=== PATIENT | female | born 1995 | race Caucasian/White ===

== ENCOUNTER 2017-12-13 13:31 | Emergency (ER) | payer MEDICAID, SELFPAY ==
[2017-12-13 13:46] VITALS: BP 107/60; PULSE 97; RESP 18; TEMP 36.8; O2SAT 99; BMI 32.4
--- NOTE | 2017-12-13 14:04 | HMH.EDUTC ---
[facility] [place] Clinical Impression: Viral upper respiratory illness Disposition: Home, Self-Care Condition on Discharge: Good Instructions: Common Cold, DI for Viral Upper Respiratory Infection -- Adult Additional Instructions: Considering family tested positive for influenza today you may have been tested early, You have been prescribed Tamiflu At this time I want you to take one tablet daily unless you began to run a fever then take prescribed influenza dose of one tablet twice daily Follow up with your family doctor REturn if needed Prescriptions: Brompheniramine/Pseudoephed/Dm [Bromfed DM Cough Syrup 5mL] 10 ml PO Q4H PRN #200 syrup PRN Reason: Cough Oseltamivir Phosphate [Tamiflu 75mg Capsule] 75 mg PO BID #10 cap Time of Disposition: 14:48 Medical Decision Making - Medical Records Medical records reviewed: Yes: I reviewed the patient's medical records. Vital Signs: 12/13/17 13:46 Temperature 98.2 F Temperature Source Temporal Artery Scan Pulse Rate [Right] 97 H Respiratory Rate 18 Blood Pressure [Right Arm] 107/60 Blood Pressure Mean [Right Arm] 75 Blood Pressure Source [Right Arm] Automatic Cuff Blood Pressure Position [Right Arm] Sitting 02 Sat by Pulse Oximetry 99 Oxygen Delivery Method Room Air - Kamari Inquiry Pt receiving controlled substance: No Kamari was queried for this patient: No [facility] [place] - General Stated complaint: cough congestion vinson ears fever Mode of Arrival: Ambulatory Source of Information: Patient Limitations: No Limitations Description of Symptoms (Recalled from Triage Doc. by RN): COUGH CONGESTION FEVER HEENT Symptoms (Recalled from RN notes): Yes Resp Symptoms (Recalled from RN notes): No Skin Symptoms (Recalled from RN notes): No MS Symptoms (Recalled from RN notes): No Functional Status (Recalled from RN notes): N - History of Present Illness Provider Complaint: Patient state that she has not been feeling well for several days States that she feels like she may have the flu State that she has been having sinus congestion, cough and bodyaches along with fever State that symptoms have continued to get worse since yesterday so she came in today to get seen - Related Data Home Medications Medication Instructions Recorded Confirmed Nadolol [Corgard 20mg tablet] 20 mg PO DAILY 12/13/17 12/13/17 Previous Rx's Medication Instructions Recorded Brompheniramine/Pseudoephed/Dm 10 ml PO Q4H PRN #200 syrup 12/13/17 [Bromfed DM Cough Syrup 5mL] Oseltamivir Phosphate [Tamiflu 75 mg PO BID #10 cap 12/13/17 75mg Capsule] Allergies Allergy/AdvReac Type Severity Reaction Status Date / Time azithromycin [From Zithromax] Allergy Intermediate I-RASH Verified 12/13/17 13:51 cefixime [From Suprax] Allergy Unknown ITCHING,HIV Verified 12/13/17 13:51 ES latex Allergy Unknown VOMITING,SW Verified 12/13/17 13:51 ELLING tramadol Allergy Unknown I-RASH,HEAD Verified 12/13/17 13:51 ACHE - Worker's Comp Is this a Worker's Comp case?: No [facility] History I have reviewed the patient's past medical history: Yes - *Social History Smoking Status: Current every day smoker Tobacco Type: cigarettes Alcohol Intake: never - Psychiatric History Expresses thoughts of harming self/others: None Suicide Plan Description: No Plan ROS Obtained: Yes All systems reviewed & no additional complaints - Constitutional Constitutional: Reports body ache, Reports chills, Reports fever(s) - ENT Ears, Nose, Mouth, and Throat: Reports sinus pain, Reports sinus pressure - Respiratory Respiratory: Yes cough Physical Exam - General General appearance: alert, in no apparent distress - Expanded ENT Exam Nose exam: Present: sinus tenderness, other (Reports tenderness under eyes) Comment: Throat red, irritated, drainage noted - Respiratory Respiratory exam: Present: normal lung sounds bilaterally. Absent: respiratory distress - Cardiovascular Cardiovas
[2017-12-13 19:43] LABS: UTC Strep Screen (Rapid) Negative (Negative)
[2017-12-13 19:43] LABS: UTC Influenza A Antigen Negative (Negative); UTC Influenza B Antigen Negative (Negative)
== END 2017-12-13 15:01 | disposition home or self-care (01) ==
PROVIDERS: Emergency Provider Nurse Practitioner
DX: J06.9 Acute upper respiratory infection, unspecified (principal); F17.210 Nicotine dependence, cigarettes, uncomplicated; Z79.899 Other long term (current) drug therapy
CPT/HCPCS: 87804; 87880; 99201

== ENCOUNTER 2018-02-18 10:35 | Emergency (ER) | payer MEDICAID, SELFPAY ==
[2018-02-18 10:57] VITALS: BP 102/66; PULSE 72; RESP 18; TEMP 36.6; O2SAT 98; BMI 31.4
--- NOTE | 2018-02-18 11:19 | HMH.EDUTC ---
[facility] [place]: Nausea Disposition: Home, Self-Care Condition on Discharge: Good Instructions: DI for Nausea -- Adult, DI for Vomiting -- Adult, Diarrhea, Loperamide Additional Instructions: Make sure that for the next 24 hours you drink plenty of gatoraid, no fried or spicy foods. Then slowly began to ear dry toast and rice then slowly progress to solid foods Follow up with family doctor in 24-48 hours if no improvement or worsening of symptoms Return if needed Straight to ER if any life threatening sympotms Prescriptions: Ondansetron [Zofran 4mg ODT] 4 mg PO Q8H #10 tab.rapdis Referrals: Leon Brown MD [Primary Care Provider] - As needed Time of Disposition: 11:23 Medical Decision Making - Medical Records Medical records reviewed: Yes: I reviewed the patient's medical records. - Kamari Inquiry Pt receiving controlled substance: No Kamari was queried for this patient: No Vital Signs: 02/18/18 10:57 Temperature 97.9 F Temperature Source Oral Pulse Rate [Right Radial] 72 Respiratory Rate 18 Blood Pressure [Right Arm] 102/66 Blood Pressure Mean [Right Arm] 78 02 Sat by Pulse Oximetry 98 Oxygen Delivery Method Room Air [facility] [place] - General Stated complaint: Vomiting;Diarrhea Time Seen by Provider: 02/18/18 11:05 Mode of Arrival: Family Vehicle Source of Information: Patient Limitations: No Limitations Description of Symptoms (Recalled from Triage Doc. by RN): PT C/O NAUSEA, VOMITING, AND DIARRHEA FOR 3-4 DAYS. HEENT Symptoms (Recalled from RN notes): No Resp Symptoms (Recalled from RN notes): No Skin Symptoms (Recalled from RN notes): No MS Symptoms (Recalled from RN notes): No Functional Status (Recalled from RN notes): NA - History of Present Illness Provider Complaint: Patient state that she has been having nausea vomiting and diarrhea on and off for the last 3-4 days State thats that she has taken Phenergan but it makes her sleep and unable to take care of her children State that diarrhea and vomiting is better today but she is still having nausea State that she was wanting to see if there was something else she could get besides the phenergan - Related Data Previous Rx's Medication Instructions Recorded Ondansetron [Zofran 4mg ODT] 4 mg PO Q8H #10 tab.rapdis 02/18/18 Allergies Allergy/AdvReac Type Severity Reaction Status Date / Time azithromycin [From Zithromax] Allergy Intermediate I-RASH Verified 02/18/18 11:01 cefixime [From Suprax] Allergy Unknown ITCHING,HIV Verified 02/18/18 11:01 ES latex Allergy Unknown VOMITING,SW Verified 02/18/18 11:01 ELLING tramadol Allergy Unknown I-RASH,HEAD Verified 02/18/18 11:01 ACHE - Worker's Comp Is this a Worker's Comp case?: No [facility] History I have reviewed the patient's past medical history: Yes Medical History: Denies:: Cancer, Diabetes Mellitus Type 1, Diabetes Mellitus Type 2, MRSA Laterality Cases: Bilateral: Tonsillectomy Amputation: No - Social History Smoking Status: Current every day smoker Tobacco Type: cigarettes Alcohol Intake: never - Psychiatric History Expresses thoughts of harming self/others: None Suicide Plan Description: No Plan ROS Obtained: Yes All systems reviewed & no additional complaints - Gastrointestinal Gastrointestingal: Reports: diarrhea, nausea, vomiting. Denies: abdominal pain Physical Exam - General General appearance: alert, in no apparent distress - ENT ENT exam: Present: normal exam, normal oropharynx, mucous membranes moist, TM's normal bilaterally, normal external ear exam - Respiratory Respiratory exam: Present: normal lung sounds bilaterally. Absent: respiratory distress - Cardiovascular Cardiovascular exam: Present: regular rate, normal rhythm. Absent: JVD - Abdominal Exam Abdominal exam: Present: soft, normal bowel sounds. Absent: distention, tenderness, guarding, hyperactive bowel sounds - Neurological Exam Neurolo
--- NOTE | 2018-02-18 11:23 | ED_ITS ---
[facility] [place]ression: Nausea Disposition: Home, Self-Care Condition on Discharge: Good Instructions: DI for Nausea -- Adult, DI for Vomiting -- Adult, Diarrhea, Loperamide Additional Instructions: Make sure that for the next 24 hours you drink plenty of gatoraid, no fried or spicy foods. Then slowly began to ear dry toast and rice then slowly progress to solid foods Follow up with family doctor in 24-48 hours if no improvement or worsening of symptoms Return if needed Straight to ER if any life threatening sympotms Prescriptions: Ondansetron [Zofran 4mg ODT] 4 mg PO Q8H #10 tab.rapdis Referrals: Leon Brown MD [Primary Care Provider] - As needed Time of Disposition: 11:23 Medical Decision Making - Medical Records Medical records reviewed: Yes: I reviewed the patient's medical records. - Kamari Inquiry Pt receiving controlled substance: No Kamari was queried for this patient: No Vital Signs: 02/18/18 10:57 Temperature 97.9 F Temperature Source Oral Pulse Rate [Right Radial] 72 Respiratory Rate 18 Blood Pressure [Right Arm] 102/66 Blood Pressure Mean [Right Arm] 78 02 Sat by Pulse Oximetry 98 Oxygen Delivery Method Room Air [facility] [place] - General Stated complaint: Vomiting;Diarrhea Time Seen by Provider: 02/18/18 11:05 Mode of Arrival: Family Vehicle Source of Information: Patient Limitations: No Limitations Description of Symptoms (Recalled from Triage Doc. by RN): PT C/O NAUSEA, VOMITING, AND DIARRHEA FOR 3-4 DAYS. HEENT Symptoms (Recalled from RN notes): No Resp Symptoms (Recalled from RN notes): No Skin Symptoms (Recalled from RN notes): No MS Symptoms (Recalled from RN notes): No Functional Status (Recalled from RN notes): NA - History of Present Illness Provider Complaint: Patient state that she has been having nausea vomiting and diarrhea on and off for the last 3-4 days State thats that she has taken Phenergan but it makes her sleep and unable to take care of her children State that diarrhea and vomiting is better today but she is still having nausea State that she was wanting to see if there was something else she could get besides the phenergan - Related Data Previous Rx's Medication Instructions Recorded Ondansetron [Zofran 4mg ODT] 4 mg PO Q8H #10 tab.rapdis 02/18/18 Allergies Allergy/AdvReac Type Severity Reaction Status Date / Time azithromycin [From Zithromax] Allergy Intermediate I-RASH Verified 02/18/18 11: 01 cefixime [From Suprax] Allergy Unknown ITCHING,HIV Verified 02/18/18 11:01 ES latex Allergy Unknown VOMITING,SW Verified 02/18/18 11:01 ELLING tramadol Allergy Unknown I-RASH,HEAD Verified 02/18/18 11:01 ACHE - Worker's Comp Is this a Worker's Comp case?: No [facility] History I have reviewed the patient's past medical history: Yes Medical History: Denies:: Cancer, Diabetes Mellitus Type 1, Diabetes Mellitus Type 2, MRSA Laterality Cases: Bilateral: Tonsillectomy Amputation: No - Social History Smoking Status: Current every day smoker Tobacco Type: cigarettes Alcohol Intake: never - Psychiatric History Expresses thoughts of harming self/others: None Suicide Plan Description: No Plan ROS Obtained: Yes All systems reviewed & no additional complaints - Gastrointestinal Gastrointestingal: Reports: diarrhea, nausea,
[2018-02-18 11:29] VITALS: BP 105/72; PULSE 78; RESP 18; TEMP 36.7; O2SAT 100
== END 2018-02-18 11:29 | disposition home or self-care (01) ==
PROVIDERS: Emergency Provider Nurse Practitioner; Family Provider Internal Medicine Adolescent Medicine; PCP Family Medicine
DX: R11.0 Nausea (principal); R19.7 Diarrhea, unspecified; F17.210 Nicotine dependence, cigarettes, uncomplicated; Z88.1 Allergy status to other antibiotic agents
CPT/HCPCS: 99201

== ENCOUNTER → 2018-05-22 14:25 | Outpatient (CLI) | payer MEDICAID, SELFPAY ==
[2018-05-22 14:47] LABS: Basophils # 0.1 K/mm3 (0-0.2); Basophils % 0.6 % (0.1-2.0); Eosinophils # 0.2 K/mm3 (0.0-0.4); Eosinophils % 1.9 % (0.1-12.0); Hematocrit 43.3 % (37.0-47.0); Hemoglobin 13.5 g/dL (12.2-16.2); Lymphocytes # 1.9 K/mm3 (0.7-4.5); Lymphocytes % 21.1 K/mm3 (10-50); Mean Corpuscular HGB Conc 31.3 g/dL (31.8-35.4); Mean Corpuscular Hemoglobin 28.7 pg (27.0-31.2); Mean Corpuscular Volume 91.8 fl (81-99); Mean Platelet Volume 9.9 fl (7.4-10.4); Monocytes # 0.5 K/mm3 (0.1-1.0); Monocytes % 5.3 % (1.7-9.3); Neutrophils # 6.5 K/mm3 (1.8-7.8); Neutrophils % 71.1 % (37.0-80.0); Platelet Count 180 K/mm3 (142-424); Red Blood Count 4.72 M/mm3 (4.20-5.40); Red Cell Distribution Width 13.1 % (11.5-17.5); White Blood Count 9.2 K/mm3 (4.8-10.8)
[2018-05-22 15:21] LABS: HCG Qualitative, Serum Negative (Negative)
[2018-05-22 15:40] LABS: Free T4 (Free Thyroxine) 1.19 ng/dl (0.76-1.46); Thyroid Stimulating Hormone 0.55 uIU/ml (0.358-3.740)
== END ==
PROVIDERS: Visit Provider Nurse Practitioner Family
DX: N93.9 Abnormal uterine and vaginal bleeding, unspecified (principal)
CPT/HCPCS: 36415; 84439; 84443; 84703; 85025

== ENCOUNTER → 2018-06-12 13:05 | Outpatient (CLI) | payer MEDICAID, SELFPAY ==
--- NOTE | 2018-06-12 13:08 | US_ITS ---
US transvaginal HISTORY: Left lower quadrant pelvic pain ITS.REASON: DUB ORDERING PHYSICIAN: Millicent Mayer PATIENT AGE: 23 years Comparison: And sagittal ultrasound the pelvis 12/29/2014 FINDINGS: The uterus is mildly enlarged measuring 8.5 x 3.9 x 4.5 cm. The endometrial echo appears normal and there is a tiny amount of fluid within the endometrial cavity. The left ovary appears normal size and has a couple tiny follicular cysts.. The right ovary is normal size and shows a couple of follicular cysts as well. There is moderate cul-de-sac fluid more than physiologic and possibly the been a recently ruptured ovarian cyst. IMPRESSION: Mild uterine enlargement with increased amount of cul-de-sac fluid as noted
== END ==
PROVIDERS: Family Provider Internal Medicine Adolescent Medicine; PCP Family Medicine; Visit Provider Nurse Practitioner Family
DX: N93.9 Abnormal uterine and vaginal bleeding, unspecified (principal)
CPT/HCPCS: 76830

== ENCOUNTER → 2018-08-03 12:21 | Outpatient (CLI) | payer MEDICAID, SELFPAY ==
[2018-08-06 05:25] LABS: HIV Screen 4th Generation wRfx Non Reactive (Non Reactive)
[2018-08-08 07:46] LABS: HSV, IgM I/II Combination <0.91 Ratio (0.00-0.90)
== END ==
PROVIDERS: PCP Family Medicine; Visit Provider Nurse Practitioner Family
DX: Z20.2 Contact with and (suspected) exposure to infections with a predominantly sexual mode of transmission (principal)
CPT/HCPCS: 36415; 86703; 86790; G0432

== ENCOUNTER → 2018-08-08 13:38 | Outpatient (CLI) | payer MEDICAID, SELFPAY ==
[2018-08-08 14:15] LABS: Hematocrit 41.3 % (37.0-47.0); Hemoglobin 13.4 g/dL (12.2-16.2)
[2018-08-08 15:22] LABS: Anion Gap 11.4 mEq/L (5-15); Blood Urea Nitrogen 11 mg/dL (7-18); Calcium 9.6 mg/dL (8.5-10.1); Carbon Dioxide 27 mmol/L (21.0-32.0); Chloride 107 mmol/L (98-107); Creatinine,Serum 0.83 mg/dL (0.55-1.02); Estimated Glomerular Filt Rate 84 ml/min (>60); GFR (African American) 102 ML/MIN (>60); Glucose 80 mg/dL (74-106); Potassium 4.4 mmoL/L (3.5-5.1); Sodium 141 mmol/L (136-145)
[2018-08-08 15:53] LABS: HCG Qualitative, Serum Negative (Negative)
== END ==
PROVIDERS: PCP Family Medicine; Visit Provider Obstetrics & Gynecology
DX: Z01.818 Encounter for other preprocedural examination (principal); N93.8 Other specified abnormal uterine and vaginal bleeding
CPT/HCPCS: 36415; 80048; 84703; 85014; 85018

== ENCOUNTER → 2019-07-30 13:15 | Outpatient (CLI) | payer MEDICAID, SELFPAY ==
--- NOTE | 2019-07-30 13:18 | US_ITS ---
PROCEDURE: US TRANSVAGINAL CLINICAL INDICATION: us t/v- pelvic pain Pelvic pain COMPARISON: TRANVAG US transvaginal from 06/12/2018 FINDINGS: The uterus has an unremarkable appearance 8 x 4 x 4.7 cm with a combined endometrial thickness of 7 mm. No uterine mass evident. Left ovary is 3 x 1.5 cm with blood flow noted and no mass. Right ovary is 3.5 x 1.9 cm with small follicles and blood flow noted. There is a 1 cm cyst within the right ovary with ring of fire appearance consistent with corpus luteum cyst. No cul-de-sac fluid evident. IMPRESSION: 1 cm right corpus luteum ovarian cyst otherwise negative Dictated by: Norman De La Rosa MD 07/30/2019 18:59 Electronically signed by Norman De La Rosa MD in [place] 07/30/2019 18:59
== END ==
PROVIDERS: PCP Family Medicine; Visit Provider Obstetrics & Gynecology
DX: R10.2 Pelvic and perineal pain (principal)
CPT/HCPCS: 76830

== ENCOUNTER 2020-06-01 14:05 | Emergency (ER) | payer OTHER, SELFPAY ==
--- NOTE | 2020-06-01 14:06 | PC.NURSE ---
c-collar placed on pt
--- NOTE | 2020-06-01 14:09 | CT_ITS ---
PROCEDURE: CT HEAD/BRAIN WO CON CLINICAL INDICATION: fall, pain Head injury with headache/pain, contusion, abrasion or hematoma COMPARISON: No exams were available for comparison TECHNIQUE: Axial images obtained. All CT scans at the facility use one or more dose reduction, viz: automated exposure control, ma/kV adjustment per patient size (including targeted exams where dose is matched to indication, i.e. head), or iterative reconstruction technique. FINDINGS: No midline shift, mass effect, intracranial hemorrhage, hydrocephalus, or extra-axial fluid collection is evident. There is asymmetry in the temporal horns of the lateral ventricles with the right side more prominent than the left. This is of questionable clinical significance. No obvious hemorrhage or mass evident on the left. Nonemergent MRI may provide further evaluation if clinically desired. The calvarium has an unremarkable appearance. There is an air-fluid level in the left maxillary sinus no sinus air-fluid level. IMPRESSION: 1. No definite acute intracranial findings. 2. Asymmetry in the temporal horns of the lateral ventricles which may be better evaluated with nonemergent MRI 3. Air-fluid level left maxillary sinus which could be inflammatory or posttraumatic Dictated by: Norman De La Rosa MD 06/01/2020 15:44 Electronically signed by Norman De La Rosa MD in [facility] 06/01/2020 15:44
--- NOTE | 2020-06-01 14:09 | CT_ITS ---
PROCEDURE: CT CERVICAL SPINE WO CON CLINICAL INDICATION: fall, pain Neck injury with pain, contusion/abrasion or hematoma, cervical sprain/strain the COMPARISON: No exams were available for comparison TECHNIQUE: Axial images obtained with sagittal and coronal reformats. All CT scans at the facility use one or more dose reduction, viz: automated exposure control, ma/kV adjustment per patient size (including targeted exams where dose is matched to indication, i.e. head), or iterative reconstruction technique. Axial spiral CT scanning performed of the cervical spine beginning at the base of the skull and continuing to the upper T-spine. 3-D multiplanar reconstruction with 3-D manipulation of volumetric data set in image rendering was completed by the radiologist and/or technologist with the supervision of the radiologist on independent workstation. FINDINGS: There is straightening/reversal of the normal lordosis which may be due to patient positioning or muscle spasm. The. No fracture or dislocation. No lytic or blastic change. Lung apices are clear. The thyroid gland is slightly enlarged IMPRESSION: No acute fracture. Loss of lordosis Dictated by: Norman De La Rosa MD 06/01/2020 15:47 Electronically signed by Norman De La Rosa MD in [place] 06/01/2020 15:47
--- NOTE | 2020-06-01 14:13 | HMH.EDGENADL ---
ED Disposition Clinical Impression: Concussion Qualifiers: Encounter type: initial encounter Loss of consciousness presence/duration: without LOC Qualified Code(s): S06.0X0A - Concussion without loss of consciousness, initial encounter Cervical strain, acute Qualifiers: Encounter type: initial encounter Qualified Code(s): S16.1XXA - Strain of muscle, fascia and tendon at neck level, initial encounter Disposition: Home, Self-Care Condition on Discharge: Good Instructions: DI for Concussion, Concussion, DI for Neck Pain Additional Instructions: Low up with your PCP in the next 2 to 3 days. Ibuprofen for pain. Cyclobenzaprine as needed. Follow concussion precautions. You have any new, changing, worsening, or concerning symptoms, come back to the emergency department. Prescriptions: Cyclobenzaprine HCl [Cyclobenzaprine 5mg Tab] 5 mg PO Q8H 3 Days #9 tab Transmission Status: Received by [facility] Referrals: Leon Brown MD [Primary Care Provider] - Time of Disposition: 16:55 - Critical Care Critical Care Time: No Attestation: On 06/01/20, the high probability of a clinically significant, sudden or life threatening deterioration of the following system(s) required my full and direct attention, intervention and personal management. The time I documented below is in addition to time spent performing reported procedures but includes the following listed in this critical care notation. Medical Decision Making - Medical Records MR Comment: 25-year-old female with no past medical history presents emergency department with headache and neck pain after a fall. She arrives to the ED hemodynamically stable, with reassuring vital signs, and looks well on exam. She likely has a concussion and cervical strain, however, given her increasing headache and neck pain will get a CT head and C-spine to rule out intracranial injury or fracture and reassess. He has no focal neurological deficits in bilateral upper extremities with full strength and range of motion. On reassessment, she remains well. CT of the head and C-spine personally reviewed and read by radiology and do not show any signs of acute injury. I did speak with her about the lateral ventricles on her CT head and the possibility of a future nonemergent MRI to further evaluate, however this is nothing to do with her trauma today and she is completely neurologically intact. Likely concussion symptoms with cervical strain. I advised that she follow-up with her PCP in the next 2 to 3 days and take ibuprofen and muscle relaxer if needed. She was given concussion precautions. She was given strict return precautions and discharge instructions and verbalized an understanding and agreement to the plan. Safe to discharge. - Kamari Inquiry Pt receiving controlled substance: No Vital Signs: 06/01/20 14:19 06/01/20 14:36 06/01/20 15:44 Temperature 98.4 F Temperature Source Oral Pulse Rate Pulse Rate [Right Radial] 74 86 70 Respiratory Rate 18 Blood Pressure Blood Pressure [Right Arm] 135/87 110/62 96/63 L Blood Pressure Mean [Right Arm] 103 78 74 Blood Pressure Source [Right Arm] Automatic Cuff Automatic Cuff Automatic Cuff Blood Pressure Position Blood Pressure Position [Right Arm] Sitting Sitting Sitting 02 Sat by Pulse Oximetry 99 99 98 Oxygen Delivery Method Room Air Room Air Room Air 06/01/20 16:06 06/01/20 17:23 Temperature 98 F Temperature Source Oral Pulse Rate 78 Pulse Rate [Right Radial] 79 Respiratory Rate 16 Blood Pressure 112/65 Blood Pressure [Right Arm] 98/68 L Blood Pressure Mean [Right Arm] 78 Blood Pressure Source [Right Arm] Automatic Cuff Blood Pressure Position Sitting Blood Pressure Position [Right Arm] Sitting 02 Sat by Pulse Oximetry 68 L Oxygen Delivery Method Room Air Room Air - Lab Data Lab Results 06/01/20 14:12: Urine HCG, Qual Negative Orders (Tests/Meds): ED MEDICATIONS Discontinued Me
[2020-06-01 14:19] VITALS: BP 135/87; PULSE 74; RESP 18; TEMP 36.9; O2SAT 99; BMI 27.0
[2020-06-01 14:25] LABS: Urine Pregnancy, HCG Qual. Negative (Negative)
--- NOTE | 2020-06-01 14:25 | PC.NURSE ---
rad notified of CT orders, spoke with erinn
[2020-06-01 14:36] VITALS: BP 110/62; PULSE 86; O2SAT 99
--- NOTE | 2020-06-01 14:51 | PC.NURSE ---
pt with rad
--- NOTE | 2020-06-01 15:06 | PC.NURSE ---
pt return from ct
[2020-06-01 15:44] VITALS: BP 96/63; PULSE 70; O2SAT 98
[2020-06-01 16:06] VITALS: BP 98/68; PULSE 79; O2SAT 68
[2020-06-01 17:23] VITALS: BP 112/65; PULSE 78; RESP 16; TEMP 36.6; O2SAT 98
== END 2020-06-01 17:26 | disposition home or self-care (01) ==
PROVIDERS: Emergency Provider Emergency Medicine; PCP Family Medicine
DX: S06.0X0A Concussion without loss of consciousness, initial encounter (principal); S16.1XXA Strain of muscle, fascia and tendon at neck level, initial encounter; W01.0XXA Fall on same level from slipping, tripping and stumbling without subsequent striking against object, initial encounter; Y92.89 Other specified places as the place of occurrence of the external cause; Z91.040 Latex allergy status; F41.9 Anxiety disorder, unspecified; F17.210 Nicotine dependence, cigarettes, uncomplicated
CPT/HCPCS: 70450; 72125; 81025; 99283

== ENCOUNTER 2020-06-16 16:09 | Emergency (ER) | payer OTHER, SELFPAY ==
[2020-06-16 16:21] VITALS: BP 127/68; PULSE 75; RESP 20; TEMP 36.9; O2SAT 100; BMI 27.0
--- NOTE | 2020-06-16 16:28 | HMH.EDUTC ---
[facility] [place] Disposition Clinical Impression: Irregular heart beat Disposition: Still a Patient Condition on Discharge: Good Referrals: Leon Brown MD [Primary Care Provider] - Time of Disposition: 16:41 Medical Decision Making - Kamari Inquiry Pt receiving controlled substance: No Vital Signs: 06/16/20 16:21 Temperature 98.5 F Temperature Source Temporal Artery Scan Pulse Rate [Right Brachial] 75 Respiratory Rate 20 Blood Pressure [Right Arm] 127/68 Blood Pressure Mean [Right Arm] 87 Blood Pressure Source [Right Arm] Automatic Cuff Blood Pressure Position [Right Arm] Sitting 02 Sat by Pulse Oximetry 100 Oxygen Delivery Method Room Air Orders (Tests/Meds): ORDERS Category Date Time Status 12-lead EKG Request [ECG Request by /Kathy] Stat Y 06/16/20 16:28 Ordered Medical Decision Narrative: pt was sent to ed for eval due to abnormal ekg and c/o of heart burn, not feeling right and pain in back [facility] [place] HPI - General Chief complaint: Urgent Treatment Center Stated complaint: Low grade fevee with ear pain Time Seen by Provider: 06/16/20 16:29 Mode of Arrival: Ambulatory Source of Information: Patient Limitations: No Limitations HEENT Symptoms (Recalled from RN notes): Yes Resp Symptoms (Recalled from RN notes): Yes Skin Symptoms (Recalled from RN notes): No MS Symptoms (Recalled from RN notes): No Functional Status (Recalled from RN notes): none - History of Present Illness Provider Complaint: 25 yr old female presents for rocco ear pain, heartburn and pain in upper back and not feeling well. - Related Data Home Medications Medication Instructions Recorded Confirmed Cyclobenzaprine HCl 5 mg PO Q8H 06/16/20 06/16/20 [Cyclobenzaprine 5mg Tab] Allergies Allergy/AdvReac Type Severity Reaction Status Date / Time azithromycin [From Zithromax] Allergy Intermediate I-RASH Verified 06/16/20 16:13 cefixime [From Suprax] Allergy Unknown ITCHING,HIV Verified 06/16/20 16:13 ES latex Allergy Unknown VOMITING,SW Verified 06/16/20 16:13 ELLING tramadol Allergy Unknown I-RASH,HEAD Verified 06/16/20 16:13 ACHE - Worker's Comp Is this a Worker's Comp case?: No [facility] History - Hepatitis A Screen Drug use history?: No High risk sexual behaviors?: No History of sexually transmitted infection?: No Currently employed?: No Childcare worker?: No Do you have indoor plumbing?: Yes Do you have electricity?: Yes Attestation statement:: This patient has been screened for Hepatitis A risk factors. I have reviewed the patient's past medical history: Yes Medical History: Reports:: Anxiety Denies:: Cancer, Depression, Diabetes Mellitus Type 1, Diabetes Mellitus Type 2, Hypertension, Internal Pacemaker, MRSA, Seizures Other Medical History: Denies: Blood Transfusion Reaction Laterality Cases: Bilateral: Tonsillectomy Other Surgeries: Yes: . No: Pacemaker Amputation: No Fractures: No Comment: 3 cyst from ovaries removed, wisdom teeth - Social History Smoking Status: Current every day smoker Tobacco Type: cigarettes # Packs/Day (cigarettes): 1 Alcohol Intake: never Alcohol Intake Frequency:: holidays/special occasions only Substance Use Type: denies use Occupational Status: employed Housing: house Household Members: family - Psychiatric History Pschychiatric History:: Reports:: Anxiety Denies:: Depression Family Hx:: Cancer, Diabetes, Heart Attack, Hyperlipidemia, Hypertension, Stroke, Thyroid Disorder, Asthma, Anemia ROS Obtained: Yes Systems reviewed as appropriate & no additional complaints - Constitutional Constitutional: Reports system reviewed and no additional complaints, except as docu, Denies fever(s) - Eyes Eyes: Reports system reviewed and no additional complaints, except as docu, Denies dry eyes - ENT Ears, Nose, Mouth, and Throat: Reports system reviewed and no additional complaints, except as docu, Reports otalgia, Denies nose pain - Cardiovascular
--- NOTE | 2020-06-16 16:36 | ECG_ITS ---
APPROVED REPORT Exam: Resting ECG HR:84 bpm ECG Measurements Heart Rate 84 AXES WV 110 P 40 QRSd 70 QRS 33 QT 346 T 28 QTc 408 <Conclusion> Sinus rhythm with sinus arrhythmia with short W[place] Otherwise normal ECG Electronically signed by : Leon Smallwood, 06/21/2020 21:22:48
[2020-06-16 16:48] VITALS: BP 128/80; PULSE 95; RESP 14; TEMP 37.2; O2SAT 99; BMI 26.6
--- NOTE | 2020-06-16 16:52 | HMH.EDGENADL ---
ED Disposition Clinical Impression: Dyspepsia, Ear pain, left Disposition: Home, Self-Care Condition on Discharge: Good Instructions: DI for Heartburn, DI for Ear Pain-Adult Referrals: Leon Brown MD [Primary Care Provider] - 3 days - Critical Care Critical Care Time: No Attestation: On 06/16/20, the high probability of a clinically significant, sudden or life threatening deterioration of the following system(s) required my full and direct attention, intervention and personal management. The time I documented below is in addition to time spent performing reported procedures but includes the following listed in this critical care notation. Medical Decision Making - Medical Records Medical records reviewed: Yes: I reviewed the patient's medical records. - Kamari Inquiry Pt receiving controlled substance: No Vital Signs: 06/16/20 16:21 06/16/20 16:48 Temperature 98.5 F 99 F Temperature Source Temporal Artery Scan Oral Pulse Rate [Right Brachial] 75 95 H Respiratory Rate 20 14 Blood Pressure [Right Arm] 127/68 128/80 Blood Pressure Mean [Right Arm] 87 96 Blood Pressure Source [Right Arm] Automatic Cuff Blood Pressure Position [Right Arm] Sitting 02 Sat by Pulse Oximetry 100 99 Oxygen Delivery Method Room Air - Lab Data Lab Results 06/16/20 17:13: Urine HCG, Qual Negative Orders (Tests/Meds): ORDERS Category Date Time Status Chest XR 2 view (NOT portable) [XR chest 2V] Stat Exams 06/16/20 16:45 Ordered Urinalysis and Microscopic Stat Lab 06/16/20 17:13 Received 12-lead EKG Request [ECG Request by /Kathy] Stat Y 06/16/20 16:28 Ordered - ECG Data Tracing #1 EKG at 1636 shows a sinus rhythm with a rate of 84. There is some sinus arrhythmia. Slightly short KS, no delta waves. Otherwise normal QRS and QTc. No STEMI, no signs of acute ischemia. EKG interpreted by me. Medical Decision Narrative: Patient with no chest pain or shortness of breath. Chest x-ray recommended, but patient refused. EKG only shows some sinus arrhythmia and slightly short KS, no delta waves that would indicate WPW. Patient is a smoker and eats a lot of spicy foods with heartburn that improves with Tums and milk. I recommended ranitidine daily with Maalox occasionally if needed. Advise follow-up with primary care provider in 2 to 3 days for reevaluation. History and exam inconsistent with ACS. She is PERC negative. Concerning her initial presenting complaint of ear pain, she does appear to have some serous effusion bilaterally. I recommended decongestants. No otitis media or externa. General Adult HPI - General Chief complaint: Ear Stated complaint: Low grade fevee with ear pain Time Seen by Provider: 06/16/20 16:29 Mode of Arrival: Ambulatory Limitations: No Limitations Description of Symptoms (Recalled from ER Triage Doc. by RN): Pt states for the last week she has been having bilateral ear pain, low grade fever, and neck pain. Pt sent from [facility] because she has been having heart burn for the past week and has a hx of a mitral valve prolapse. - History of Present Illness HPI narrative: This is a 25-year-old female who initially presented to the urgent treatment center today for left ear pain. She was told she has some fluid on the ear, but then later complained of some heartburn over the last 1 to 2 weeks, so was sent over here for further evaluation after her EKG showed sinus arrhythmia. Patient does not have any heartburn currently. She is a smoker and eats a lot of spicy foods. She has tried Tums and milk which do help temporarily. Currently no heartburn or abdominal pain. She denies any chest pain, shortness of breath. She does have a history of mitral valve prolapse and was previously prescribed beta-blockers, but did not like the way they made her feel, so stopped them. She has not had any complications or problems since. - Related Data Home Medications Medication Instructions
[2020-06-16 17:27] LABS: Microscopic, Urine URINE MICROSCOPIC (MICROSCOPIC)
[2020-06-16 17:37] LABS: Appearance,Urine CLEAR (Clear); Bilirubin,Urine Negative (Negative); Blood, Urine Negative (Negative); Color,Urine YELLOW (Yellow); Glucose,Urine (UA) Negative (Negative); Ketones,Urine Negative (Negative); Leukocyte Esterase,Urine Negative (Negative); Nitrate,Urine Negative (Negative); Protein,Urine Negative (Negative); Specific Gravity, Urine 1.015 (1.005-1.030); Urobilinogen,Urine 0.2 EU/dl (0.2)
[2020-06-16 17:44] LABS: Urine Pregnancy, HCG Qual. Negative (Negative)
[2020-06-16 18:00] LABS: Bacteria,Urine Trace /lpf; Squamous Epithelial Cell,Urine Occasional #/hpf (0-5); WBC,Urine Occasional #/hpf (0-3)
[2020-06-16 18:05] VITALS: BP 124/85; PULSE 80; RESP 18; TEMP 36.7; O2SAT 98
== END 2020-06-16 18:06 | disposition home or self-care (01) ==
LOC: UTC 16:41 → ER 16:42
PROVIDERS: Emergency Medicine; Emergency Provider Nurse Practitioner Family; PCP Family Medicine
DX: R10.13 Epigastric pain (principal); F17.210 Nicotine dependence, cigarettes, uncomplicated; F41.9 Anxiety disorder, unspecified; M54.2 Cervicalgia; Z88.1 Allergy status to other antibiotic agents; Z91.040 Latex allergy status; I34.1 Nonrheumatic mitral (valve) prolapse
CPT/HCPCS: 81001; 81025; 93005; 99282

== ENCOUNTER → 2020-06-24 16:05 | Outpatient (CLI) | payer OTHER, SELFPAY ==
--- NOTE | 2020-06-24 | XR_ITS ---
PROCEDURE: XR CHEST PORTABLE CLINICAL HISTORY: COVID TESTING Cough COMPARISON: CR CXR1 CHEST-PORTABLE from 04/29/2015 CR CXR CHEST(2 VIEWS-NOT PORTABLE) from 10/03/2016 FINDINGS: The cardiomediastinal silhouette and pulmonary vascularity are within normal limits. Lung apices are clipped on the image. The remaining lungs are clear. No acute bony abnormalities. IMPRESSION: No acute finding of the visualized lung back.. Lung apices are not included on the exam Dictated b Norman De La Rosa MD 06/24/2020 18:31 Norman De La Rosa MD in [place] 06/24/2020 18:31
== END ==
PROVIDERS: PCP Family Medicine; Visit Provider Nurse Practitioner
DX: Z03.818 Encounter for observation for suspected exposure to other biological agents ruled out (principal)
CPT/HCPCS: 71045; U0003

== ENCOUNTER → 2020-08-25 10:54 | Outpatient (CLI) | payer OTHER, SELFPAY ==
[2020-08-25 11:32] LABS: Basophils % 0.9 % (0.1-2.0); Eosinophils # 0.1 K/mm3 (0.0-0.4); Eosinophils % 3.3 % (0.1-12.0); Hematocrit 41.3 % (37.0-47.0); Hemoglobin 13.3 g/dL (12.2-16.2); Lymphocytes # 1.6 K/mm3 (0.7-4.5); Lymphocytes % 38.9 % (10-50); Mean Corpuscular HGB Conc 32.2 g/dL (31.8-35.4); Mean Corpuscular Hemoglobin 30.2 pg (27.0-31.2); Mean Corpuscular Volume 93.7 fl (81-99); Mean Platelet Volume 8.9 fl (7.4-10.4); Monocytes # 0.3 K/mm3 (0.1-1.0); Monocytes % 6.4 % (1.7-9.3); Neutrophils % 50.6 % (37.0-80.0); Platelet Count 152 K/mm3 (142-424); Red Blood Count 4.41 M/mm3 (4.20-5.40); Red Cell Distribution Width 12.7 % (11.5-17.5)
[2020-08-25 11:54] LABS: Anion Gap 8.2 mEq/L (5-15); Blood Urea Nitrogen 12 mg/dl (7-17); Calcium 9.7 mg/dl (8.4-10.2); Carbon Dioxide 25 mmol/L (22.0-30.0); Chloride 110 mmol/L (98-107); Estimated Glomerular Filt Rate 87 ml/min (>60); GFR (African American) 105 ML/MIN (>60); Glucose 76 mg/dl (74-100); Potassium 4.2 mmoL/L (3.5-5.1); Sodium 139 mmol/L (136-145)
[2020-08-25 12:03] LABS: HCG Qualitative, Serum Negative (Negative)
[2020-08-25 13:28] LABS: Coronavirus 19 IgG Antibody Negative (Negative); Coronavirus 19 IgM Antibody Negative (Negative)
== END ==
PROVIDERS: Visit Provider Nurse Practitioner Obstetrics & Gynecology
DX: Z01.89 Encounter for other specified special examinations (principal); R10.2 Pelvic and perineal pain; N94.10 Unspecified dyspareunia; N80.9 Endometriosis, unspecified
CPT/HCPCS: 36415; 80048; 84703; 85025; 86328

== ENCOUNTER 2020-08-26 07:27 | Day surgery (SDC) | payer OTHER, SELFPAY ==
[2020-08-24 14:52] VITALS: BMI 27.0
[2020-08-26] VITALS (15 sets, daily range): BP systolic 96–113; BP diastolic 50–70; PULSE 67–118; RESP 12–22; TEMP 36.3–43; O2SAT 90–100
--- NOTE | 2020-08-26 08:17 | P.PN_ITS ---
[facility] Anesthesia Checklist - Patient Identification Patient Identification: Arm Band - Structural Data Admitted From: Home Planned Operative Procedure/s: diagnostic laparoscopy, lysis of adhesions, resection of endometriosis Consent for Planned Operative Procedure(s) Verified: Yes Verified Documents: Surgical Consent, History and Physical - NPO Status Verified Time NPO: 00:00 - Additional verifications Anesthesia Reactions: No Hx Blood Transfusions: Yes Blood Transfusion Reaction: No - Airway Assessment C-Spine Mobility Assessed: Yes (mp2) TMJ Mobility Assessed: Yes Dentition: Good Dentition - Neurological Assessment Level of Consciousness: Awake, Alert - Anesthesia Plan Anesthesia Risk discussed: Yes Anesthesia Plan: Verified ASA Class: II Anesthesia Type: General [facility] History I have reviewed the patient's past medical history: Yes Medical History: Reports:: Anxiety, Valvular Heart Disease ( Mitral Valve Prolapse ) Denies:: Cancer, Depression, Diabetes Mellitus Type 1, Diabetes Mellitus Type 2, Hypertension, Internal Pacemaker, MRSA, Seizures *Have you ever received a pneumonia vaccine?: No *Have you received a flu vaccine this season?: No Other Medical History: Denies: Blood Transfusion Reaction Anesthesia experience/problems:: nac Laterality Cases: Bilateral: Tonsillectomy Other Surgeries: Yes: Cholecystectomy, , Diagnostic Lap, Other. No: Pacemaker Amputation: No Fractures: No - *Social History Last grade of school completed: High school graduate Smoking Status: Current every day smoker Tobacco Type: cigarettes # Packs/Day (cigarettes): 1 Alcohol Intake: never Alcohol Intake Frequency:: holidays/special occasions only Substance Use Type: denies use *Occupational Status:: employed Housing: house Household Members: spouse *Travel in the last 8 weeks: None - Psychiatric History Pschychiatric History:: Reports:: Anxiety Denies:: Depression Family Hx:: Cancer, Diabetes, Heart Attack, Hyperlipidemia, Hypertension, Stroke, Thyroid Disorder, Asthma, Anemia
--- NOTE | 2020-08-26 09:50 | HMH.OPNOTE ---
Date of procedure: 08/26/20 Pre-op Diagnosis:: Pelvic pain, dyspareunia history of endometriosis, history of adhesions Post-op Diagnosis:: Pelvic pain, pelvic peritoneal adhesions Procedure performed:: Diagnostic laparoscopy with extensive lysis of adhesions Surgeon:: Mike Yang MD ETL CONSULTANT:: Damon Shabazz Anesthesia: GETA Estimated blood loss (mL): 75 Clinical Note:: She is a 25-year-old lady who has had previous sections. She has had multiple surgeries for endometriosis and lysis of adhesions. She complains of dyspareunia as well as pain. After having discussed the risks and benefits we elected to perform a laparoscopy with possible resection of endometriosis as well as lysis of adhesions. Operative findings:: She had a normal-appearing uterus with extensive adhesions along the peritoneal scar and anterior abdominal wall. There was an adhesion from the right side of the omentum to the deep pelvis as well. Ovaries and tubes appeared normal. Operative note:: She was taken the operating room where general anesthesia was found be adequate. She was prepped and draped in the normal sterile fashion in the semilithotomy position. Weighted speculum placed in vagina and the anterior lip of the cervix was grasped with a tenaculum. Mcnair dilators used to dilate the cervix to approximately 4 mm. We then inserted a Juli uterine manipulator into the uterine cavity. I changed gloves and injected 10 cc of 0.25% ropivacaine around the umbilicus. I made a small incision within the umbilicus and inserted a Veress needle into the abdominal cavity. The abdominal cavity was then insufflated with carbon oxide gas to pressure of 20 mmHg. I then inserted under direct vision after injecting through and through a 5 mm trocar in the suprapubic area. I identified the inferior epigastric arteries on the left side, went lateral to these and injected through and through. I then placed another 5 mm trocar under direct vision. Findings were as previously stated. I then took down the adhesions along her bladder and anterior abdominal wall as well as the adhesions that were overlying her uterus. The upper abdomen was examined and appeared to be normal. After extensively removing these adhesions. I then rinsed the area well. After assuring hemostasis I then elected to spray the area with Nick. I then inserted an 8 mm trocar in the suprapubic port to allow me to place the Interceed and Gelfoam as well as Surgicel. I then placed 2 large pieces of Interceed over top of the anterior uterus between the uterus and the anterior wall so as to prevent further adhesions. It appeared that I may have perforated the uterus with the dilator and I placed a small piece of Gelfoam into this defect. After assuring hemostasis I then placed a large piece of Surgicel over this as well. I let the gas out of the abdomen once again hemostasis was assured. The pelvis had been previously rinsed well with saline. The abdominal cavity was then reinsufflated and hemostasis was assured. The secondary trochars were removed under direct vision. The gas was let out the abdomen. The primary trocar and camera were removed together. The 8 mm trocar site was then closed deeply with 2-0 Vicryl suture followed by subcuticular 4-0 Monocryl. The 5 mm trocar sites were closed with subcuticular 4-0 Monocryl. Sterile dressings were applied. She tolerated fusion well and was taken to the recovery room in excellent condition. All sponge, instrument and needle counts were correct. Estimated blood loss was less than 75 cc. Condition: stable Disposition: PACU Specimens:: None Complications:: Perforation of the uterus
--- NOTE | 2020-08-26 09:55 | P.PN_ITS ---
[facility] Anesthesia Record Part I Intake, IV Amount: 1,500 Estimated blood loss (mL): 75 Urine output (mL): 150 Blood Pressure: 111/65 SaO2: 93 Pulse Rate: 118 Respiratory Rate: 14 Temperature: 97.6 F Patient is:: Awake, Stable Stable to PACU at:: 09:55
--- NOTE | 2020-08-27 06:44 | HMH.ANESII ---
[facility] Anesthesia Record Part II Discharge Time: 10:50 Destination: Surgical Day Care (OP Surgery) PACU nurse assessment reviewed?: Yes Patient Condition:: Good Anesthesia Complications:: None Swallowing reflex intact?: Yes Cyanosis?: No Blood Pressure: 104/65 Pulse Rate: 86 Temperature: 98.2 F Mental Status: Alert & Oriented Pain level:: 7 Nausea and/or vomitting:: None Intake, IV Amount: 0 (NM)
[2020-08-27 06:47] VITALS: BP 104/65; PULSE 86; TEMP 36.8
== END 2020-08-26 11:25 | disposition home or self-care (01) ==
LOC: OR 07:29
PROVIDERS: PCP Family Medicine; Visit Provider Nurse Practitioner Obstetrics & Gynecology
PROC: (CPT 49329; principal; 2020-08-26 08:45)
DX: K66.0 Peritoneal adhesions (postprocedural) (postinfection) (principal); R10.2 Pelvic and perineal pain; Z87.42 Personal history of other diseases of the female genital tract; F41.9 Anxiety disorder, unspecified; I34.1 Nonrheumatic mitral (valve) prolapse; Z90.89 Acquired absence of other organs; Z72.0 Tobacco use; Z82.3 Family history of stroke; Z83.3 Family history of diabetes mellitus; Z80.9 Family history of malignant neoplasm, unspecified; Z82.5 Family history of asthma and other chronic lower respiratory diseases; Z82.49 Family history of ischemic heart disease and other diseases of the circulatory system
CPT/HCPCS: 49329; 96374; J2405

== ENCOUNTER 2020-10-01 08:59 | Emergency (ER) | payer OTHER, SELFPAY ==
[2020-10-01 09:00] VITALS: BP 125/77; PULSE 105; RESP 16; TEMP 36.8; O2SAT 99; BMI 27.0
--- NOTE | 2020-10-01 09:18 | HMH.EDUTC ---
[facility] Clinical Impression: Viral syndrome Disposition: Home, Self-Care Condition on Discharge: Good Instructions: DI for Viral Syndrome, Preventing the Spread of Coronavirus Discharge Instructions Additional Instructions: Drink plenty of fluids. Take tylenol for pain or fever. Take the medications as directed. Follow up with your regular doctor. GO TO THE ER FOR ANY WORSENING SYMPTOMS Referrals: Leon Brown MD [Primary Care Provider] - Forms: Work/School Release Time of Disposition: 09:52 Medical Decision Making - Medical Records Medical records reviewed: No: I reviewed the patient's medical records. - Kamari Inquiry Pt receiving controlled substance: No Vital Signs: 10/01/20 09:00 10/01/20 10:08 Temperature 98.3 F 98.6 F Temperature Source Oral Oral Pulse Rate 70 Pulse Rate [Right] 105 H Respiratory Rate 16 16 Blood Pressure 126/70 Blood Pressure [Right Arm] 125/77 Blood Pressure Mean [Right Arm] 93 Blood Pressure Source Automatic Cuff Blood Pressure Source [Right Arm] Automatic Cuff Blood Pressure Position Sitting Blood Pressure Position [Right Arm] Sitting 02 Sat by Pulse Oximetry 99 Oxygen Delivery Method Room Air Room Air Orders (Tests/Meds): ORDERS Category Date Time Status Covid-19 Nasal PCR Sendout Andrea Stat Lab 10/01/20 09:45 [place] [facility] [place] - General Stated complaint: Cough, sore throat Time Seen by Provider: 10/01/20 09:35 - History of Present Illness Provider Complaint: She c/o a dry cough and a scratchy sore throat for the past 3 days. - Related Data Allergies Allergy/AdvReac Type Severity Reaction Status Date / Time azithromycin [From Zithromax] Allergy Intermediate I-RASH Verified 10/01/20 09:23 cefixime [From Suprax] Allergy Unknown ITCHING,HIV Verified 10/01/20 09:23 ES latex Allergy Unknown VOMITING,SW Verified 10/01/20 09:23 ELLING tramadol Allergy Unknown I-RASH,HEAD Verified 10/01/20 09:23 AC[facility] History - Hepatitis A Screen Attestation statement:: This patient has been screened for Hepatitis A risk factors. I have reviewed the patient's past medical history: Yes Medical History: Reports:: Anxiety, Valvular Heart Disease ( Mitral Valve Prolapse ) Denies:: Cancer, Depression, Diabetes Mellitus Type 1, Diabetes Mellitus Type 2, Hypertension, Internal Pacemaker, MRSA, Seizures Other Medical History: Denies: Blood Transfusion Reaction Laterality Cases: Bilateral: Tonsillectomy Other Surgeries: Yes: Cholecystectomy, , Diagnostic Lap, Other. No: Pacemaker Amputation: No Fractures: No Comment: 3 cyst from ovaries removed, wisdom teeth - Social History Smoking Status: Current every day smoker Tobacco Type: cigarettes # Packs/Day (cigarettes): 1 Alcohol Intake: never Alcohol Intake Frequency:: holidays/special occasions only Substance Use Type: denies use Occupational Status: employed Housing: house Household Members: family - Psychiatric History Pschychiatric History:: Reports:: Anxiety Denies:: Depression Family Hx:: Cancer, Diabetes, Heart Attack, Hyperlipidemia, Hypertension, Stroke, Thyroid Disorder, Asthma, Anemia ROS Obtained: Yes All systems reviewed & no additional complaints - Constitutional Constitutional: Reports system reviewed and no additional complaints, except as docu, Denies chills, Denies fever(s), Reports poor appetite, Reports malaise - ENT Ears, Nose, Mouth, and Throat: Reports as per HPI - Cardiovascular Cardiovascular: Denies chest pain - Respiratory Respiratory: No chest congestion, Yes cough, No dyspnea, No stridor, No wheezing Physical Exam - General General appearance: alert, in no apparent distress - Head Head exam: atraumatic, normocephalic, normal inspection - Eye Eye exam: Present: normal appearance, PERRL, EOMI - ENT ENT exam: Present: normal exam, normal oropharynx, mucous membranes moist, TM's normal bilaterally, normal ex
[2020-10-01 10:08] VITALS: BP 126/70; PULSE 70; RESP 16; TEMP 37; O2SAT 98
[2020-10-02 15:43] LABS: Covid-19 Nasal PCR Sendout Lex Not Detected
== END 2020-10-01 10:09 | disposition home or self-care (01) ==
PROVIDERS: Emergency Provider Nurse Practitioner Family; PCP Family Medicine
DX: Z20.828 Contact with and (suspected) exposure to other viral communicable diseases (principal); B34.9 Viral infection, unspecified; F41.9 Anxiety disorder, unspecified; I34.1 Nonrheumatic mitral (valve) prolapse; F17.210 Nicotine dependence, cigarettes, uncomplicated; Z90.49 Acquired absence of other specified parts of digestive tract
CPT/HCPCS: 99201; U0004

== ENCOUNTER → 2020-12-03 14:54 | Outpatient (CLI) | payer OTHER, SELFPAY ==
[2020-12-05 11:34] LABS: Covid-19 Nasal PCR Sendout P&C Negative
== END ==
PROVIDERS: PCP Family Medicine; Visit Provider Nurse Practitioner Family
DX: Z11.52 Encounter for screening for COVID-19 (principal)
CPT/HCPCS: U0004

== ENCOUNTER → 2021-01-11 15:19 | Outpatient (CLI) | payer OTHER, SELFPAY ==
--- NOTE | 2021-01-11 15:21 | MR_ITS ---
PROCEDURE: MR HEAD/BRAIN WO CON CLINICAL INDICATION: ABNORMAL CT OF BRAIN Pt fell and hit head [id number] ago. Abnormal ct scan 06/01/20. Headache. COMPARISON: CT CT HEAD/BRAIN WO CON from 06/01/2020 TECHNIQUE: Routine multiplanar multi echo sequences are performed without gadolinium enhancement. FINDINGS: No midline shift or mass effect is evident. There are a few punctate foci of increased diffusion signal in the right gutierres radiata, left gutierres radiata, and the left parietal cortex at the vertex of the brain. These are nonspecific. At least 1 of these areas in the left gutierres radiata demonstrates some increased and ADC signal suggesting T2 shine through. There is asymmetric area of increased T2 signal within the deep white matter of the left parietal occipital junction posterior to the atrium of the left lateral ventricle within the left occipital lobe. This area measures 2.7 x 1.1 cm and does not demonstrate restricted diffusion. There are other smaller T2 white matter hyperintensities. The corpus callosum has unremarkable appearance. Some of the T2 white matter hyperintensities radiate tangential to the plane of the lateral ventricles best detected on the sagittal images and may represent Winslow's fingers which is described with multiple sclerosis. There is no evidence of hydrocephalus. Asymmetry in the lateral ventricles once again noted not significantly changed and may represent a variation of normal. No evidence of intracranial hemorrhage on the flash hemo images. IMPRESSION: 1. Abnormal MRI of the brain with multiple T2 white matter hyperintensities the most prominent in the left parietal occipital junction. There is also suggestion of Winslow's fingers in the centrum semiovale. Multiple sclerosis is considered. Neurology consult may be in order. 2. Other white matter disease including Lyme disease is not excluded. Ischemic gliotic changes from small vessel disease felt to be less likely in this age group. Migraine headache also consideration but dominant lesion in the left occipital and parietal area not typical for or migraine vasculopathy. Dictated by: Norman De La Rosa MD 01/12/2021 12:14 Norman De La Rosa MD in [place] 01/12/2021 12:14
== END ==
PROVIDERS: PCP Family Medicine; Visit Provider Nurse Practitioner
DX: R90.89 Other abnormal findings on diagnostic imaging of central nervous system (principal)
CPT/HCPCS: 70551

== ENCOUNTER → 2021-01-21 14:29 | Outpatient (CLI) | payer OTHER, SELFPAY ==
[2021-01-27 00:08] LABS: IgG P18 Ab. Absent (.); IgG P23 Ab. Absent (.); IgG P28 Ab. Absent (.); IgG P30 Ab. Absent (.); IgG P39 Ab. Absent (.); IgG P41 Ab. Absent (.); IgG P45 Ab. Absent (.); IgG P58 Ab. Absent (.); IgG P66 Ab. Absent (.); IgG P93 Ab. Absent (.); IgM P23 Ab. Absent (.); IgM P39 Ab. Absent (.); IgM P41 Ab. Absent (.)
[2021-01-27 13:27] LABS: Lyme IgG WB Interp. Negative (.); Lyme IgM WB Interp. Negative (.)
== END ==
PROVIDERS: Visit Provider Nurse Practitioner Family
DX: Z11.9 Encounter for screening for infectious and parasitic diseases, unspecified (principal)
CPT/HCPCS: 36415; 86617

== ENCOUNTER → 2021-01-30 12:02 | Outpatient (CLI) | payer OTHER, SELFPAY ==
[2021-01-30 12:55] LABS: Basophils % 0.4 % (0.1-2.0); Eosinophils # 0.1 K/mm3 (0.0-0.4); Eosinophils % 1.7 % (0.1-12.0); Hematocrit 36.5 % (37.0-47.0); Hemoglobin 11.4 g/dL (12.2-16.2); Lymphocytes # 1.9 K/mm3 (0.7-4.5); Lymphocytes % 26.9 % (10-50); Mean Corpuscular HGB Conc 31.3 g/dL (31.8-35.4); Mean Corpuscular Hemoglobin 28.8 pg (27.0-31.2); Mean Corpuscular Volume 92.1 fl (81-99); Monocytes # 0.3 K/mm3 (0.1-1.0); Monocytes % 3.8 % (1.7-9.3); Neutrophils # 4.8 K/mm3 (1.8-7.8); Neutrophils % 67.1 % (37.0-80.0); Platelet Count 195 K/mm3 (142-424); Red Blood Count 3.96 M/mm3 (4.20-5.40); Red Cell Distribution Width 13.2 % (11.5-17.5); White Blood Count 7.2 K/mm3 (4.8-10.8)
[2021-01-30 13:58] LABS: HCG Qualitative, Serum Negative (Negative)
[2021-01-30 14:03] LABS: Chloride 107 mmol/L (98-107)
[2021-01-30 14:04] LABS: Potassium 4.2 mmoL/L (3.5-5.1); Sodium 142 mmol/L (136-145)
[2021-01-30 14:07] LABS: Anion Gap 10.2 mEq/L (5-15); Blood Urea Nitrogen 13 mg/dl (7-17); Calcium 9.8 mg/dl (8.4-10.2); Carbon Dioxide 29 mmol/L (22.0-30.0); Estimated Glomerular Filt Rate 101 ml/min (>60); GFR (African American) 122 ML/MIN (>60); Glucose 69 mg/dl (74-100)
[2021-01-30 14:59] LABS: Coronavirus 19 IgG Antibody Negative (Negative); Coronavirus 19 IgM Antibody Negative (Negative)
== END ==
PROVIDERS: Visit Provider Nurse Practitioner Obstetrics & Gynecology
DX: Z01.818 Encounter for other preprocedural examination (principal); Z20.822 Contact with and (suspected) exposure to COVID-19; N92.0 Excessive and frequent menstruation with regular cycle; N84.0 Polyp of corpus uteri
CPT/HCPCS: 36415; 80048; 84703; 85025; 86328

== ENCOUNTER 2021-02-01 10:52 | Day surgery (SDC) | payer OTHER, SELFPAY ==
[2021-01-28 10:45] VITALS: BMI 25.1
[2021-02-01] VITALS (10 sets, daily range): BP systolic 82–140; BP diastolic 43–75; PULSE 69–86; RESP 12–18; TEMP 36.4–36.9; O2SAT 96–100
--- NOTE | 2021-02-01 14:05 | P.PN_ITS ---
[facility] Anesthesia Checklist - Patient Identification Patient Identification: Arm Band - Structural Data Admitted From: Home Planned Operative Procedure/s: D/C, hysteroscopy Consent for Planned Operative Procedure(s) Verified: Yes - Additional verifications Anesthesia Reactions: No Hx Blood Transfusions: Yes Blood Transfusion Reaction: No - Airway Assessment C-Spine Mobility Assessed: Yes TMJ Mobility Assessed: Yes Dentition: Good Dentition - Neurological Assessment Level of Consciousness: Awake, Alert, Appropriate Hx Seizures: No Numbness or tingling in extremities: No - Anesthesia Plan Anesthesia Risk discussed: Yes Anesthesia Plan: Verified ASA Class: I Anesthesia Type: General [facility] History I have reviewed the patient's past medical history: Yes Medical History: Reports:: Anxiety, Valvular Heart Disease Denies:: Cancer, Depression, Diabetes Mellitus Type 1, Diabetes Mellitus Type 2, Hypertension, Internal Pacemaker, MRSA, Seizures *Have you ever received a pneumonia vaccine?: No *Have you received a flu vaccine this season?: Yes Other Medical History: Denies: Blood Transfusion Reaction Anesthesia experience/problems:: None Laterality Cases: Bilateral: Tonsillectomy Other Surgeries: Yes: Cholecystectomy, , Diagnostic Lap, Other. No: Pacemaker Amputation: No Fractures: No - *Social History Last grade of school completed: High school graduate Smoking Status: Current every day smoker Tobacco Type: e-cigarettes # Packs/Day (cigarettes): 1 Alcohol Intake: never Alcohol Intake Frequency:: holidays/special occasions only Substance Use Type: denies use *Occupational Status:: employed Housing: house Household Members: spouse, family *Travel in the last 8 weeks: Outside the [facility] - Psychiatric History Pschychiatric History:: Reports:: Anxiety Denies:: Depression Family Hx:: Cancer, Diabetes, Heart Attack, Hyperlipidemia, Hypertension, Stroke, Thyroid Disorder, Asthma, Anemia
--- NOTE | 2021-02-01 14:59 | P.PN_ITS ---
[facility] Anesthesia Record Part I Intake, IV Amount: 800 Estimated blood loss (mL): 25 Urine output (mL): 0 Blood Pressure: 83/43 SaO2: 96 Pulse Rate: 77 Respiratory Rate: 13 Temperature: 97.6 F Patient is:: Awake Stable to PACU at:: 14:56
--- NOTE | 2021-02-01 15:44 | HMH.ANESII ---
[facility] Anesthesia Record Part II Discharge Time: 15:26 Destination: Surgical Day Care (OP Surgery) PACU nurse assessment reviewed?: Yes Patient Condition:: Good Anesthesia Complications:: None Swallowing reflex intact?: Yes Cyanosis?: No Blood Pressure: 100/72 Pulse Rate: 79 Temperature: 98.4 F Mental Status: Alert & Oriented Pain level:: 0 Nausea and/or vomitting:: None Intake, IV Amount: 800
--- NOTE | 2021-02-01 16:14 | P.OP_ITS ---
Date of procedure: 02/01/21 Pre-op Diagnosis:: Menorrhagia possible polyp Post-op Diagnosis:: Menorrhagia Procedure performed:: Hysteroscopy, dilation and curettage Surgeon:: Mike Yang MD ORTHODONTIC LAB TECHNICIAN:: Other Anesthesia: LMA Estimated blood loss (mL): 25 Clinical Note:: She is a 25-year-old lady who was seen in the ER with heavy periods. She was then seen in my office and she thought she had polyp. We did an SIS and it looked like there was indeed a polyp. As result of that she was offered hysteroscopy, D&C with possible polypectomy. Operative findings:: She had a thin endometrium. It appeared that the polyp was indeed just either shedding endometrium or a blood clot. Operative note:: She was taken to the operating room where LMA anesthesia was found to be adequate. She was prepped and draped in the normal sterile fashion in the lithotomy position. A weighted speculum is placed in the vagina and the anterior lip of the cervix was grasped with a tenaculum. I used Mcnair dilators to dilate the cervix to approximately 7 mm. I then inserted a MyoSure scope into the endometrial cavit y. The findings were as previously dictated. I then performed a gentle curettage with a medium curette. We then injected approximately 20 cc of 0.25% ropivacaine at the 5:00 and 7:00 positions of the cervix. She tolerated procedure well and was taken the recovery room in excellent condition. All sponge, instrument and needle counts were correct. The estimated blood loss was less than 25 cc. Condition: stable Disposition: PACU Specimens:: Endometrial curettings. Complications:: None
== END 2021-02-01 16:06 | disposition home or self-care (01) ==
LOC: OR 10:54
PROVIDERS: PCP Family Medicine; Visit Provider Nurse Practitioner Obstetrics & Gynecology
PROC: 0UB98ZZ Excision of Uterus, Via Natural or Artificial Opening Endoscopic (ICD-10-PCS; CPT 58558; principal; 2021-02-01 11:30)
DX: N93.9 Abnormal uterine and vaginal bleeding, unspecified (principal); N92.0 Excessive and frequent menstruation with regular cycle; I51.9 Heart disease, unspecified; F41.9 Anxiety disorder, unspecified; Z72.0 Tobacco use; Z80.9 Family history of malignant neoplasm, unspecified; Z83.3 Family history of diabetes mellitus; Z82.49 Family history of ischemic heart disease and other diseases of the circulatory system; Z82.3 Family history of stroke; Z83.49 Family history of other endocrine, nutritional and metabolic diseases; Z82.5 Family history of asthma and other chronic lower respiratory diseases; Z88.1 Allergy status to other antibiotic agents
CPT/HCPCS: 58563; 96374; J2405

== ENCOUNTER → 2021-02-08 15:43 | Outpatient (CLI) | payer OTHER, SELFPAY ==
--- NOTE | 2021-02-08 15:51 | MR_ITS ---
PROCEDURE: MR CERVICAL SPINE WO/W CON CLINICAL INDICATION: numbness, weakness Bilateral hand numbness and tingling. Questioning MS. COMPARISON: MR MR HEAD/BRAIN WO CON from 01/11/2021 TECHNIQUE: Standard multiplanar multiecho sequences are performed without and with contrast. 3-D MIP and myelographic images are also rendered and reviewed FINDINGS: There is normal alignment. Craniocervical junction has an unremarkable appearance. There is straightening the cervical lordosis which is nonspecific. No disc herniation canal stenosis or significant degenerative change apparent. There is a small subtle focal area of increased T2 signal involving the left aspect of the cervical cord measuring approximately 4 x 3 mm. This does appear to demonstrate some minimal contrast enhancement and is suspicious for an MS plaque. Also suspect a smaller lesion at the C2 level on the right at approximately 4 x 2 mm. No obvious enhancement at this region. No other significant anomalies are evident. IMPRESSION: There are 2 lesions suspected in the cervical cord 1 at the C2 level on the right at 4 x 2 mm and 1 at the C3 level on the left at 4 x 3 mm. These are suspicious for multiple sclerosis plaques. Please correlate with clinical findings. Dictated by: Norman De La Rosa MD 02/10/2021 07:47 Norman De La Rosa MD in [facility] 02/10/2021 07:47
== END ==
PROVIDERS: PCP Family Medicine; Visit Provider Specialist
DX: R90.89 Other abnormal findings on diagnostic imaging of central nervous system (principal); R20.0 Anesthesia of skin; R20.2 Paresthesia of skin
CPT/HCPCS: 72156; 76376; A9576

== ENCOUNTER 2021-02-10 10:06 | Day surgery (SDC) | payer OTHER, SELFPAY ==
[2021-02-10 10:22] VITALS: BP 106/49; PULSE 104; RESP 20; O2SAT 98; BMI 24.8
[2021-02-10 10:30] VITALS: RESP 20
[2021-02-10 11:21] LABS: Alanine Aminotransferase 14 U/L (12-78); Albumin Level 4.6 g/dl (3.5-5.0); Albumin/Globulin Ratio 1.8 (1.1-1.8); Alkaline Phosphatase 50 U/L (38-126); Anion Gap 15.2 mEq/L (5-15); Aspartate Amino Transferase 25 U/L (14-36); Bilirubin,Total 0.4 mg/dl (0.2-1.3); Blood Urea Nitrogen 12 mg/dl (7-17); Calcium 9.9 mg/dl (8.4-10.2); Carbon Dioxide 21 mmol/L (22.0-30.0); Chloride 107 mmol/L (98-107); Creatinine Clearance Estimated 100 mL/min (50-200); Estimated Glomerular Filt Rate 101 ml/min (>60); GFR (African American) 122 ML/MIN (>60); Globulin 2.6 g/dL (1.3-3.2); Glucose 74 mg/dl (74-100); Potassium 4.2 mmoL/L (3.5-5.1); Sodium 139 mmol/L (136-145); Total Protein,Serum 7.2 g/dl (6.3-8.2)
--- NOTE | 2021-02-10 11:26 | PC.NURSE ---
1120-pt assisted to bathroom, gait steady. BP 102/66, HR 78, RR 20.
--- NOTE | 2021-02-10 11:51 | PC.NURSE ---
PT RESTING COMFORTABLY. WATER AND WARM BLANKETS GIVEN. SISTER REMAINS AT SIDE, NO C/O VOICED. RR 20, EVEN AND UNLABORED.
[2021-02-10 12:27] LABS: Vitamin B12 258 pg/mL (239-931)
[2021-02-10 12:29] LABS: Folate 6.83 ng/mL
[2021-02-10 13:00] VITALS: BP 104/65; PULSE 79; RESP 18; O2SAT 98
--- NOTE | 2021-02-10 13:50 | PC.NURSE ---
1340-Failed IV attempt x1 by this technical proposal writer. 1345-#22 IV initiated to right AC by Ann-MarieRN x1 attempt. 1348-IVF initiated per md order. pt sitting in chair. no complaints at this time. pt lunch tray set up, no other needs or concerns at this time.
--- NOTE | 2021-02-10 13:52 | HMH.PMPROC ---
- Procedure Date: 02/10/21 Time: 13:52 Anesthesiologist:: Abiodun Schofield MD Complications:: None Pre-procedure Diagnosis:: Abnormal MRI of the brain with some unsteadiness and neurological symptoms in the upper and lower extremities Post-procedure Diagnosis:: Same Indications for Procedure:: This patient is a pleasant 25-year-old white female who is referred by Dr. Suggs for a lumbar puncture to obtain opening and closing pressures and CSF to be sent for indicated studies with an abnormal MRI of the brain with some unsteadiness of her gait and neurological symptoms of the upper and lower extremities. Procedure Details:: Lumbar puncture under fluoroscopy Informed consent was obtained and the risk and benefits of the procedure were explained to the patient. Patient was taken the procedure room. The patient was placed in a left lateral decubitus position. C-arm fluoroscopy was used to view the lumbar spine. The skin and subcutaneous tissues were anesthetized using lidocaine. A 20-gauge spinal needle was inserted and advanced into the L4-5 interspace until clear CSF was obtained. After this opening pressures were taken and found to be 13 cm of water. We then filled 4 tubes with each 1 being approximately 2 to 3 mL of clear CSF. We were able to withdraw approximately 12 to 15 mL of clear CSF placed into the 4 tubes. Closing pressures were found to be 5 cm of water. The needle was withdrawn. A Band-Aid was placed. Patient tolerated procedure well with no complications. Plan and Disposition:: CSF will be sent for indicated studies ordered by Dr. Bañuelos. We will follow-up with this patient as needed. She was given conservative therapy for prevention of a post dural puncture headache. We will also give her 1 L of IV fluids while she is here as she did have a low blood pressure.
--- NOTE | 2021-02-10 14:01 | PC.NURSE ---
pt resting in chair, eating lunch. IV infusing without difficulty. family at bedside, pt without needs or concerns at this time
--- NOTE | 2021-02-10 14:09 | PC.NURSE ---
pt sitting in chair, family at bedside. BP 84/50, pt denies s/s hypotension. no needs or concerns at this time.
[2021-02-10 14:15] LABS: Glucose,CSF 45 mg/dl (40-70)
--- NOTE | 2021-02-10 14:25 | PC.NURSE ---
pt resting in chair. family at bedside. BP 97/54, HR 79. IVF infusing without difficulty. no needs or concerns verbalized at this time.
[2021-02-10 14:43] VITALS: BP 91/57; PULSE 77; RESP 20; O2SAT 98
--- NOTE | 2021-02-10 14:45 | PC.NURSE ---
850ml of IVF intake
[2021-02-10 15:04] LABS: Appearance,CSF Clear (Clear)
[2021-02-10 15:08] LABS: Red Blood Cell,CSF 0 cells/uL (0); Volume,CSF 14.5 mL; White Blood Cell,CSF 4 cells/uL (0-5)
[2021-02-10 15:09] LABS: Appearance,CSF Clear (Clear); Red Blood Cell,CSF 1 cells/uL (0); Volume,CSF 14.5 mL; White Blood Cell,CSF 3 cells/uL (0-5)
[2021-02-10 15:16] VITALS: BP 80/54; PULSE 82; RESP 18; O2SAT 98
[2021-02-10 17:41] LABS: Mononuclear WBCs,CSF 100 %; Polynuclear WBCs,CSF 0 %
[2021-02-10 17:48] LABS: Mononuclear WBCs,CSF 100 %; Polynuclear WBCs,CSF 0 %
[2021-02-12 15:44] LABS: Cryptococcus Antigen, CSF Negative (Negative)
[2021-02-12 16:50] LABS: Albumin 4.7 g/dL (3.9-5.0); Albumin, CSF 22 mg/dL (11-48); IgG, Syn Rate, CSF 5.6 mg/day (-9.9 TO +3.3); IgG/Albumin Ratio, CSF 0.14 (0.00-0.25); Immunoglobulin G, Qn, Serum 656 mg/dL (586-1602)
[2021-02-12 18:04] LABS: CAP Mandated Reflex to Culture Not Indicated (.); CSF/Serum Alb. Index 5 (0-8)
[2021-02-13 04:32] LABS: VDRL, Cerebrospinal Fluid Non Reactive (Non Rea:<1:1)
[2021-02-13 12:10] LABS: Antinuclear Antibodies (ANA) NEGATIVE
[2021-02-17 18:03] LABS: CSF Lyme (B. burgdorferi) PCR Negative (Negative)
== END 2021-02-10 14:44 | disposition home or self-care (01) ==
LOC: SC.PAINP 10:09
PROVIDERS: Specialist; PCP Family Medicine; Visit Provider Anesthesiology
DX: R90.89 Other abnormal findings on diagnostic imaging of central nervous system (principal); R20.0 Anesthesia of skin; R20.2 Paresthesia of skin; G43.909 Migraine, unspecified, not intractable, without status migrainosus; F41.9 Anxiety disorder, unspecified; D64.9 Anemia, unspecified; Z88.1 Allergy status to other antibiotic agents; Z88.6 Allergy status to analgesic agent; Z91.040 Latex allergy status
CPT/HCPCS: 36415; 62329; 80053; 82040; 82042; 82607; 82746; 82784; 82945; 83916; 84155; 86038; 86225; 86235; 86592; 86618; 87070; 87102; 87116; 87186; 87205; 87206; 87476; 87899; 89051; 96365

== ENCOUNTER → 2021-02-15 12:50 | Outpatient (POV) | payer OTHER, SELFPAY ==
[2021-02-15 13:09] VITALS: BP 117/67; PULSE 101; RESP 20; TEMP 36.6; O2SAT 98; BMI 24.8
--- NOTE | 2021-02-15 13:14 | HMH.PAINSOAP ---
[facility] Pain Management SOAP Note Subjective:: Patient is a pleasant 25-year-old white female who presents today for follow-up. Patient had a lumbar puncture done back on the . Since then she states she is had a spinal headache. She has pain only when she is standing and sitting up. When she is laying down she has no pain. Patient and I discussed options including IV fluids along with blood patch. Patient would like to proceed with a blood patch. We will contact anesthesia. ROS General: no recent weight change, no fever, no sleep disturbances Respiratory: no cough, no shortness of air, no recurring pulmonary infections Cardiovascular/Peripheral Vascular: No chest pain, No palpitations, no edema, no shortness of breath. Gastrointestinal: no new onset incontinence, normal bowel movements reported Genitourinary: no new onset incontinence Musculoskeletal: Headache Psychiatric: normal mood/ affect, [denies depression], [denies anxiety] Neurological: [denies new onset weakness in extremities], [denies new onset balance issues] Objective:: Physical Exam General: Alert and oriented x3, no acute distress, pleasant and cooperative, [on room air] Lungs: Resps E/U, Symmetrical chest expansion, Eyes: PERRL Musculoskeletal: Flexion and extension of cervical spine somewhat guarded secondary to pain, deep tendon reflexes normal, strength in upper and lower extremities [5/5], slightly antalgic gait noted Neurological: speech clear, main galley scullion equal, no gross sensory deficits Assessment:: Post dural puncture headache Plan:: We will have anesthesia come and evaluate her for potential blood patch. We will move forward with any recommendations. Dr. Schofield has reviewed this note and agrees with this plan of care. This note was dictated using voice recognition software and may contain errors or omissions [facility] History I have reviewed the patient's past medical history: Yes Medical History: Reports:: Anxiety, Migraine, Valvular Heart Disease Denies:: Cancer, Depression, Diabetes Mellitus Type 1, Diabetes Mellitus Type 2, Hypertension, Internal Pacemaker, MRSA, Seizures *Have you ever received a pneumonia vaccine?: No *Have you received a flu vaccine this season?: No Other Medical History: Reports: Anemia. Denies: Blood Transfusion Reaction Laterality Cases: Bilateral: Tonsillectomy Other Surgeries: Yes: Cholecystectomy, , Dilation and Curettage, Diagnostic Lap, Other (D&C). No: Pacemaker Amputation: No Fractures: No - *Social History Smoking Status: Current every day smoker Tobacco Type: e-cigarettes # Packs/Day (cigarettes): 1 Alcohol Intake: never Alcohol Intake Frequency:: holidays/special occasions only Substance Use Type: denies use *Occupational Status:: other Housing: house Household Members: other *Travel in the last 8 weeks: None - Psychiatric History Pschychiatric History:: Reports:: Anxiety Denies:: Depression Family Hx:: Cancer, Diabetes, Heart Attack, Hyperlipidemia, Hypertension, Stroke, Thyroid Disorder, Asthma, Anemia
== END ==
PROVIDERS: PCP Family Medicine; Visit Provider Clinical Nurse Specialist Family Health
DX: G97.1 Other reaction to spinal and lumbar puncture (principal); G44.89 Other headache syndrome
CPT/HCPCS: 99212; G0463

== ENCOUNTER 2021-03-10 11:11 | Emergency (ER) | payer OTHER, SELFPAY ==
[2021-03-10 11:12] VITALS: BP 114/71; PULSE 98; RESP 16; TEMP 36.6; O2SAT 96; BMI 24.8
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
--- NOTE | 2021-03-10 12:55 | PC.NURSE ---
MD at bedside updating pt on plan of care and results.
[2021-03-10 13:02] VITALS: BP 132/74; PULSE 88; RESP 16; TEMP 36.6; O2SAT 98
== END 2021-03-10 13:03 | disposition home or self-care (01) ==
PROVIDERS: Emergency Provider Emergency Medicine; PCP Family Medicine
DX: M54.2 Cervicalgia (principal); V43.52XA Car driver injured in collision with other type car in traffic accident, initial encounter; Y92.488 Other paved roadways as the place of occurrence of the external cause
CPT/HCPCS: 99282

== ENCOUNTER → 2021-04-29 13:33 | Outpatient (CLI) | payer OTHER, SELFPAY | PROVIDERS: PCP Nurse Practitioner Family; Visit Provider Nurse Practitioner Family | DX: Z20.822 Contact with and (suspected) exposure to COVID-19 (principal) | CPT/HCPCS: U0003 ==

== ENCOUNTER → 2021-10-27 12:36 | Outpatient (CLI) | payer OTHER, SELFPAY ==
[2021-10-27 16:24] LABS: HCG,Quantitative < 2 mIU/ml (0-5.42)
== END ==
PROVIDERS: Visit Provider Nurse Practitioner Obstetrics & Gynecology
DX: N92.6 Irregular menstruation, unspecified (principal)
CPT/HCPCS: 84702

== ENCOUNTER 2021-12-02 10:00 | Emergency (ER) | payer OTHER, SELFPAY ==
[2021-12-02 11:25] VITALS: BP 106/66; PULSE 77; RESP 18; TEMP 36.9; O2SAT 100; BMI 23.2
[2021-12-02 11:55] LABS: UTC Strep Screen (Rapid) Negative (Negative)
--- NOTE | 2021-12-02 12:05 | HMH.EDUTC ---
[facility] [place] Disposition Clinical Impression: Viral syndrome Disposition: Home, Self-Care Condition on Discharge: Good Instructions: DI for Viral Upper Respiratory Infection -- Adult, DI for COVID-19 (Suspected or Confirmed ) Additional Instructions: *Monitor Temp, Over the counter Motrin or Tylenol as directed/as needed Tylenol every 4 hours and Motrin every 6 hours (as long as your family doctor has told you that you can take it) for fever or pain. and straight to ER if unable to lower temp less than 101.0 after medication given *Warm salt water gargles may help to soothe the throat *Throat Lozenges *Warm fluids like tea with honey may help to soothe the throat *Sleep elevated *Humidifier/Vaporizer Your throat swab was sent for culture. Those results are typically sent to your primary care. Be sure to follow up in 2-3 days with your family doctor/primary care physician if no improvement so they can review those result and treat if necessary. If you don?t have a primary care doctor, I recommend you get one but in the mean time, you will have to return to a walk in clinic Follow up IMMEDIATELY for new or worsening symptoms or no Noticeable improvement over the next 48-72 hours. 911 for difficulty breathing or swallowing You were tested for today for COVID19 your test result should be back in the next 24-48 hours, you may check your results on the [facility] My Health Portal if you have trouble logging on you can call support or you will get a call if your results are Positive You was given a handout with instructions for Self Quarantine and Self isolation for while you wait on test results and what to do if they are positive If you are positive the Health Dept will be contacting you also Make sure to take your Vitamins Vit. C Vit D and Zinc if you can take them Referrals: Leon Brown MD [Primary Care Provider] - As needed Forms: Work/School Release Medical Decision Making - Kamari Inquiry Pt receiving controlled substance: No Kamari was queried for this patient: No Vital Signs: 12/02/21 11:25 Temperature 98.4 F Temperature Source Oral Pulse Rate [Right Brachial] 77 Respiratory Rate 18 Blood Pressure [Right Arm] 106/66 L Blood Pressure Mean [Right Arm] 79 Blood Pressure Source [Right Arm] Automatic Cuff Blood Pressure Position [Right Arm] Sitting 02 Sat by Pulse Oximetry 100 Oxygen Delivery Method Room Air - Lab Data Lab results reviewed: Yes: I reviewed the patient's lab results. Lab Results 12/02/21 11:49: Strep Scn Rapid Clinic Negative Orders (Tests/Meds): ORDERS Category Date Time Status Covid-19 Nasal PCR ([facility]) Routine Lab 12/02/21 11:49 Received Strep Screen Confirmation Stat Micro 12/02/21 11:49 Received [facility] UTC HPI - General Stated complaint: sore throat,cough,runny nose,headache Time Seen by Provider: 12/02/21 12:05 Mode of Arrival: Ambulatory Source of Information: Patient Limitations: No Limitations Description of Symptoms (Recalled from Triage Doc. by RN): PATIENT C/O SORE THROAT, RUNNY NOSE, HEADACHE, AND FEVER. RECENTLY EXPOSED TO COVID HEENT Symptoms (Recalled from RN notes): Yes Resp Symptoms (Recalled from RN notes): No Skin Symptoms (Recalled from RN notes): No MS Symptoms (Recalled from RN notes): No Functional Status (Recalled from RN notes): WNL - History of Present Illness Provider Complaint: Pt states that she has been having runny nose, sore throat and low grade fever State that sister recently tested positive for COVID but she hasnt been around in about a week but wanted to get tested - Related Data Allergies Allergy/AdvReac Type Severity Reaction Status Date / Time azithromycin [From Zithromax] Allergy Intermediate I-RASH Verified 02/15/21 16:45 cefixime [From Suprax] Allergy Unknown ITCHING,HIV Verified 02/15/21 16:45 ES latex Allergy Unknown VOMITING,SW Verified 02/15/21 16:45 ELLING tramadol Allergy Unknown I-RASH,HEAD Verified 02/15/21 16:45
[2021-12-02 12:10] VITALS: BP 106/66; PULSE 77; RESP 18; TEMP 36.9; O2SAT 100
== END 2021-12-02 12:13 | disposition home or self-care (01) ==
PROVIDERS: Emergency Provider Nurse Practitioner; PCP Family Medicine
DX: B34.9 Viral infection, unspecified (principal); Z20.822 Contact with and (suspected) exposure to COVID-19; F41.9 Anxiety disorder, unspecified; F17.210 Nicotine dependence, cigarettes, uncomplicated
CPT/HCPCS: 87880; 99203; C9803; G0463; U0003; U0005

== ENCOUNTER → 2021-12-28 12:16 | Outpatient (CLI) | payer OTHER, SELFPAY ==
[2021-12-29 08:24] LABS: Covid-19 Nasal PCR Sendout Lex POSITIVE
== END ==
PROVIDERS: PCP Family Medicine; Visit Provider Nurse Practitioner
DX: U07.1 COVID-19 (principal)
CPT/HCPCS: C9803; U0004; U0005

== ENCOUNTER → 2022-01-24 10:40 | Outpatient (CLI) | payer OTHER, SELFPAY ==
[2022-01-24 11:20] LABS: Basophils # 0.1 K/mm3 (0-0.2); Basophils % 0.8 % (0.1-2.0); Eosinophils # 0.1 K/mm3 (0.0-0.4); Eosinophils % 1.5 % (0.1-12.0); Hematocrit 36.1 % (37.0-47.0); Hemoglobin 11.2 g/dL (12.2-16.2); Lymphocytes # 1.8 K/mm3 (0.7-4.5); Lymphocytes % 24.7 % (10-50); Mean Corpuscular Hemoglobin 25.9 pg (27.0-31.2); Mean Corpuscular Volume 83.5 fl (81-99); Mean Platelet Volume 10.5 fl (7.4-10.4); Monocytes # 0.4 K/mm3 (0.1-1.0); Monocytes % 5.7 % (1.7-9.3); Neutrophils # 4.8 K/mm3 (1.8-7.8); Neutrophils % 67.3 % (37.0-80.0); Platelet Count 200 K/mm3 (142-424); Red Blood Count 4.32 M/mm3 (4.20-5.40); Red Cell Distribution Width 16.5 % (11.5-17.5); White Blood Count 7.2 K/mm3 (4.8-10.8)
[2022-01-24 12:04] LABS: Alanine Aminotransferase 16 U/L (12-78); Albumin Level 4.2 g/dl (3.5-5.0); Albumin/Globulin Ratio 1.9 (1.1-1.8); Alkaline Phosphatase 41 U/L (38-126); Aspartate Amino Transferase 21 U/L (14-36); Bilirubin,Total 0.2 mg/dl (0.2-1.3); Blood Urea Nitrogen 8 mg/dl (7-17); Calcium 8.9 mg/dl (8.4-10.2); Carbon Dioxide 24 mmol/L (22.0-30.0); Chloride 107 mmol/L (98-107); Estimated Glomerular Filt Rate 100 ml/min (>60); GFR (African American) 121 ML/MIN (>60); Globulin 2.2 g/dL (1.3-3.2); Glucose 89 mg/dl (74-100); Sodium 137 mmol/L (136-145); Total Protein,Serum 6.4 g/dl (6.3-8.2)
[2022-01-24 12:35] LABS: Thyroid Stimulating Hormone 1.06 uIU/mL (0.465-4.68)
[2022-01-24 19:12] LABS: Anion Gap 10.4 mEq/L (5-15); Potassium 4.4 mmoL/L (3.5-5.1)
[2022-02-20 21:28] LABS: Antinuclear Antibodies (ANA) Negative
== END ==
PROVIDERS: PCP Nurse Practitioner Family; Visit Provider Nurse Practitioner Family
DX: R00.0 Tachycardia, unspecified (principal); L30.9 Dermatitis, unspecified
CPT/HCPCS: 36415; 80053; 84443; 85025; 86038; 93225; 93226

== ENCOUNTER 2022-02-10 08:59 | Emergency (ER) | payer OTHER, SELFPAY ==
[2022-02-10 09:05] VITALS: BP 117/66; PULSE 96; RESP 18; TEMP 36.8; O2SAT 100; BMI 26.3
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
[2022-02-10 09:42] VITALS: BP 117/66; PULSE 96; RESP 18; TEMP 36.8; O2SAT 100
== END 2022-02-10 09:46 | disposition home or self-care (01) ==
PROVIDERS: Emergency Provider Nurse Practitioner; PCP Nurse Practitioner Family
DX: T22.019A Burn of unspecified degree of unspecified forearm, initial encounter (principal); D64.9 Anemia, unspecified; G43.909 Migraine, unspecified, not intractable, without status migrainosus; F41.9 Anxiety disorder, unspecified; F17.210 Nicotine dependence, cigarettes, uncomplicated; Z88.1 Allergy status to other antibiotic agents; Z88.8 Allergy status to other drugs, medicaments and biological substances; Z88.6 Allergy status to analgesic agent; Z91.040 Latex allergy status; Z82.49 Family history of ischemic heart disease and other diseases of the circulatory system; Z83.3 Family history of diabetes mellitus; Z80.9 Family history of malignant neoplasm, unspecified; Z83.438 Family history of other disorder of lipoprotein metabolism and other lipidemia; Z82.5 Family history of asthma and other chronic lower respiratory diseases; Z83.2 Family history of diseases of the blood and blood-forming organs and certain disorders involving the immune mechanism
CPT/HCPCS: 99213; G0463

== ENCOUNTER → 2022-02-28 15:30 | Outpatient (CLI) | payer OTHER, SELFPAY ==
[2022-02-28 16:27] LABS: HCG,Quantitative 1309 mIU/ml (0-5.42)
== END ==
PROVIDERS: Visit Provider Nurse Practitioner Obstetrics & Gynecology
DX: N92.6 Irregular menstruation, unspecified (principal)
CPT/HCPCS: 36415; 84702

== ENCOUNTER 2022-03-04 09:03 | Emergency (ER) | payer OTHER, SELFPAY ==
[2022-03-04 09:04] VITALS: BP 128/88; PULSE 94; RESP 16; TEMP 36.8; O2SAT 98; BMI 25.9
[2022-03-04 09:17] LABS: Microscopic, Urine URINE MICROSCOPIC (MICROSCOPIC)
[2022-03-04 09:21] LABS: Appearance,Urine CLEAR (Clear); Bilirubin,Urine Negative (Negative); Blood, Urine Negative (Negative); Color,Urine YELLOW (Yellow); Glucose,Urine (UA) Negative (Negative); Ketones,Urine Negative (Negative); Leukocyte Esterase,Urine Negative (Negative); Nitrate,Urine Negative (Negative); Protein,Urine Negative (Negative); Urobilinogen,Urine 0.2 EU/dl (0.2)
[2022-03-04 09:24] LABS: Urine Pregnancy, HCG Qual. Positive (Negative)
[2022-03-04 09:34] LABS: Bacteria,Urine Trace /lpf; WBC,Urine Occasional #/hpf (0-3)
[2022-03-04 09:37] LABS: Chloride 107 mmol/L (98-107); Potassium 3.8 mmoL/L (3.5-5.1); Sodium 139 mmol/L (136-145)
[2022-03-04 09:39] LABS: Alanine Aminotransferase 16 U/L (12-78); Aspartate Amino Transferase 35 U/L (14-36); Blood Urea Nitrogen 8 mg/dl (7-17); Creatinine Clearance Estimated 121 mL/min (50-200); Estimated Glomerular Filt Rate 120 ml/min (>60); GFR (African American) 145 ML/MIN (>60)
[2022-03-04 09:40] LABS: Albumin Level 4.5 g/dl (3.5-5.0); Albumin/Globulin Ratio 1.8 (1.1-1.8); Alkaline Phosphatase 44 U/L (38-126); Anion Gap 11.8 mEq/L (5-15); Basophils # 0.1 K/mm3 (0-0.2); Basophils % 1.2 % (0.1-2.0); Bilirubin,Total 0.5 mg/dl (0.2-1.3); Calcium 8.9 mg/dl (8.4-10.2); Carbon Dioxide 24 mmol/L (22.0-30.0); Eosinophils # 0.1 K/mm3 (0.0-0.4); Eosinophils % 1.2 % (0.1-12.0); Globulin 2.5 g/dL (1.3-3.2); Glucose 94 mg/dl (74-100); Hematocrit 34.4 % (37.0-47.0); Hemoglobin 11.1 g/dL (12.2-16.2); Lipase 134 U/L (23-300); Lymphocytes # 1.4 K/mm3 (0.7-4.5); Lymphocytes % 25.2 % (10-50); Mean Corpuscular HGB Conc 32.2 g/dL (31.8-35.4); Mean Corpuscular Hemoglobin 25.8 pg (27.0-31.2); Mean Corpuscular Volume 80.3 fl (81-99); Mean Platelet Volume 10.2 fl (7.4-10.4); Monocytes # 0.3 K/mm3 (0.1-1.0); Monocytes % 5.9 % (1.7-9.3); Neutrophils # 3.6 K/mm3 (1.8-7.8); Neutrophils % 66.6 % (37.0-80.0); Platelet Count 191 K/mm3 (142-424); Red Blood Count 4.28 M/mm3 (4.20-5.40); Red Cell Distribution Width 15.6 % (11.5-17.5); White Blood Count 5.5 K/mm3 (4.8-10.8)
[2022-03-04 09:57] LABS: HCG,Quantitative 7222 mIU/ml (0-5.42)
--- NOTE | 2022-03-04 10:23 | US_ITS ---
FINAL REPORT CLINICAL HISTORY: cramping with positive HCG FINDINGS: Sonographic images of the pelvis were obtained. There is a well-circumscribed anechoic structure in the inferior myometrial cavity measuring 6 mm. No pole or yolk sac is identified, may represent early gestational sac. The ovaries are unremarkable. IMPRESSION: Well-circumscribed anechoic structure in the myometrial cavity thought likely to represent early gestational sac. Recommend follow-up ultrasound and quantitative beta HCG. Reviewed, Interpreted and Dictated by Bobby Gonzalez MD Transcribed by Kacy Laboy Authenticated by Bobby Gonzalez MD on 03/04/2022 11:58:45 AM [facility]
--- NOTE | 2022-03-04 10:39 | PC.NURSE ---
Pt gone up to rad for US
--- NOTE | 2022-03-04 11:00 | PC.NURSE ---
PT returned from US.
--- NOTE | 2022-03-04 11:11 | HMH.EDABDPAI ---
ED Disposition Clinical Impression: Abdominal pain affecting Disposition: Home, Self-Care Condition on Discharge: Good Instructions: DI for Acute Abdominal Pain Referrals: Millicent Mayer APRN [Primary Care Provider] - - Critical Care Critical Care Time: No Attestation: On 03/04/22, the high probability of a clinically significant, sudden or life threatening deterioration of the following system(s) required my full and direct attention, intervention and personal management. The time I documented below is in addition to time spent performing reported procedures but includes the following listed in this critical care notation. Medical Decision Making - Medical Records Medical records reviewed: Yes: I reviewed the patient's medical records. - Kamari Inquiry Pt receiving controlled substance: No Vital Signs: 03/04/22 09:04 Temperature 98.2 F Temperature Source Oral Pulse Rate [Radial] 94 H Respiratory Rate 16 Blood Pressure [Right Arm] 128/88 Blood Pressure Mean [Right Arm] 101 Blood Pressure Position [Right Arm] Sitting 02 Sat by Pulse Oximetry 98 Oxygen Delivery Method Room Air - Lab Data Lab Results 03/04/22 09:07: Urine Color Yellow, Urine Appearance Clear, Urine pH 7.0, Ur Specific [place] 1.010, Urine Protein Negative, Urine Glucose (UA) Negative, Urine Ketones Negative, Urine Blood Negative, Urine Nitrate Negative, Urine Bilirubin Negative, Urine Urobilinogen 0.2, Ur Leukocyte Esterase Negative, Urine WBC Occasional, Ur Squamous Epith Cells 3-5, Urine Bacteria Trace 03/04/22 09:07: Urine HCG, Qual Positive 03/04/22 09:23: WBC 5.5, RBC 4.28, Hgb 11.1 L, Hct 34.4 L, MCV 80.3 L, MCH 25.8 L, MCHC 32.2, RDW 15.6, Plt Count 191, MPV 10.2, Neut % (Auto) 66.6, Lymph % (Auto) 25.2, [place] % (Auto) 5.9, Eos % (Auto) 1.2, Baso % (Auto) 1.2, Neut # (Auto) 3.6, Lymph # (Auto) 1.4, [place] # (Auto) 0.3, Eos # (Auto) 0.1, Baso # (Auto) 0.1 03/04/22 09:23: Sodium 139, Potassium 3.8, Chloride 107, Carbon Dioxide 24, Anion Gap 11.8, BUN 8, Creatinine 0.60, Estimated Creat Clear 121, Estimated GFR 120, Est GFR ( Amer) 145, Glucose 94, Calcium 8.9, Total Bilirubin 0.5, AST 35, ALT 16, Alkaline Phosphatase 44, Total Protein 7.0, Albumin 4.5, Globulin 2.5, Albumin/Globulin Ratio 1.8 03/04/22 09:23: Lipase 134, HCG, Quant 7222 H Result diagrams: 03/04/22 09:23 03/04/22 09:23 Orders (Tests/Meds): ED MEDICATIONS Generic Name Dose Route Start Last Admin Trade Name Freq PRN Reason Stop Dose Admin Sodium Chloride 10 ml 03/04/22 09:25 Sodium Chloride 0.9% 10ml Flush Syringe IV 04/03/22 09:24 NEEDED PRN Maintain IV Site Discontinued Medications Generic Name Dose Route Start Last Admin Trade Name Freq PRN Reason Stop Dose Admin Sodium Chloride 1,000 mls @ 999 mls/hr 03/04/22 09:15 03/04/22 09:26 Sod Chlor 0.9% 1000ml Bag IV 03/04/22 10:15 999 mls/hr .[id number] Administration ORDERS Category Date Time Status US OB <= 14 weeks fetus Stat Exams 03/04/22 10:23 Taken - US Data US Images: Other (Transvaginal) ED US Reviewed: Yes: I have reviewed the patient's US results, I discussed the US results w/the radiologist Findings Narrative: Empty gestational sac. Appropriate ovaries. Findings consistent with very early - Reevaluation(s) Time: 11:15 Reevaluation #1: On reevaluation, the patient is feeling much better. Her hCG has been increasing appropriately. Ultrasound was inconclusive, however likely represents early . However there is always concern for an ectopic or miscarriage. 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 Given strict return precautions for any change symptoms. Verbalized understanding. Medical Decision Narrative: 26-year-old female presented to the emergency department with some abdominal cramping. I do believe her symptoms are c
[2022-03-04 11:36] VITALS: BP 115/74; PULSE 78; RESP 16; TEMP 36.6; O2SAT 98
== END 2022-03-04 11:37 | disposition home or self-care (01) ==
PROVIDERS: Emergency Provider Emergency Medicine; PCP Nurse Practitioner Family
DX: O26.891 Other specified pregnancy related conditions, first trimester (principal); R10.84 Generalized abdominal pain; F41.9 Anxiety disorder, unspecified; G43.709 Chronic migraine without aura, not intractable, without status migrainosus; F17.290 Nicotine dependence, other tobacco product, uncomplicated
CPT/HCPCS: 76801; 80053; 81001; 81025; 83690; 84702; 85025; 96360; 96365; 99284

== ENCOUNTER → 2022-03-07 09:25 | Outpatient (CLI) | payer OTHER, SELFPAY ==
[2022-03-07 11:42] LABS: HCG,Quantitative 19903 mIU/ml (0-5.42)
== END ==
PROVIDERS: Visit Provider Nurse Practitioner Obstetrics & Gynecology
DX: Z34.90 Encounter for supervision of normal pregnancy, unspecified, unspecified trimester (principal)
CPT/HCPCS: 36415; 84702

== ENCOUNTER → 2022-03-09 12:08 | Outpatient (CLI) | payer OTHER, SELFPAY ==
[2022-03-09 15:26] LABS: HCG,Quantitative 33898 mIU/ml (0-5.42)
== END ==
PROVIDERS: Visit Provider Obstetrics & Gynecology
DX: Z34.90 Encounter for supervision of normal pregnancy, unspecified, unspecified trimester (principal)
CPT/HCPCS: 36415; 84702

== ENCOUNTER → 2022-03-11 13:09 | Outpatient (CLI) | payer OTHER, SELFPAY ==
--- NOTE | 2022-03-11 13:10 | US_ITS ---
FINAL REPORT CLINICAL HISTORY: spotting with early , Dates, viability FINDINGS: Sonographic images of the pelvis were obtained. A single, living intrauterine is noted. A yolk sac is present and measures 0.43 cm. [place] to rump length measures 0.25 cm which corresponds to 5 weeks 6 days gestation. Heartbeat is identified and measures 102 beats per minute. There is a 2 cm probable corpus luteum cyst in the right ovary. The left ovary is within normal limits. IMPRESSION: Single, living, intrauterine gestation with 5 weeks 6 days ultrasound age. Reviewed, Interpreted and Dictated by Dionisio Poon III, MD Transcribed by Guerline Ernst Authenticated by Dionisio Poon III, MD on 03/11/2022 03:15:04 PM [facility]
== END ==
PROVIDERS: PCP Nurse Practitioner Family; Visit Provider Obstetrics & Gynecology
DX: Z34.90 Encounter for supervision of normal pregnancy, unspecified, unspecified trimester (principal)
CPT/HCPCS: 76801

== ENCOUNTER → 2022-03-17 08:54 | Outpatient (CLI) | payer OTHER, SELFPAY ==
[2022-03-17 10:54] LABS: Basophils % 0.3 % (0.1-2.0); Eosinophils # 0.1 K/mm3 (0.0-0.4); Eosinophils % 0.7 % (0.1-12.0); Hematocrit 35.5 % (37.0-47.0); Hemoglobin 10.8 g/dL (12.2-16.2); Lymphocytes # 1.5 K/mm3 (0.7-4.5); Lymphocytes % 20.3 % (10-50); Mean Corpuscular HGB Conc 30.4 g/dL (31.8-35.4); Mean Corpuscular Volume 82.1 fl (81-99); Mean Platelet Volume 10.4 fl (7.4-10.4); Monocytes # 0.4 K/mm3 (0.1-1.0); Monocytes % 5.3 % (1.7-9.3); Neutrophils # 5.5 K/mm3 (1.8-7.8); Neutrophils % 73.3 % (37.0-80.0); Platelet Count 169 K/mm3 (142-424); Red Blood Count 4.33 M/mm3 (4.20-5.40); Red Cell Distribution Width 14.7 % (11.5-17.5); White Blood Count 7.5 K/mm3 (4.8-10.8)
[2022-03-18 07:08] LABS: HIV Screen 4th Generation wRfx Non Reactive (Non Reactive)
[2022-03-18 08:17] LABS: Hepatitis B Surface Antigen Negative (Negative); Hepatitis C Antibody <0.1 s/co ratio (0.0-0.9); Rubella Antibodies, IgG 1.52 index (Immune >0.99)
[2022-03-18 13:43] LABS: Rapid Plasma Reagin Ab Titer Non Reactive (NonRea<1:1)
== END ==
PROVIDERS: Visit Provider Obstetrics & Gynecology
DX: Z34.90 Encounter for supervision of normal pregnancy, unspecified, unspecified trimester (principal)
CPT/HCPCS: 36415; 85025; 86592; 86703; 86762; 86850; 86870; 87340; 87380; G0432

== ENCOUNTER 2022-03-24 20:18 | Emergency (ER) | payer OTHER, SELFPAY ==
[2022-03-24 20:19] VITALS: BP 103/55; PULSE 107; RESP 18; TEMP 37.2; O2SAT 100; BMI 25.9
[2022-03-24 20:48] VITALS: BMI 25.9
[2022-03-24 20:54] LABS: Microscopic, Urine URINE MICROSCOPIC (MICROSCOPIC)
[2022-03-24 20:58] LABS: Appearance,Urine CLEAR (Clear); Bilirubin,Urine Negative (Negative); Blood, Urine 3+ (Negative); Color,Urine RED (Yellow); Glucose,Urine (UA) Negative (Negative); Ketones,Urine Negative (Negative); Leukocyte Esterase,Urine TRACE (Negative); Nitrate,Urine POSITIVE (Negative); Protein,Urine 2+ (Negative); Specific Gravity, Urine 1.015 (1.005-1.030); Urobilinogen,Urine 0.2 EU/dl (0.2)
[2022-03-24 21:18] LABS: Basophils % 0.2 % (0.1-2.0); Eosinophils # 0.1 K/mm3 (0.0-0.4); Eosinophils % 0.8 % (0.1-12.0); Hematocrit 32.5 % (37.0-47.0); Hemoglobin 10.5 g/dL (12.2-16.2); Lymphocytes # 1.7 K/mm3 (0.7-4.5); Lymphocytes % 15.8 % (10-50); Mean Corpuscular HGB Conc 32.4 g/dL (31.8-35.4); Mean Corpuscular Hemoglobin 25.5 pg (27.0-31.2); Mean Corpuscular Volume 78.6 fl (81-99); Mean Platelet Volume 11.2 fl (7.4-10.4); Monocytes # 0.6 K/mm3 (0.1-1.0); Monocytes % 5.5 % (1.7-9.3); Neutrophils # 8.2 K/mm3 (1.8-7.8); Neutrophils % 77.7 % (37.0-80.0); Platelet Count 179 K/mm3 (142-424); Red Blood Count 4.14 M/mm3 (4.20-5.40); Red Cell Distribution Width 15.6 % (11.5-17.5); White Blood Count 10.6 K/mm3 (4.8-10.8)
[2022-03-24 21:25] LABS: Alanine Aminotransferase 17 U/L (12-78); Albumin Level 4.4 g/dl (3.5-5.0); Albumin/Globulin Ratio 1.7 (1.1-1.8); Alkaline Phosphatase 45 U/L (38-126); Anion Gap 13.7 mEq/L (5-15); Aspartate Amino Transferase 28 U/L (14-36); Bilirubin,Total 0.3 mg/dl (0.2-1.3); Blood Urea Nitrogen 7 mg/dl (7-17); Calcium 9.9 mg/dl (8.4-10.2); Carbon Dioxide 23 mmol/L (22.0-30.0); Chloride 104 mmol/L (98-107); Creatinine Clearance Estimated 145 mL/min (50-200); Estimated Glomerular Filt Rate 148 ml/min (>60); GFR (African American) 179 ML/MIN (>60); Globulin 2.6 g/dL (1.3-3.2); Glucose 94 mg/dl (74-100); Potassium 3.7 mmoL/L (3.5-5.1); Sodium 137 mmol/L (136-145)
[2022-03-24 21:30] VITALS: BP 99/53; PULSE 91; O2SAT 99
[2022-03-24 21:43] LABS: Bacteria,Urine 1+ /lpf; RBC,Urine TNTC #/hpf (0-3)
--- NOTE | 2022-03-24 21:46 | US_ITS ---
PROCEDURE INFORMATION: Exam: US , Transvaginal Exam date and time: 03/24/2022 10:28 PM Age: 26 years old Clinical indication: Lmp or gestational age (in weeks): 7 w 6 days; Other: Vag bleeding; ; Prior surgery; Surgery date: 6+ months; Surgery type: C section in prior ; Additional info: Vaginal bleeding early preg TECHNIQUE: Imaging protocol: Real-time transvaginal obstetrical ultrasound of the maternal pelvis with image documentation. Transvaginal imaging was used for better evaluation of the fetus, adnexa, and/or cervix. COMPARISON: US OB <= 14 WEEKS FETUS 03/11/2022 1:27 PM FINDINGS: Gestation: There is a living intrauterine . heart rate: heart tones are 165 bpm. Placenta: Trace subchorionic fluid could correlate small amount of blood. BIOMETRY: Gestational age (AUA): By crown-rump length, estimated gestational age is 7 weeks +5 days. IMPRESSION: 1. There is a living intrauterine . 2. Trace subchorionic fluid could correlate small amount of blood.
[2022-03-24 22:00] VITALS: BP 90/45; PULSE 86; O2SAT 100
--- NOTE | 2022-03-24 22:13 | HMH.EDPREG ---
ED Disposition Clinical Impression: Qualifiers: Weeks of gestation: 8 weeks Qualified Code(s): Z3A.08 - 8 weeks gestation of Disposition: Home, Self-Care Condition on Discharge: Good Instructions: DI for Vaginal Bleeding During Additional Instructions: call ob in am Referrals: Martha Allison [Primary Care Provider] - Stefani Jauregui MD [Staff Physician] - - Critical Care Critical Care Time: No Attestation: On 03/24/22, the high probability of a clinically significant, sudden or life threatening deterioration of the following system(s) required my full and direct attention, intervention and personal management. The time I documented below is in addition to time spent performing reported procedures but includes the following listed in this critical care notation. Medical Decision Making - Medical Records Medical records reviewed: Yes: I reviewed the patient's medical records. - Kamari Inquiry Pt receiving controlled substance: No Vital Signs: 03/24/22 20:19 03/24/22 21:30 03/24/22 22:00 Temperature 98.9 F Temperature Source Oral Pulse Rate 91 H 86 Pulse Rate [Left Radial] 107 H Respiratory Rate 18 Blood Pressure 99/53 L 90/45 L Blood Pressure [Right Arm] 103/55 L Blood Pressure Mean [Right Arm] 71 Blood Pressure Source [Right Arm] Automatic Cuff Blood Pressure Position [Right Arm] Sitting 02 Sat by Pulse Oximetry 100 99 100 Oxygen Delivery Method Room Air Room Air Room Air - Lab Data Lab results reviewed: Yes: I reviewed the patient's lab results. Lab Results 03/24/22 20:43: Urine Color Red, Urine Appearance Clear, Urine pH 7.0, Ur Specific [place] 1.015, Urine Protein 2+, Urine Glucose (UA) Negative, Urine Ketones Negative, Urine Blood 3+, Urine Nitrate Positive, Urine Bilirubin Negative, Urine Urobilinogen 0.2, Ur Leukocyte Esterase Trace, Urine RBC Tntc, Urine WBC 3-5, Ur Squamous Epith Cells 3-5, Urine Bacteria 1+ 03/24/22 20:43: Urine HCG, Qual Positive 03/24/22 21:04: WBC 10.6, RBC 4.14 L, Hgb 10.5 L, Hct 32.5 L, MCV 78.6 L, MCH 25.5 L, MCHC 32.4, RDW 15.6, Plt Count 179, MPV 11.2 H, Neut % (Auto) 77.7, Lymph % (Auto) 15.8, [place] % (Auto) 5.5, Eos % (Auto) 0.8, Baso % (Auto) 0.2, Neut # (Auto) 8.2 H, Lymph # (Auto) 1.7, [place] # (Auto) 0.6, Eos # (Auto) 0.1, Baso # (Auto) 0.0 03/24/22 21:04: Sodium 137, Potassium 3.7, Chloride 104, Carbon Dioxide 23, Anion Gap 13.7, BUN 7, Creatinine 0.50 L, Estimated Creat Clear 145, Estimated GFR 148, Est GFR ( Amer) 179, Glucose 94, Calcium 9.9, Total Bilirubin 0.3, AST 28, ALT 17, Alkaline Phosphatase 45, Total Protein 7.0, Albumin 4.4, Globulin 2.6, Albumin/Globulin Ratio 1.7 Result diagrams: 03/24/22 21:04 03/24/22 21:04 Orders (Tests/Meds): ED MEDICATIONS Generic Name Dose Route Start Last Admin Trade Name Freq PRN Reason Stop Dose Admin Sodium Chloride 1,000 mls @ 999 mls/hr 03/24/22 21:15 03/24/22 21:10 Sod Chlor 0.9% 1000ml Bag IV 03/24/22 22:15 999 mls/hr .[id number] KEIKO Administration ORDERS Category Date Time Status CMP [Comprehensive Metabolic Panel] Stat Lab 03/24/22 21:04 Results HCG,Quantitative Stat Lab 03/24/22 21:04 Results US OB transvaginal Stat Ultrasound 03/24/22 21:46 Taken - US Data US Images: Pelvis ED US Reviewed: Yes: I discussed the US results w/the radiologist Findings Narrative: iup with pos fht Medical Decision Narrative: call ob in am - has stable u/s exam HPI - General Chief complaint: Vaginal Bleeding Stated complaint: APPROX 8 WK pREG, BLEEDING, BACK PAIN Time Seen by Provider: 03/24/22 22:13 Mode of Arrival: Ambulatory Source of Information: Patient, Medical Record Limitations: No Limitations Description of Symptoms (Recalled from ER Triage Doc. by RN): 8 WEEKS WITH A DUE DATE OF 11/04/22- PT STATES SHE STARTED BLEEDING TODAY AND HAS PASSED ONE LARGE CLOT. - LMP 01/28/22 - History of Present Illness HPI N
[2022-03-24 22:16] LABS: Urine Pregnancy, HCG Qual. Positive (Negative)
--- NOTE | 2022-03-24 22:23 | PC.NURSE ---
Pt gone to RAD for U/S
--- NOTE | 2022-03-24 22:58 | PC.NURSE ---
Pt back from RAD
[2022-03-24 23:07] VITALS: BP 105/56; PULSE 86; RESP 18; TEMP 37.2; O2SAT 99
== END 2022-03-24 23:19 | disposition home or self-care (01) ==
PROVIDERS: Emergency Provider Emergency Medicine; PCP Physician Assistant
DX: N93.8 Other specified abnormal uterine and vaginal bleeding (principal); Z3A.08 8 weeks gestation of pregnancy; G43.709 Chronic migraine without aura, not intractable, without status migrainosus; F41.9 Anxiety disorder, unspecified; F17.210 Nicotine dependence, cigarettes, uncomplicated
CPT/HCPCS: 76817; 80053; 81001; 81025; 84702; 85025; 96360; 99284

== ENCOUNTER → 2022-03-25 09:40 | Outpatient (CLI) | payer OTHER, SELFPAY | PROVIDERS: Visit Provider Obstetrics & Gynecology | DX: Z34.90 Encounter for supervision of normal pregnancy, unspecified, unspecified trimester (principal) | CPT/HCPCS: 87086 ==

== ENCOUNTER → 2022-04-29 13:25 | Outpatient (CLI) | payer OTHER, SELFPAY ==
--- NOTE | 2022-04-29 13:26 | US_ITS ---
FINAL REPORT CLINICAL HISTORY: F/u on subchorionic bleed COMPARISON: 03/11/2022 FINDINGS: Sonographic images of the pelvis were obtained. A single, living intrauterine is noted [place] to rump length measures 7.18 cm cm which corresponds to 13 weeks 3 days gestation. Heartbeat is identified and measures 136 beats per minute. The placenta is anterior and covers the internal cervical os. presentation is breech. The right ovary is within normal limits. The left ovary is within normal limits. IMPRESSION: Single, living, intrauterine gestation with 13 weeks 3 days gestational age. Anterior placenta which covers the internal cervical os. Follow-up ultrasound is recommended. Reviewed, Interpreted and Dictated by Dionisio Poon III, MD Transcribed by Farhana Sweeney Authenticated and [facility]
== END ==
PROVIDERS: PCP Nurse Practitioner Family; Visit Provider Obstetrics & Gynecology
DX: O41.8X90 Other specified disorders of amniotic fluid and membranes, unspecified trimester, not applicable or unspecified (principal); O46.8X9 Other antepartum hemorrhage, unspecified trimester
CPT/HCPCS: 76801

== ENCOUNTER 2022-05-21 19:30 | Emergency (ER) | payer OTHER, SELFPAY ==
[2022-05-21 19:32] VITALS: BP 107/76; PULSE 114; RESP 16; TEMP 37.1; O2SAT 97; BMI 28.1
[2022-05-21 19:56] LABS: Microscopic, Urine URINE MICROSCOPIC (MICROSCOPIC)
[2022-05-21 19:57] LABS: Appearance,Urine CLEAR (Clear); Bilirubin,Urine Negative (Negative); Blood, Urine Negative (Negative); Color,Urine YELLOW (Yellow); Glucose,Urine (UA) Negative (Negative); Ketones,Urine Negative (Negative); Leukocyte Esterase,Urine Negative (Negative); Nitrate,Urine Negative (Negative); Protein,Urine Negative (Negative); Specific Gravity, Urine 1.025 (1.005-1.030); Urobilinogen,Urine 0.2 EU/dl (0.2)
[2022-05-21 19:59] LABS: WBC,Urine Occasional #/hpf (0-3)
--- NOTE | 2022-05-21 20:07 | PC.NURSE ---
FHT 139
--- NOTE | 2022-05-21 20:08 | HMH.EDPREG ---
ED Disposition Clinical Impression: Vaginitis affecting in second trimester, antepartum Qualifiers: Weeks of gestation: 16 weeks Qualified Code(s): Z3A.16 - 16 weeks gestation of Disposition: Home, Self-Care Condition on Discharge: Good Instructions: DI for -- Discomforts and Remedies Additional Instructions: use meds and call ob for follow up Prescriptions: Clotrimazole [3-Day Vaginal Cream] 21 gm VG DAILY #1 gm Transmission Status: Pending to [facility] Referrals: Millicent Mayer APRN [Primary Care Provider] - Stefani Jauregui MD [Staff Physician] - - Critical Care Critical Care Time: No Attestation: On 05/21/22, the high probability of a clinically significant, sudden or life threatening deterioration of the following system(s) required my full and direct attention, intervention and personal management. The time I documented below is in addition to time spent performing reported procedures but includes the following listed in this critical care notation. Medical Decision Making - Medical Records Medical records reviewed: Yes: I reviewed the patient's medical records. - Kamari Inquiry Pt receiving controlled substance: No Vital Signs: 05/21/22 19:32 Temperature 98.7 F Temperature Source Oral Pulse Rate [Right] 114 H Respiratory Rate 16 Blood Pressure [Right Arm] 107/76 L Blood Pressure Mean [Right Arm] 86 02 Sat by Pulse Oximetry 97 - Lab Data Lab results reviewed: Yes: I reviewed the patient's lab results. Lab Results 05/21/22 19:40: Urine Color Yellow, Urine Appearance Clear, Urine pH 6.0, Ur Specific [place] 1.025, Urine Protein Negative, Urine Glucose (UA) Negative, Urine Ketones Negative, Urine Blood Negative, Urine Nitrate Negative, Urine Bilirubin Negative, Urine Urobilinogen 0.2, Ur Leukocyte Esterase Negative, Urine WBC Occasional, Ur Squamous Epith Cells 10-20 Medical Decision Narrative: 16 weeks with prob yeast vaginitis and on pelvic rest will defer speculum exam - will treat with clotrimazole vaginally x [address] jauregui for follow up HPI - General Chief complaint: Urogenital-Female Stated complaint: vaginal discomfort, 16 weeks Time Seen by Provider: 05/21/22 20:08 Mode of Arrival: Ambulatory Source of Information: Patient, Medical Record Limitations: No Limitations Description of Symptoms (Recalled from ER Triage Doc. by RN): pt states 16 weeks and for 3-4 days has been having burning, itching, white vaginal discharge with painful urination - History of Present Illness HPI Narrative: over the last few days has itchy white d/c - no bleeding and no def fishy smell and no coitus MD Complaint: vaginal discharge Onset (ago): day(s) Consistency: intermittent Severity: moderate Associated symptoms: vaginal discharge, dysuria, other (itchy) Vaginal bleeding: none : Yes Date of Last Menstrual Period: 16 weeks care: followed by OB - Related Data Home Medications Medication Instructions Recorded Confirmed vits no.126-ferrous fum 1 tab PO DAILY tab 03/15/22 05/10/22 28 mg iron-folic acid 800 mcg tablet Previous Rx's Medication Instructions Recorded ondansetron 4 mg disintegrating 4 mg PO Q4H PRN #30 tab 03/15/22 tablet promethazine 12.5 mg tablet 12.5 mg PO Q6H PRN #60 tab 04/11/22 Clotrimazole [3-Day Vaginal Cream] 21 gm VG DAILY #1 gm 05/21/22 Allergies Allergy/AdvReac Type Severity Reaction Status Date / Time azithromycin [From Zithromax] Allergy Intermediate I-RASH Verified 05/10/22 11:13 cefixime [From Suprax] Allergy Unknown ITCHING,HIV Verified 05/10/22 11:13 ES latex Allergy Unknown VOMITING,SW Verified 05/10/22 11:13 ELLING tramadol Allergy Unknown I-RASH,HEAD Verified 05/10/22 11:13 ACHE [facility] History - Hepatitis A Screen Attestation statement:: This patient has been screened for Hepatitis A
[2022-05-21 20:52] VITALS: BP 117/56; PULSE 102; RESP 18; TEMP 37.1; O2SAT 100
== END 2022-05-21 20:56 | disposition home or self-care (01) ==
PROVIDERS: Emergency Medicine; Emergency Provider Emergency Medicine; PCP Nurse Practitioner Family
DX: O23.592 Infection of other part of genital tract in pregnancy, second trimester (principal); Z3A.16 16 weeks gestation of pregnancy; Z88.6 Allergy status to analgesic agent; Z88.4 Allergy status to anesthetic agent; Z91.040 Latex allergy status; I51.89 Other ill-defined heart diseases; G43.909 Migraine, unspecified, not intractable, without status migrainosus; F41.9 Anxiety disorder, unspecified; D64.9 Anemia, unspecified; Z72.0 Tobacco use
CPT/HCPCS: 81001; 99282

== ENCOUNTER → 2022-05-27 08:42 | Outpatient (CLI) | payer OTHER, SELFPAY ==
--- NOTE | 2022-05-27 08:42 | US_ITS ---
FINAL REPORT CLINICAL HISTORY: position of placenta COMPARISON: 04/29/2022 FINDINGS: Transvaginal sonographic images of the pelvis were obtained. There is a single living intrauterine approximately 17 weeks. Heart rate detected at 143 beats per minute. The placenta is low lying and covers the internal cervical os consistent with placenta previa. IMPRESSION: Placenta previa. Reviewed, Interpreted and Dictated by Dionisio Poon III, MD Transcribed by Kacy Laboy Authenticated and [facility]
== END ==
PROVIDERS: PCP Nurse Practitioner Family; Visit Provider Obstetrics & Gynecology
DX: O44.00 Complete placenta previa NOS or without hemorrhage, unspecified trimester (principal)
CPT/HCPCS: 76817

== ENCOUNTER 2022-07-06 21:16 | Outpatient (CLI) | payer OTHER, SELFPAY ==
[2022-07-06 21:53] VITALS: BP 102/59; PULSE 106; RESP 17; TEMP 36.8; O2SAT 97; BMI 29.2
[2022-07-06 22:08] LABS: Microscopic, Urine URINE MICROSCOPIC (MICROSCOPIC)
[2022-07-06 22:12] LABS: Appearance,Urine CLEAR (Clear); Bilirubin,Urine Negative (Negative); Blood, Urine Negative (Negative); Color,Urine YELLOW (Yellow); Glucose,Urine (UA) Negative (Negative); Ketones,Urine Negative (Negative); Leukocyte Esterase,Urine Negative (Negative); Nitrate,Urine Negative (Negative); PH,Urine 7.5 (5.0-8.5); Protein,Urine Negative (Negative)
[2022-07-06 22:23] LABS: Barbiturates Screen,Urine Negative ng/ml (<200)
[2022-07-06 22:24] LABS: Benzodiazepines Screen,Urine Negative ng/ml (<200)
[2022-07-06 22:25] LABS: Amphetamine/Metha Screen,Urine Negative ng/ml (<1000); Cannabinoid Screen,Urine Negative ng/ml (<50)
[2022-07-06 22:26] LABS: Cocaine Screen,Urine Negative ng/ml (<300)
[2022-07-06 22:27] LABS: Methadone Screen,Urine Negative ng/ml (<300); Opiate Screen,Urine Negative ng/ml (<300)
[2022-07-06 22:28] LABS: Phencyclidine Screen,Urine Negative ng/ml (<25)
[2022-07-06 22:33] LABS: WBC,Urine Occasional #/hpf (0-3)
== END 2022-07-06 22:35 | disposition home or self-care (01) ==
LOC: OBOUT 21:19 → OB 21:20
PROVIDERS: PCP Obstetrics & Gynecology; Visit Provider Obstetrics & Gynecology
DX: O26.892 Other specified pregnancy related conditions, second trimester (principal); Z3A.22 22 weeks gestation of pregnancy; R10.2 Pelvic and perineal pain
CPT/HCPCS: 80305; 81001; G0463

== ENCOUNTER → 2022-07-08 14:25 | Outpatient (CLI) | payer OTHER, SELFPAY | PROVIDERS: PCP Family Medicine; Visit Provider Nurse Practitioner Family | DX: Z20.822 Contact with and (suspected) exposure to COVID-19 (principal); J02.9 Acute pharyngitis, unspecified | CPT/HCPCS: C9803; U0003; U0005 ==

== ENCOUNTER 2022-07-09 17:33 | Emergency (ER) | payer OTHER, SELFPAY ==
[2022-07-09 17:55] VITALS: BP 120/75; PULSE 109; RESP 19; TEMP 36.9; O2SAT 98; BMI 26.5
--- NOTE | 2022-07-09 18:32 | HMH.EDUTC ---
[facility] Disposition Clinical Impression: Acute bronchitis Qualifiers: Bronchitis organism: unspecified organism Qualified Code(s): J20.9 - Acute bronchitis, unspecified Disposition: Home, Self-Care Condition on Discharge: Good Instructions: DI for Acute Bronchitis Additional Instructions: Start antibiotic today. Be sure to complete entire prescription even if feeling better Tylenol as needed for pain or fever Humidifier/vaporizer/hot steamy shower Follow-up with primary care monday. Follow-up immediately in the ER of the [facility] for new or worsening symptoms or no noticeable improvement over the next 48-72 hours. Prescriptions: Amoxicillin [Amoxicillin 500mg Tab] 500 mg PO BID 10 Days #20 tab Transmission Status: Pending to [facility] Referrals: Rudy Sutton MD [Primary Care Provider] - Time of Disposition: 19:03 Medical Decision Making - Kamari Inquiry Pt receiving controlled substance: No Vital Signs: 07/09/22 17:55 07/09/22 18:57 Temperature 98.5 F 98.5 F Temperature Source Oral Pulse Rate 109 H Pulse Rate [Right Brachial] 109 H Respiratory Rate 19 19 Blood Pressure 120/75 Blood Pressure [Right Arm] 120/75 Blood Pressure Mean [Right Arm] 90 Blood Pressure Source [Right Arm] Automatic Cuff Blood Pressure Position [Right Arm] Sitting 02 Sat by Pulse Oximetry 98 Oxygen Delivery Method Room Air - Lab Data Lab Results 07/09/22 18:35: Strep Scn Rapid Clinic Negative Orders (Tests/Meds): ORDERS Category Date Time Status Full Resp Panel w/COVID ([facility]) Routine Lab 07/09/22 18:40 Received Strep Screen Confirmation Stat Micro 07/09/22 18:35 Received [facility] HPI - General Chief complaint: Urgent Treatment Center Stated complaint: sore throat, cough SOA runny nose Time Seen by Provider: 07/09/22 18:32 Mode of Arrival: Ambulatory Source of Information: Patient Limitations: No Limitations Description of Symptoms (Recalled from Triage Doc. by RN): PATIENT C/O SORE THROAT, COUGH, AND SOA SINCE YESTERDAY HEENT Symptoms (Recalled from RN notes): Yes Resp Symptoms (Recalled from RN notes): Yes Skin Symptoms (Recalled from RN notes): No MS Symptoms (Recalled from RN notes): No Functional Status (Recalled from RN notes): WNL - History of Present Illness Provider Complaint: 27 yr old female presents for sore throat, coughing up thick green sputum and soa since yesterday, was tested for covid yesterday ans was neg. pt states her children are also ill - Related Data Home Medications Medication Instructions Recorded Confirmed vits no.126-ferrous fum 1 tab PO DAILY tab 03/15/22 07/07/22 28 mg iron-folic acid 800 mcg tablet Previous Rx's Medication Instructions Recorded ondansetron 4 mg disintegrating 4 mg PO Q4H PRN #30 tab 03/15/22 tablet promethazine 12.5 mg tablet 12.5 mg PO Q6H PRN #60 tab 04/11/22 ferrous sulfate 325 mg (65 mg 325 mg PO DAILY #90 tab 06/03/22 iron) tablet docusate sodium 100 mg capsule 100 mg PO BID #60 cap 07/07/22 Amoxicillin [Amoxicillin 500mg Tab] 500 mg PO BID 10 Days #20 tab 07/09/22 Allergies Allergy/AdvReac Type Severity Reaction Status Date / Time azithromycin [From Zithromax] Allergy Intermediate I-RASH Verified 07/07/22 08:43 cefixime [From Suprax] Allergy Unknown ITCHING,HIV Verified 07/07/22 08:43 ES latex Allergy Unknown VOMITING,SW Verified 07/07/22 08:43 ELLING tramadol Allergy Unknown I-RASH,HEAD Verified 07/07/22 08:43 ACHE - Worker's Comp Is this a Worker's Comp case?: No [facility] History - Hepatitis A Screen Attestation statement:: This patient has been screened for Hepatitis A risk factors. I have reviewed the patient's past medical history: Yes Medical History: Reports:: Anxiety, Migraine, Valvular Heart Disease Denies:: Cancer, Depression, Diabetes Mellitus Type 1, Diabetes Mellitus Type 2, Hypertension, Internal Pacemaker, MRSA, Seizures Other Medical History: Reports: Anemia.
[2022-07-09 18:41] LABS: Adenovirus,PCR Not Detected (NotDetected); Bordetella Pertussis Not Detected (NotDetected); Chlamydophila Pneumoniae, PCR Not Detected (NotDetected); Coronavirus 19, PCR Not Detected (NotDetected); Coronavirus 229E Not Detected (NotDetected); Coronavirus NL63 Not Detected (NotDetected); Coronavirus OC43 Not Detected (NotDetected); Coronovirus HKU1,PCR Not Detected (NotDetected); Human Metapneumovirus Not Detected (NotDetected); Influenza A, PCR Not Detected (NotDetected); Influenza AH1, 2009 Not Detected (NotDetected); Influenza AH1, PCR Not Detected (NotDetected); Influenza AH3,PCR Not Detected (NotDetected); Influenza B, PCR Not Detected (NotDetected); Mycoplasma Pneumoniae, PCR Not Detected (NotDetected); Parainfluenza 1, PCR Not Detected (NotDetected); Parainfluenza 2, PCR Not Detected (NotDetected); Parainfluenza 3, PCR Not Detected (NotDetected); Parainfluenza 4, PCR Not Detected (NotDetected); Respiratory Syncytial Virus Not Detected (NotDetected)
[2022-07-09 18:50] LABS: UTC Strep Screen (Rapid) Negative (Negative)
[2022-07-09 18:57] VITALS: BP 120/75; PULSE 109; RESP 19; TEMP 36.9; O2SAT 98
[2022-07-09 23:29] LABS: Rhinovirus/Enterovirus Detected (NotDetected)
== END 2022-07-09 19:00 | disposition home or self-care (01) ==
PROVIDERS: Emergency Provider Nurse Practitioner Family; PCP Family Medicine
DX: J20.9 Acute bronchitis, unspecified (principal)
CPT/HCPCS: 87581; 87632; 87798; 87880; 99212; C9803; G0463; U0003; U0005

== ENCOUNTER → 2022-08-08 08:04 | Outpatient (CLI) | payer OTHER, SELFPAY ==
[2022-08-08 08:19] LABS: Basophils # 0.1 K/mm3 (0-0.2); Basophils % 0.5 % (0.1-2.0); Eosinophils # 0.1 K/mm3 (0.0-0.4); Eosinophils % 1.3 % (0.1-12.0); Hematocrit 31.8 % (37.0-47.0); Hemoglobin 10.4 g/dL (12.2-16.2); Lymphocytes # 1.6 K/mm3 (0.7-4.5); Lymphocytes % 16.2 % (10-50); Mean Corpuscular HGB Conc 32.8 g/dL (31.8-35.4); Mean Corpuscular Hemoglobin 27.4 pg (27.0-31.2); Mean Corpuscular Volume 83.5 fl (81-99); Mean Platelet Volume 11.1 fl (7.4-10.4); Monocytes # 0.5 K/mm3 (0.1-1.0); Monocytes % 5.3 % (1.7-9.3); Neutrophils # 7.5 K/mm3 (1.8-7.8); Neutrophils % 76.7 % (37.0-80.0); Platelet Count 162 K/mm3 (142-424); Red Blood Count 3.81 M/mm3 (4.20-5.40); Red Cell Distribution Width 19.9 % (11.5-17.5); White Blood Count 9.8 K/mm3 (4.8-10.8)
[2022-08-08 08:35] LABS: Glucose,Fasting 85 mg/dl (74-100)
[2022-08-08 09:55] LABS: Glucose 1 Hour 133 mg/dL (74-100)
== END ==
PROVIDERS: PCP Family Medicine; Visit Provider Obstetrics & Gynecology
DX: Z34.90 Encounter for supervision of normal pregnancy, unspecified, unspecified trimester (principal)
CPT/HCPCS: 36415; 82951; 85025

== ENCOUNTER 2022-09-27 10:16 | Emergency (ER) | payer OTHER, SELFPAY ==
[2022-09-27 11:10] VITALS: BP 131/78; PULSE 93; RESP 18; TEMP 36.8; O2SAT 99; BMI 25.4
--- NOTE | 2022-09-27 11:23 | EXP.UTC ---
Discharge Plan Disposition Patient Disposition: Home, Self-Care Condition: Good Prescriptions Prescriptions: No Action ferrous sulfate [Feosol] 325 mg (65 mg iron) tablet 325 mg PO DAILY Qty: 90 1RF docusate sodium [Colace] 100 mg capsule 100 mg PO BID Qty: 60 2RF Classic 28 mg iron- 800 mcg tablet 1 tab PO DAILY ondansetron 4 mg tablet,disintegrating 4 mg PO Q4H PRN (Reason: nausea and vomiting) Qty: 30 4RF promethazine 12.5 mg tablet 12.5 mg PO Q6H PRN (Reason: nausea and vomiting) Qty: 60 0RF albuterol sulfate [Ventolin HFA] 90 mcg/actuation HFA aerosol inhaler 1 inh inhalation QID PRN (Reason: shortness of breath or wheezing) Qty: 6.7 0RF sertraline [Zoloft] 50 mg tablet 50 mg PO DAILY Qty: 30 5RF Referrals Follow up/Referrals: Rudy Sutton MD [Primary Care Provider] - See instructions Activity Restrictions/Add. Instructions Additional Instructions/Restrictions: *Monitor Temp, Over the counter Motrin or Tylenol as directed/as needed Tylenol every 4 hours and Motrin every 6 hours (as long as your family doctor has told you that you can take it) for fever or pain. and straight to ER if unable to lower temp less than 101.0 after medication given *Warm salt water gargles may help to soothe the throat *Throat Lozenges? *Warm fluids like tea with honey may help to soothe the throat? *Sleep elevated *Humidifier/Vaporizer Your throat swab was sent for culture. Those results are typically sent to your primary care. Be sure to follow up in 2-3 days with your family doctor/primary care physician if no improvement so they can review those result and treat if necessary. If you don?t have a primary care doctor, I recommend you get one but in the mean time, you will have to return to a walk in clinic Follow up IMMEDIATELY for new or worsening symptoms or no Noticeable improvement over the next 48-72 hours. 911 for difficulty breathing or swallowing Clinical Impressions Clinical Impression: Viral upper respiratory tract infection with cough Instructions Patient Instructions: DI for Viral Upper Respiratory Infection -- Adult Discharge ED Provider: Deborah Scanlon [facility] [place] HPI General Stated complaint: sore throat, [place] Time Seen by Provider: 09/27/22 11:24 History of Present Illness Provider Complaint: Patient states that she has been having sore throat and headache for a couple of days States her child had strep throat last week and she has an infant in the NICU and didnt want to go around the baby until she was checked Related Data Home Medications Medication Instructions Recorded Confirmed vits no.126-ferrous fum 1 tab PO DAILY Supplement 03/15/22 07/26/22 28 mg iron-folic acid 800 mcg tablet (Classic ) Previous Rx's Medication Instructions Recorded ondansetron 4 mg disintegrating 4 mg PO Q4H PRN nausea and 03/15/22 tablet vomiting #30 tabs promethazine 12.5 mg tablet 12.5 mg PO Q6H PRN nausea and 04/11/22 vomiting #60 tabs ferrous sulfate 325 mg (65 mg 325 mg PO DAILY #90 tabs 06/03/22 iron) tablet (Feosol) docusate sodium 100 mg capsule 100 mg PO BID #60 caps 07/07/22 (Colace) albuterol sulfate 90 mcg/actuation 1 inh inhalation QID PRN shortness 07/14/22 aerosol inhaler (Ventolin HFA) of breath or wheezing #6.7 grams sertraline 50 mg tablet (Zoloft) 50 mg PO DAILY #30 tabs 07/26/22 Allergies Allergy/AdvReac Type Severity Reaction Status Date / Time azithromycin [From Zithromax] Allergy Intermediate I-RASH Verified 07/26/22 09:35 cefixime [From Suprax] Allergy Unknown ITCHING,HIV Verified 07/26/22 09:35 ES latex Allergy Unknown VOMITING,SW Verified 07/26/22 09:35 ELLING tramadol Allergy Unknown I-RASH,HEAD Verified 07/26/22 09:35 ACHE [facility] Medical History (Updated 09/27/22 @ 11:45 by Deborah Scanlon, BUSINESS CONTINUITY MANAGER) Hypertension Surgical History (Updated 09/27/22 @ 11:31 by Roseanne
[2022-09-27 11:37] LABS: UTC Strep Screen (Rapid) Negative (Negative)
[2022-09-27 11:48] VITALS: BP 131/78; PULSE 93; RESP 18; TEMP 36.8; O2SAT 99
== END 2022-09-27 11:56 | disposition home or self-care (01) ==
PROVIDERS: Emergency Provider Nurse Practitioner; PCP Family Medicine
DX: J02.9 Acute pharyngitis, unspecified (principal); R06.02 Shortness of breath; R11.2 Nausea with vomiting, unspecified; R51.9 Headache, unspecified; I10 Essential (primary) hypertension; F17.290 Nicotine dependence, other tobacco product, uncomplicated; Z79.51 Long term (current) use of inhaled steroids; Z79.899 Other long term (current) drug therapy; Z88.0 Allergy status to penicillin; Z88.1 Allergy status to other antibiotic agents; Z88.3 Allergy status to other anti-infective agents; Z88.6 Allergy status to analgesic agent; Z88.8 Allergy status to other drugs, medicaments and biological substances; Z91.040 Latex allergy status
CPT/HCPCS: 87880; 99213; G0463

== ENCOUNTER 2022-10-10 12:58 | Emergency (ER) | payer OTHER, SELFPAY ==
[2022-10-10 14:46] VITALS: BP 0/0; PULSE 0; RESP 0; TEMP -17.7; TEMP 0
== END 2022-10-10 14:49 | disposition left against medical advice (07) ==
LOC: UTC 12:59
PROVIDERS: Emergency Provider Nurse Practitioner; PCP Family Medicine
DX: Z53.21 Procedure and treatment not carried out due to patient leaving prior to being seen by health care provider (principal)

== ENCOUNTER → 2022-12-06 16:51 | Outpatient (CLI) | payer OTHER, SELFPAY ==
[2022-12-08 10:18] LABS: Rapid Plasma Reagin Ab Titer Non Reactive (NonRea<1:1)
[2022-12-09 03:39] LABS: Neisseria gonorrhoeae, NAA Negative (Negative)
[2022-12-10 22:29] LABS: HIV Screen 4th Generation wRfx NON REACTIVE; Hep A Ab, IgM NEGATIVE; Hepatitis B Core Antibody IgM NEGATIVE; Hepatitis B Surface Antigen NEGATIVE; Hepatitis C Antibody <0.1
== END ==
PROVIDERS: PCP Nurse Practitioner Family; Visit Provider Obstetrics & Gynecology
DX: Z76.89 Persons encountering health services in other specified circumstances (principal); Z20.2 Contact with and (suspected) exposure to infections with a predominantly sexual mode of transmission; Z11.4 Encounter for screening for human immunodeficiency virus [HIV]
CPT/HCPCS: 36415; 80074; 86593; 86695; 86703; 86790; 87491; 87591; G0432

== ENCOUNTER → 2022-12-09 15:59 | Outpatient (CLI) | payer OTHER, SELFPAY ==
[2022-12-09 17:54] LABS: Basophils # 0.1 K/mm3 (0-0.2); Basophils % 1.7 % (0.1-2.0); Eosinophils # 0.1 K/mm3 (0.0-0.4); Eosinophils % 2.3 % (0.1-12.0); Hematocrit 41.5 % (37.0-47.0); Hemoglobin 13.8 g/dL (12.2-16.2); Lymphocytes # 1.9 K/mm3 (0.7-4.5); Lymphocytes % 32.3 % (10-50); Mean Corpuscular HGB Conc 33.2 g/dL (31.8-35.4); Mean Corpuscular Hemoglobin 28.3 pg (27.0-31.2); Mean Corpuscular Volume 85.4 fl (81-99); Mean Platelet Volume 9.3 fl (7.4-10.4); Monocytes # 0.4 K/mm3 (0.1-1.0); Monocytes % 6.5 % (1.7-9.3); Neutrophils # 3.4 K/mm3 (1.8-7.8); Neutrophils % 57.2 % (37.0-80.0); Platelet Count 217 K/mm3 (142-424); Red Blood Count 4.86 M/mm3 (4.20-5.40); Red Cell Distribution Width 13.6 % (11.5-17.5); White Blood Count 5.9 K/mm3 (4.8-10.8)
== END ==
PROVIDERS: PCP Family Medicine; Visit Provider Nurse Practitioner Family
DX: R19.7 Diarrhea, unspecified (principal)
CPT/HCPCS: 36415; 85025

== ENCOUNTER 2023-02-05 18:29 | Emergency (ER) | payer OTHER, SELFPAY ==
--- NOTE | 2023-02-05 18:40 | XR_ITS ---
PROCEDURE INFORMATION: Exam: XR Right Foot Exam date and time: 02/05/2023 6:38 PM Age: 27 years old Clinical indication: Pain; Foot; Right; Additional info: Pain swelling TECHNIQUE: Imaging protocol: Radiologic exam of the right foot. Views: 3 or more views. Total images: 3 COMPARISON: CR XR KNEE RT 3V 12/06/2019 4:40 PM FINDINGS: Bones/joints: No acute fracture or joint dislocation. No concerning bone lesions or calcifications. Joint spaces are well maintained and appropriate for age. Soft tissues: Unremarkable soft tissues. IMPRESSION: Negative right foot.
[2023-02-05 18:50] VITALS: BP 151/87; PULSE 73; RESP 18; TEMP 37.1; O2SAT 97; BMI 28.5
[2023-02-05 18:57] VITALS: BP 151/87; PULSE 73; RESP 18; TEMP 37.1; O2SAT 97
--- NOTE | 2023-02-05 19:17 | EXP.UTC ---
Discharge Plan Disposition Patient Disposition: Home, Self-Care Condition: Good Prescriptions Prescriptions: New prednisone [prednisone] 20 mg tablet 20 mg PO BID Qty: 10 0RF No Action labetalol 100 mg tablet 100 mg PO TID aspirin 81 mg tablet,delayed release (DR/EC) 81 mg PO DAILY hydroxyzine HCl 25 mg tablet 25 mg PO HS Qty: 30 3RF paroxetine HCl [Paxil] 10 mg tablet 10 mg PO DAILY Qty: 30 5RF Referrals Follow up/Referrals: Rudy Sutton MD [Primary Care Provider] - See instructions Activity Restrictions/Add. Instructions Additional Instructions/Restrictions: follow up with pcp steroids as ordered ice as needed tylenol or motrin as needed if symptoms worsen return or be seen in ed Clinical Impressions Clinical Impression: Acute foot pain Instructions Patient Instructions: DI for Foot Pain Discharge ED Provider: Steph ([facility] [place] HPI General Stated complaint: AO 02/04 right foot pain and swollen Mode of Arrival: Ambulatory Source of Information: Patient Limitations: No Limitations Time Seen by Provider: 02/05/23 19:17 Description of Symptoms (Recalled from Triage Doc. by RN): PATIENT C/O PAIN AND SWELLING TO RIGHT FOOT. SHE REPORTS HITTING IT ON THE KITCHEN TABLE LAST NIGHT HEENT Symptoms (Recalled from RN notes): No Resp Symptoms (Recalled from RN notes): No Skin Symptoms (Recalled from RN notes): No MS Symptoms (Recalled from RN notes): Yes Functional Status (Recalled from RN notes): WNL History of Present Illness Provider Complaint: 27 yr old female presents for ankle pain. pt states last pm she hit the back of her foot on the table and now having pain with walking Related Data Home Medications Medication Instructions Recorded Confirmed aspirin 81 mg tablet,delayed 81 mg PO DAILY 12/06/22 12/06/22 release labetalol 100 mg tablet 100 mg PO TID 12/06/22 12/06/22 Previous Rx's Medication Instructions Recorded hydroxyzine HCl 25 mg tablet 25 mg PO HS #30 tabs 12/06/22 paroxetine HCl 10 mg tablet (Paxil) 10 mg PO DAILY #30 tabs 12/06/22 prednisone 20 mg tablet 20 mg PO BID #10 tabs 02/05/23 Allergies Allergy/AdvReac Type Severity Reaction Status Date / Time azithromycin [From Zithromax] Allergy Intermediate I-RASH Verified 12/06/22 15:51 cefixime [From Suprax] Allergy Unknown ITCHING,HIV Verified 12/06/22 15:51 ES latex Allergy Unknown VOMITING,SW Verified 12/06/22 15:51 ELLING tramadol Allergy Unknown I-RASH,HEAD Verified 12/06/22 15:51 ACHE Worker's Comp Is this a Worker's Comp case?: No PFSH PFS Disclaimer: The information contained in this section may have been updated after the patient was seen, as this information can be updated by other users. 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 Surgical History , BATCH WEIGHER) H/O bladder repair surgery History of section History of cholecystectomy History of hysterectomy History of tonsillectomy Family History , BATCH WEIGHER) Diabetes Cancer Hypertension Social History , BATCH WEIGHER) Smoking Status: Current every day smoker tobacco type: cigarettes packs per day: 1 second hand exposure: No alcohol intake: never substance use type: denies use current occupational status: unemployed Travel in the last 8 weeks: None household members: other housing: house current occupation: [employer] current occupational exposures/hazards: No caffeine: Yes ROS Obtained: Yes All systems reviewed & no additional complaints except as documented Constitutional Constitutional: Reports system reviewed and no additional complaints, except as documented and Reports as per HPI Eyes Eye
== END 2023-02-05 19:26 | disposition home or self-care (01) ==
PROVIDERS: Emergency Provider Nurse Practitioner Family; PCP Family Medicine
DX: M79.671 Pain in right foot (principal); W22.8XXA Striking against or struck by other objects, initial encounter
CPT/HCPCS: 73630; 99212; 99214; G0463

== ENCOUNTER 2023-03-26 19:32 | Emergency (ER) | payer OTHER, SELFPAY ==
[2023-03-26 19:34] VITALS: BP 146/89; PULSE 104; RESP 18; TEMP 36.8; O2SAT 100; BMI 25.9
[2023-03-26 19:46] LABS: Basophils % 0.7 % (0.1-2.0); Eosinophils # 0.1 K/mm3 (0.0-0.4); Hematocrit 43.8 % (37.0-47.0); Hemoglobin 14.5 g/dL (12.2-16.2); Lymphocytes # 2.2 K/mm3 (0.7-4.5); Mean Corpuscular HGB Conc 33.1 g/dL (31.8-35.4); Mean Corpuscular Hemoglobin 28.3 pg (27.0-31.2); Mean Corpuscular Volume 85.3 fl (81-99); Mean Platelet Volume 8.6 fl (7.4-10.4); Monocytes # 0.3 K/mm3 (0.1-1.0); Monocytes % 5.4 % (1.7-9.3); Neutrophils # 3.1 K/mm3 (1.8-7.8); Neutrophils % 53.8 % (37.0-80.0); Platelet Count 188 K/mm3 (142-424); Red Blood Count 5.13 M/mm3 (4.20-5.40); White Blood Count 5.8 K/mm3 (4.8-10.8)
[2023-03-26 19:47] LABS: Chloride 100 mmol/L (98-107)
[2023-03-26 19:48] LABS: Potassium 4.2 mmoL/L (3.5-5.1); Sodium 141 mmol/L (136-145)
[2023-03-26 19:50] LABS: Alanine Aminotransferase 27 U/L (12-78); Albumin Level 4.9 g/dl (3.5-5.0); Albumin/Globulin Ratio 1.5 (1.1-1.8); Alkaline Phosphatase 57 U/L (38-126); Anion Gap 19.2 mEq/L (5-15); Aspartate Amino Transferase 37 U/L (14-36); Bilirubin,Total 0.5 mg/dl (0.2-1.3); Blood Urea Nitrogen 10 mg/dl (7-17); Carbon Dioxide 26 mmol/L (22.0-30.0); Creatinine Clearance Estimated 103 mL/min (50-200); Estimated Glomerular Filt Rate 100 ml/min (>60); GFR (African American) 121 ML/MIN (>60); Globulin 3.2 g/dL (1.3-3.2); Total Protein,Serum 8.1 g/dl (6.3-8.2)
[2023-03-26 19:51] LABS: Calcium 9.7 mg/dl (8.4-10.2); Glucose 102 mg/dl (74-100)
[2023-03-26 20:00] VITALS: BP 123/75; PULSE 86; O2SAT 98
--- NOTE | 2023-03-26 20:06 | CT_ITS ---
PROCEDURE INFORMATION: Exam: CT Head Without Contrast Exam date and time: 03/26/2023 8:18 PM Age: 27 years old Clinical indication: Pain; Headache; Additional info: Headache, numbness right face TECHNIQUE: Imaging protocol: Computed tomography of the head without contrast. Radiation optimization: All CT scans at this facility use at least one of these dose optimization techniques: automated exposure control; mA and/or kV adjustment per patient size (includes targeted exams where dose is matched to clinical indication); or iterative reconstruction. REPORTING DATA: Count of CT and Cardiac NM exams in prior 12 months: This patient has received 0 known CTs and 0 known cardiac nuclear medicine studies in the 12 months prior to the current study. COMPARISON: MR HEAD/BRAIN WO CON 01/11/2021 3:28 PM FINDINGS: Brain: No evidence for acute transcortical infarct. No mass effect or midline shift. No extra-axial collection. No acute intracranial hemorrhage. Basal cisterns are patent. Cerebral ventricles: No ventriculomegaly. Paranasal sinuses: Visualized sinuses are unremarkable. No fluid levels. Mastoid air cells: Visualized mastoid air cells are well aerated. Bones/joints: Unremarkable. No acute fracture. Soft tissues: Unremarkable. IMPRESSION: No evidence for acute transcortical infarct, hydrocephalus, acute intracranial hemorrhage, or mass effect.
--- NOTE | 2023-03-26 20:13 | PC.NURSE ---
Pt ambulatory to bathroom. Urine sample provided.
--- NOTE | 2023-03-26 20:15 | PC.NURSE ---
Pt gone to RAD via stretcher
[2023-03-26 20:16] LABS: Microscopic, Urine URINE MICROSCOPIC (MICROSCOPIC)
--- NOTE | 2023-03-26 20:20 | PC.NURSE ---
Pt back from RAD
[2023-03-26 20:21] LABS: Appearance,Urine CLEAR (Clear); Bilirubin,Urine Negative (Negative); Blood, Urine Negative (Negative); Color,Urine YELLOW (Yellow); Glucose,Urine (UA) Negative (Negative); Ketones,Urine Negative (Negative); Leukocyte Esterase,Urine Negative (Negative); Nitrate,Urine Negative (Negative); Protein,Urine Negative (Negative); Urobilinogen,Urine 0.2 EU/dl (0.2)
[2023-03-26 20:31] LABS: Bacteria,Urine 1+ /lpf; RBC,Urine Occasional #/hpf (0-3)
--- NOTE | 2023-03-26 20:58 | HMH.EDGENADL ---
Discharge Plan Disposition Patient Disposition: Home, Self-Care Condition: Fair Prescriptions Prescriptions: No Action labetalol 100 mg tablet 100 mg PO TID aspirin 81 mg tablet,delayed release (DR/EC) 81 mg PO DAILY hydroxyzine HCl 25 mg tablet 25 mg PO HS Qty: 30 3RF paroxetine HCl [Paxil] 10 mg tablet 10 mg PO DAILY Qty: 30 5RF prednisone [prednisone] 20 mg tablet 20 mg PO BID Qty: 10 0RF Referrals Follow up/Referrals: Millicent Mayer APRN [Primary Care Provider] - 3 days (neurologist ) Clinical Impressions Clinical Impression: Migraine Instructions Patient Instructions: DI for Migraine Discharge ED Provider: Cristiano Tidwell General Adult HPI General Chief complaint: Headache Stated complaint: [place],DIZZINESS,R SIDE NECK PAIN Time Seen by Provider: 03/26/23 19:59 Mode of Arrival: Family Vehicle Source of Information: Patient and Relative Limitations: No Limitations Description of Symptoms (Recalled from ER Triage Doc. by RN): Pt states that she has had severe right sided neck pain for the last two days. States that roughly one hour ago she was laying in bed and her head started to have a severe headache with dizziness. History of Present Illness HPI narrative: Patient reports right-sided neck pain for 3 days with right-sided headache for times today with numbness. The patient reports blurred vision but no diplopia MD complaint: headache and neck pain Onset (ago): day(s) (1 day) Location: face (right) Radiation: neck and extremity Severity: moderate Related Data Home Medications Medication Instructions Recorded Confirmed aspirin 81 mg tablet,delayed 81 mg PO DAILY 12/06/22 12/06/22 release labetalol 100 mg tablet 100 mg PO TID 12/06/22 12/06/22 Previous Rx's Medication Instructions Recorded hydroxyzine HCl 25 mg tablet 25 mg PO HS #30 tabs 12/06/22 paroxetine HCl 10 mg tablet (Paxil) 10 mg PO DAILY #30 tabs 12/06/22 prednisone 20 mg tablet 20 mg PO BID #10 tabs 02/05/23 Allergies Allergy/AdvReac Type Severity Reaction Status Date / Time azithromycin [From Zithromax] Allergy Intermediate I-RASH Verified 12/06/22 15:51 cefixime [From Suprax] Allergy Unknown ITCHING,HIV Verified 12/06/22 15:51 ES latex Allergy Unknown VOMITING,SW Verified 12/06/22 15:51 ELLING tramadol Allergy Unknown I-RASH,HEAD Verified 12/06/22 15:51 ACHE PFSH PFSH Disclaimer: The information contained in this section may have been updated after the patient was seen, as this information can be updated by other users. 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 Surgical History H/O bladder repair surgery History of section History of cholecystectomy History of hysterectomy History of tonsillectomy Family History , BOXER OPERATOR) Diabetes Cancer Hypertension Social History Smoking Status: Current every day smoker tobacco type: cigarettes packs per day: 1 second hand exposure: No alcohol intake: never substance use type: denies use current occupational status: unemployed Travel in the last 8 weeks: None household members: other housing: house current occupation: [employer] current occupational exposures/hazards: No caffeine: Yes ROS Obtained: Yes Systems reviewed as appropriate & no additional complaints except as documented Neurologic Neurologic: Reports as per HPI and Reports paresthesias Physical Exam General General appearance: alert and in no apparent distress Head Head exam: atraumatic and normocephalic Eye Eye exam: Present PERRL and EOMI ENT ENT exam: Present normal exam Neck Neck exam: Present normal inspection Respiratory Respiratory exam: Present
[2023-03-26 21:00] VITALS: BP 101/63; PULSE 81; O2SAT 98
--- NOTE | 2023-03-26 21:00 | PC.NURSE ---
Rounded on pt. Pt advised head and neck were still hurting at this time.
--- NOTE | 2023-03-26 21:28 | PC.NURSE ---
PT provided with water
[2023-03-26 22:00] VITALS: BP 109/71; PULSE 68; O2SAT 97
--- NOTE | 2023-03-26 22:11 | PC.NURSE ---
Dr. Tidwell at [facility]
[2023-03-26 22:36] VITALS: BP 109/71; PULSE 65; RESP 16; TEMP 36.6; O2SAT 97
== END 2023-03-26 22:39 | disposition home or self-care (01) ==
PROVIDERS: Family Medicine; Emergency Provider Emergency Medicine; PCP Nurse Practitioner Family
DX: G43.909 Migraine, unspecified, not intractable, without status migrainosus (principal); M54.2 Cervicalgia; F17.210 Nicotine dependence, cigarettes, uncomplicated
CPT/HCPCS: 70450; 80053; 81001; 85025; 96361; 96374; 96375; 99284; 99285

== ENCOUNTER → 2023-07-10 12:52 | Outpatient (CLI) | payer OTHER, SELFPAY ==
--- NOTE | 2023-07-10 12:52 | US_ITS ---
PROCEDURE: US TRANSVAGINAL CLINICAL INDICATION: pelvic pain COMPARISON: No exams were available for comparison FINDINGS: Transvaginal sonographic images of the pelvis were obtained. UTERUS: Surgically absent. A at the vaginal vault there appears to be a thickening consistent with scar tissue or cervical remnant. LEFT OVARY: [id number] with a volume of 13.6ml. RIGHT OVARY: 5.7 cmx3.3 cm there are multiple follicles within the right ovary. Follicle 1. Measures 3.3 cm by 3.8 cm x 3.5 cm. There is a thin septum within the follicle. Follicle 2. Measures 1.7 cm x 1.6 cm by 1.6 cm. Both ovaries are seen and appear normal. Doppler flow to both ovaries are seen. There is no fluid in the cul-de-sac. IMPRESSION: 1. The uterus is surgically absent. 2. The vaginal vault appears to be thickened, possibly consistent with scar tissue or cervical remnant. 3. Both ovaries are seen and appear normal. 4. The right ovary has multiple follicles the largest of which is 3.8 cm. 5. No fluid in the cul-de-sac. Dictated by: Mike Yang MD 07/10/2023 16:46 Mike Yang MD in OV 07/10/2023 16:46
== END ==
PROVIDERS: PCP Nurse Practitioner Family; Visit Provider Obstetrics & Gynecology
DX: R10.2 Pelvic and perineal pain (principal)
CPT/HCPCS: 76830

== ENCOUNTER 2024-03-04 13:14 | Outpatient (CLI) | payer OTHER, SELFPAY ==
[2024-03-04 14:04] LABS: Basophils # 0.1 K/mm3 (0-0.2); Eosinophils # 0.1 K/mm3 (0.0-0.4); Eosinophils % 1.5 % (0.1-12.0); Hemoglobin 13.2 g/dL (12.2-16.2); Lymphocytes # 2.1 K/mm3 (0.7-4.5); Lymphocytes % 31.7 % (10-50); Mean Corpuscular HGB Conc 32.2 g/dL (31.8-35.4); Mean Corpuscular Hemoglobin 30.2 pg (27.0-31.2); Mean Corpuscular Volume 93.9 fl (81-99); Mean Platelet Volume 9.4 fl (7.4-10.4); Monocytes # 0.4 K/mm3 (0.1-1.0); Monocytes % 5.6 % (1.7-9.3); Neutrophils # 3.9 K/mm3 (1.8-7.8); Neutrophils % 60.2 % (37.0-80.0); Platelet Count 153 K/mm3 (142-424); Red Blood Count 4.37 M/mm3 (4.20-5.40); Red Cell Distribution Width 13.5 % (11.5-17.5); White Blood Count 6.5 K/mm3 (4.8-10.8)
[2024-03-04 14:43] LABS: Chloride 107 mmol/L (98-107); Potassium 4.1 mmoL/L (3.5-5.1); Sodium 137 mmol/L (136-145)
[2024-03-04 14:46] LABS: Alanine Aminotransferase 16 U/L (12-78); Albumin Level 4.2 g/dl (3.5-5.0); Alkaline Phosphatase 62 U/L (38-126); Anion Gap 6.1 mEq/L (5-15); Aspartate Amino Transferase 25 U/L (14-36); Bilirubin,Total 0.5 mg/dl (0.2-1.3); Blood Urea Nitrogen 9 mg/dl (7-17); Calcium 9.7 mg/dl (8.4-10.2); Carbon Dioxide 28 mmol/L (22.0-30.0); Estimated Glomerular Filt Rate 99 ml/min (>60); GFR (African American) 120 ML/MIN (>60); Globulin 2.1 g/dL (1.3-3.2); Glucose 85 mg/dl (74-100); Total Protein,Serum 6.3 g/dl (6.3-8.2)
[2024-03-04 15:09] LABS: HCG,Quantitative < 2 mIU/ml (0-5.42)
== END 2024-03-04 23:59 | disposition home or self-care (01) ==
LOC: LAB 13:15
PROVIDERS: PCP Nurse Practitioner Family; Visit Provider Obstetrics & Gynecology
DX: Z01.812 Encounter for preprocedural laboratory examination (principal); Z90.711 Acquired absence of uterus with remaining cervical stump; N73.9 Female pelvic inflammatory disease, unspecified
CPT/HCPCS: 36415; 80053; 84702; 85025; 86850

== ENCOUNTER 2024-03-05 07:57 | Day surgery (SDC) | payer OTHER, SELFPAY ==
[2024-03-01 16:54] VITALS: BMI 28.1
[2024-03-05] VITALS (10 sets, daily range): BP systolic 93–133; BP diastolic 46–85; PULSE 65–111; RESP 14–18; TEMP 36.4–36.7; O2SAT 92–99
[2024-03-05] MEDS: LACTATED RINGERS 1000ML 1,000 ML 25 ML IV (08:05)
--- NOTE | 2024-03-05 08:35 | EXP.ANES.CKL ---
[facility] Disclaimer: The information contained in this section may have been updated after the patient was seen, as this information can be updated by other users. Medical History Vaginal polyp Multiple sclerosis Hypertension Surgical History H/O bladder repair surgery placenta percreta History of hysterectomy -Hysterectomy History of tonsillectomy History of cholecystectomy History of section x2 Family History Other Cancer Diabetes Hypertension Social History Smoking Status: Current every day smoker tobacco type: e-cigarettes second hand exposure: No alcohol intake: never substance use type: denies use current occupational status: unemployed Travel in the last 8 weeks: None household members: other housing: house current occupation: [employer] current occupational exposures/hazards: No caffeine: Yes [facility] Anesthesia Checklist Patient Identification Patient Identification: Arm Band and Family Structural Data Admitted From: Home Planned Operative Procedure/s: Laparoscopic excision of cervical stump. Consent for Planned Operative Procedure(s) Verified: Yes Verified Documents: Surgical Consent and History and Physical NPO Status Verified Time NPO: 00:00 Additional verifications Patient : No Anesthesia Reactions: No Hx Blood Transfusions: Yes Blood Transfusion Reaction: No Cephalosporin Allergy: No Previous Colonoscopy: No Airway Assessment Mallampati Score:: Class II C-Spine Mobility Assessed: Yes TMJ Mobility Assessed: Yes Dentition: Good Dentition Neurological Assessment Level of Consciousness: Alert, Appropriate and Follows Commands Hx Seizures: No Numbness or tingling in extremities: No Anesthesia Plan Anesthesia Risk discussed: Yes ASA Class: II Anesthesia Type: General Preoperative Comments Pre-Operative Comments: Mitral valve prolapse. Hypetension, on lisinopril. IBS
[2024-03-05] MEDS: METRONIDAZ/SOD CHL 500 MG/100 ML PIGGYBACK 100 MG IV (09:15)
[2024-03-05] MEDS: LIDOCAINE 1% 20ML MDV 20 ML (09:30)
[2024-03-05] MEDS: ROPIVACAINE 0.5% 30ML VIAL 150 MG (09:38)
[2024-03-05] MEDS: LIDOCAINE 1% W/EPI 1:100,000 20ML VIAL 20 ML (09:38)
--- NOTE | 2024-03-05 10:05 | P.PNANES_ITS ---
[facility] Anesthesia Record Part I Anesthesia Record I Intake, IV Amount: 450 Hydration: Adequate Estimated blood loss (mL): 10 Urine output (mL): 0 Blood Products used (#): none Blood Pressure: 133/85 SaO2: 95 Pulse Rate: 106 Airway Patency: Patent Respiratory Rate: 16 Temperature: 97.5 F Patient is:: Drowsy and Stable Stable to PACU at:: 09:55
--- NOTE | 2024-03-05 10:07 | P.OP_ITS ---
Date of procedure: 03/05/24 Pre-op Diagnosis:: 1. Dyspareunia 2. Pelvic pain Post-op Diagnosis:: 1. Dyspareunia 2. Pelvic pain Procedure performed:: 1. Diagnostic laparoscopy 2. Lysis of adhesions 3. Vaginal excision of mass Surgeon:: Maria L Fischer DO Sales Development Director(s):: Mike Yang MD SENIOR DIRECTOR:: Melvin Carver Anesthesia: GETA Estimated blood loss (mL): 10 Operative findings:: 1. Bimanual examination revealed a palpable vaginal polyp which was visualized on speculum exam 2. Laparoscopic exam extensive dense adhesions of the bowel to the anterior abdominal wall. On careful examination it was not just the omentum or coag it was the actual bowel but was involved in the adhesion. There are adhesions just inferior to the entry point at the umbilicus. It appeared that the pelvic area was mostly free of bowel adhesions. There were bladder and peritoneal adhesions in the pelvis. There is also endometriosis noted on the colon and in the pelvis. The ovaries were not visualized on exam. Operative note:: The patient was taken to the operating room where general anesthesia was obtained and noted to be adequate. SCDs were placed for thromboembolism prophyl axis and found to be working. The patient was placed in the dorsal lithotomy position using yellowfin stirrups. Timeout verified the correct patient and procedure. The patient was prepped and draped in a usual sterile fashion. A catheter was used to drain her bladder. A sponge stick was placed vaginally. 10mL of Lidocaine was injected infraumbilically and a scalpel was used to make a 5 mm infraumbilical incision with the assistance from a hemostat. The skin was tented and Optiview blunt trocar was introduced into the abdomen in the usual fashion. CO2 gas was connected with an initial pressure of 6 mmHg noted. Pneumoperitoneum was created to a pressure of 15 mmHg. The laparoscopic camera was inserted and a quick survey of the abdomen revealed above documented anatomy. The patient was placed in Trendelenburg. 10mLs of local anesthetic was injected and a 5mm incision was then made in the right lower quadrant with careful attention to avoid the rectus muscles and vasculature and under direct laparoscopic visualization a blunt trocar was introduced into the abdominal cavity. This was used to carefully take down some filmy adhesions and evaluate the denser adhesions to the anterior abdominal wall. The pelvis was evaluated and noted to be free of any bowel adhesions and it was felt safe to proceed with vaginal excision of the mass/polyp. There was noted to be endometriosis in the pelvis and on the bowel. Hemostasis was noted in all operative areas. Trocars were removed and the pneumoperitoneum was reduced. Abdominal incisions were closed with 4-0 Monocryl and Dermabond. Attention was turned vaginally and the vaginal polyp was identified and grasped with an Allis. 1% lidocaine with epinephrine, 10 mL was injected circumferentially and the vaginal polyp was sharply dissected away from the vaginal wall. There was only a small amount of bleeding in this area was closed in a running locking fashion with 0 Vicryl. Hemostasis was noted. Vaginal mass was sent to pathology for further evaluation. All counts were correct x2, per nursing. The patient was extubated, stable, and transferred to the PACU. She will be discharged after meeting all DC criteria to include voiding, ambulating and tolerating PO independently. Condition: stable Disposition: same day Specimens:: Vaginal polyp/mass Complications:: None
[2024-03-05] MEDS: HYDROMORPHONE 2MG/ML SYRINGE 0.5 MG IV ×4 (10:09→10:24)
[2024-03-05] MEDS: ONDANSETRON 4MG/2ML VIAL 4 MG IV (10:15)
[2024-03-05] MEDS: MEPERIDINE 25MG/ML 1ML SYRINGE 12.5 MG IV (10:29)
--- NOTE | 2024-03-06 11:34 | EXP.ANES.II ---
[facility] Anesthesia Record Part II Anesthesia Record Part II Discharge Time: 10:35 Destination: Surgical Day Care (OP Surgery) PACU nurse assessment reviewed?: Yes Patient Condition:: Good Anesthesia Complications:: None Swallowing reflex intact?: Yes Airway Patency: Patent Cyanosis?: No Blood Pressure: 106/67 SaO2: 94 Respiratory Rate: 17 Pulse Rate: 79 Temperature: 97.7 F Mental Status: Alert & Oriented Pain level:: 6 Nausea and/or vomitting:: None Intake, IV Amount: 0 Hydration: Adequate
[2024-03-06 11:35] VITALS: BP 106/67; PULSE 79; RESP 17; TEMP 36.5; O2SAT 94
== END 2024-03-05 11:20 | disposition home or self-care (01) ==
PROVIDERS: PCP Nurse Practitioner Family; Visit Provider Obstetrics & Gynecology
PROC: (CPT 49320; principal; 2024-03-05 09:15)
DX: N94.10 Unspecified dyspareunia (principal); R10.2 Pelvic and perineal pain; K66.0 Peritoneal adhesions (postprocedural) (postinfection); N73.6 Female pelvic peritoneal adhesions (postinfective); N80.559 Endometriosis of other parts of the colon, unspecified depth; N84.2 Polyp of vagina
CPT/HCPCS: 49320; 49329; 57135; 96374; J3490; J2405

== ENCOUNTER 2024-06-05 10:19 | Emergency (ER) | payer OTHER, SELFPAY ==
[2024-06-05 10:19] VITALS: BP 130/90; PULSE 109; RESP 16; TEMP 36.8; O2SAT 100; BMI 30.2
--- NOTE | 2024-06-05 10:19 | ECG_ITS ---
APPROVED REPORT Exam: Resting ECG HR:107 bpm ECG Measurements Heart Rate 107 AXES OR 114 P 51 QRSd 84 QRS 17 QT 328 T 6 QTc 391 Conclusion SINUS TACHYCARDIA WITH SHORT OR INTERVAL NONSPECIFIC T-WAVE ABNORMALITY ABNORMAL RHYTHM ECG Electronically signed by : DYLAN CASTILLO, 06/06/2024 04:35:38
[2024-06-05 10:21] VITALS: BMI 30.2
--- NOTE | 2024-06-05 10:22 | XR_ITS ---
FINAL REPORT CLINICAL HISTORY: Precordial chest pain COMPARISON: 06/24/2020 FINDINGS: PA and lateral views of the chest were obtained. The cardiac and mediastinal silhouettes are within normal limits. There is evidence of prior granulomatous disease. Right middle lobe opacity could represent atelectasis or pneumonia.. There is no pleural effusion or pneumothorax. No acute osseous abnormality is identified. IMPRESSION: Right middle lobe opacity could represent atelectasis or pneumonia. Reviewed, Interpreted and Dictated by Becky Ojeda MD Transcribed by Mildred Chapman Authenticated and [facility]
--- NOTE | 2024-06-05 10:23 | ED_ITS ---
Discharge Plan Disposition Patient Disposition: Home, Self-Care Condition: Good Prescriptions Prescriptions: New doxycycline hyclate 100 mg capsule 100 mg PO BID 7 Days Qty: 14 0RF No Action paroxetine HCl 30 mg tablet 30 mg PO DAILY lisinopril 10 mg tablet 10 mg PO DAILY dextroamphetamine-amphetamine [Adderall] 5 mg tablet 5 mg PO BID doxycycline hyclate 100 mg tablet 100 mg PO BID Qty: 14 0RF dextromethorphan-guaifenesin 20-400 mg tablet 1 tab PO Q4H PRN (Reason: cough) Qty: 14 0RF Referrals Follow up/Referrals: Leon Smallwood MD [Primary Care Provider] - See instructions Activity Restrictions/Add. Instructions Additional Instructions/Restrictions: I have prescribed antibiotics for what appears to be a pneumonia on your chest x-ray. Please continue to drink plenty of liquids. Please return with any new or worsening symptoms. Clinical Impressions Clinical Impression: Pneumonia Discharge ED Provider: Hema Prado General Adult HPI General Chief complaint: Chest Pain Stated complaint: chest pain Time Seen by Provider: 06/05/24 10:23 History of Present Illness HPI narrative: The patient presents with a chief complaint of cough and sore throat since Monday. They report feeling lightheaded and shaky at work today. The patient has been experiencing diarrhea and is unsure if they have had any fevers. They describe the cough as tasting like bronchitis. Associated symptoms include mild sore throat. The patient reports having heartburn and mild nonradiating burning intermittent belly pain. Patient has had sick contact of child, no recent travel, no diplopia, no numbness or tingling no hemoptysis, no leg pain, no leg swelling, or recent injury. No blood in diarrhea, patient has been able to tolerate p.o. intake, no reported previous therapies today. Please note that above description of symptoms, in this electronic medical record under categorization of recalled from ER triage doctor by RN are reflective of an initial nursing assessment, however, is not reflective of my full history and physical exam that was personally taken and clarified. Consequentially, this preceding description of symptoms, which may include the patient's categorized chief complaint in the EMR, do not reflect my personal clinical impression, and the ultimate description of history of present illness and patient stated complaints should be deferred to this section of the note. Unless stated otherwise or congruent with this section of the note, additional signs, symptoms, or incongruence should be interpreted as inaccurate with my clinical impression. Related Data Home Medications Medication Instructions Recorded Confirmed lisinopril 10 mg tablet 10 mg PO DAILY 12/20/23 06/03/24 paroxetine HCl 30 mg tablet 30 mg PO DAILY 12/20/23 06/03/24 dextroamphetamine-amphetamine 5 mg 5 mg PO BID 03/21/24 06/03/24 tablet (Adderall) Previous Rx's Medication Instructions Recorded dextromethorphan-guaifenesin 20 1 tab PO Q4H PRN cough #14 tabs 06/03/24 mg-400 mg tablet doxycycline hyclate 100 mg tablet 100 mg PO BID #14 tabs 06/03/24 doxycycline hyclate 100 mg capsule 100 mg PO BID 7 days #14 caps 06/05/24 Allergies Allergy/AdvReac Type Severity Reaction Status Date / Time azithromycin [From Zithromax] Allergy Intermediate I-RASH Verified 06/03/24 11:09 cefixime [From Suprax] Allergy Unknown ITCHING,HIV Verified 06/03/24 11:09 ES latex Allergy Unknown VOMITING,SW Verified 06/03/24 11:09 ELLING tramadol Allergy Unknown I-RASH,HEAD Verified 06/03/24 11:09 ACHE PFSH PFSH Disclaimer: The information contained in this section may have been updated after the patient was seen, as this information can be updated by other users. Medical History Vaginal polyp Multiple sclerosis Hypertension Surgical History History of laparoscopy lysis of adhesions H/O bladder repair surgery placenta percreta History of hysterectomy -Hysterectomy History of tonsillectomy History of cholecystectomy History of section x2 Family History Other Cancer Diabetes Hypertension Social History Smoking Status: Current every day smoker tobacco type: e-cigarettes second hand exposure: No alcohol intake: never substance use type: denies use current occupational status: unemployed Travel in the last 8 weeks: None household members: other housing: house current occupation: [employer] current occupational exposures/hazards: No caffeine: Yes ROS Obtained: Yes other As per HPI Physical Exam General General appearance: alert and anxious Head Head exam: atraumatic and normocephalic Eye Eye exam: Present normal appearance Neck Neck exam: Present normal inspection Chest Chest inspection: Present normal inspection and symmetric chest wall rise Respiratory Respiratory exam: Present other (Scattered rhonchi); Absent respiratory distress Cardiovascular Cardiovascular exam: Present regular rate and normal rhythm Abdominal Exam Abdominal exam: Present soft Neurological Exam Neurological exam: Present alert, oriented X3 and CN II-XII intact Psychiatric Psychiatric exam: Present normal affect and normal mood Skin Skin exam: Present warm and dry Medical Decision Making Medical Records Medical records reviewed: Yes I reviewed the patient's medical records. Kamari Inquiry Pt receiving controlled substance: No Vital Signs: 06/05/24 10:19 06/05/24 10:30 06/05/24 11:30 Temperature 98.2 F Temperature Source Oral Pulse Rate 86 104 H Pulse Rate [Left Radial] 109 H Respiratory Rate 16 15 Blood Pressure 113/77 136/94 H Blood Pressure [Right Arm] 130/90 Blood Pressure Mean 108 Blood Pressure Mean [Right Arm] 103 Blood Pressure Source Blood Pressure Position 02 Sat by Pulse Oximetry 100 99 100 Oxygen Delivery Method Room Air 06/05/24 12:31 06/05/24 13:00 06/05/24 13:25 Temperature 98.1 F Temperature Source Oral Pulse Rate 95 H 85 82 Pulse Rate [Left Radial] Respiratory Rate 19 16 16 Blood Pressure 99/74 L 104/69 L 104/69 L Blood Pressure [Right Arm] Blood Pressure Mean Blood Pressure Mean [Right Arm] Blood Pressure Source Automatic Cuff Blood Pressure Position Supine 02 Sat by Pulse Oximetry 99 99 Oxygen Delivery Method Room Air Lab Data Lab Results 06/05/24 10:24: WBC 8.7, RBC 4.26, Hgb 13.3, Hct 38.8, MCV 91.1, MCH 31.1, MCHC 34.1, RDW 14.2, Plt Count 172, MPV 8.2, Neut % (Auto) 65.7, Lymph % (Auto) 26.7, [place] % (Auto) 4.7, Eos % (Auto) 1.8, Baso % (Auto) 1.0, Neut # (Auto) 5.7, Lymph # (Auto) 2.3, [place] # (Auto) 0.4, Eos # (Auto) 0.2, Baso # (Auto) 0.1, Sodium 142, Potassium 3.6, Chloride 108 H, Carbon Dioxide 24, Anion Gap 13.6, BUN 14, Creatinine 0.80, Estimated Creat Clear 103, Estimated GFR 84, Est GFR ( Amer) 102, Glucose 79, Calcium 9.7, Total Bilirubin 0.3, AST 35, ALT 38, Alkaline Phosphatase 57, Total Protein 7.1, Albumin 4.4, Globulin 2.7, Albumin/Globulin Ratio 1.6, Lipase 109, Serum HCG, Qual Negative 06/05/24 11:14: SARS-CoV-2 (PCR) Not detected, Influenza A Untype (PCR) Not detected, Influenza Type B (PCR) Not detected 06/05/24 10:24 06/05/24 10:24 Orders (Tests/Meds): ED MEDICATIONS Discontinued Medications Generic Name Dose Route Start Last Admin Trade Name Freq PRN Reason Stop Dose Admin Aspirin 324 mg 06/05/24 10:23 06/05/24 10:31 Aspirin 81mg Chewable Tablet PO 06/05/24 10:24 324 mg ONCE ONE Administration Belladonna Alkaloids 60 ml 06/05/24 10:22 06/05/24 10:31 Belladonna Alkaloids 60 Ml Ml PO 06/05/24 10:23 60 ml ONCE ONE Administration Famotidine 20 mg 06/05/24 10:22 06/05/24 10:31 Famotidine 20mg/2ml Vial IV 06/05/24 10:23 20 mg ONCE ONE Administration Hydroxyzine Pamoate 25 mg 06/05/24 11:28 06/05/24 11:39 Hydroxyzine Pamoate 25mg Capsule PO 06/05/24 11:29 25 mg ONCE ONE Administration Lactated Ringer's 1,000 mls @ 999 mls/hr 06/05/24 11:00 06/05/24 11:03 Lactated Ringer's 1000 Ml Bag IV 06/05/24 12:00 999 mls/hr .Q1H1M ONE Administration Sodium Chloride 10 ml 06/05/24 10:22 Sodium Chloride 0.9% 10ml Flush Syringe IV 07/05/24 10:21 NEEDED PRN Maintain IV Site Sodium Chloride 8 ml 06/05/24 10:22 Sodium Chloride 0.9% 10ml Vial IV 07/05/24 10:21 NEEDED PRN dilute pepcid ORDERS Category Date Time Status XR chest 2V Stat Exams 06/05/24 10:22 Completed Complete Blood Count Auto Diff Stat Lab 06/05/24 10:24 Completed Comprehensive Metabolic Panel Stat Lab 06/05/24 10:24 Completed Lipase Stat Lab 06/05/24 10:24 Completed Rapid PCR Covid and Flu A/B Stat Lab 06/05/24 11:14 Completed Serum Beta HCG [HCG Qualitative, Serum] Stat Lab 06/05/24 10:24 Completed Medical Decision Narrative: Patient with history and exam per above presenting for evaluation of upper respiratory symptoms, cough, diarrhea, in the setting of sick contacts, denying any chest pain. Diagnoses considered include pneumonia, bronchitis, COVID-19, no clinical evidence or historical features at this time to warrant further workup beyond history and physical exam for ACS, pulmonary embolism, complication of reported history of multiple sclerosis. ED workup and treatment included: ED MEDICATIONS Discontinued Medications Generic Name Dose Route Start Last Admin Trade Name Freq PRN Reason Stop Dose Admin Aspirin 324 mg 06/05/24 10:23 06/05/24 10:31 Aspirin 81mg Chewable Tablet PO 06/05/24 10:24 324 mg ONCE ONE Administration Belladonna Alkaloids 60 ml 06/05/24 10:22 06/05/24 10:31 Belladonna Alkaloids 60 Ml Ml PO 06/05/24 10:23 60 ml ONCE ONE Administration Famotidine 20 mg 06/05/24 10:22 06/05/24 10:31 Famotidine 20mg/2ml Vial IV 06/05/24 10:23 20 mg ONCE ONE Administration Hydroxyzine Pamoate 25 mg 06/05/24 11:28 06/05/24 11:39 Hydroxyzine Pamoate 25mg Capsule PO 06/05/24 11:29 25 mg ONCE ONE Administration Lactated Ringer's 1,000 mls @ 999 mls/hr 06/05/24 11:00 06/05/24 11:03 Lactated Ringer's 1000 Ml Bag IV 06/05/24 12:00 999 mls/hr .Q1H1M ONE Administration Sodium Chloride 10 ml 06/05/24 10:22 Sodium Chloride 0.9% 10ml Flush Syringe IV 07/05/24 10:21 NEEDED PRN Maintain IV Site Sodium Chloride 8 ml 06/05/24 10:22 Sodium Chloride 0.9% 10ml Vial IV 07/05/24 10:21 NEEDED PRN dilute pepcid ORDERS Category Date Time Status XR chest 2V Stat Exams 06/05/24 10:22 Completed Complete Blood Count Auto Diff Stat Lab 06/05/24 10:24 Completed Comprehensive Metabolic Panel Stat Lab 06/05/24 10:24 Completed Lipase Stat Lab 06/05/24 10:24 Completed Rapid PCR Covid and Flu A/B Stat Lab 06/05/24 11:14 Completed Serum Beta HCG [HCG Qualitative, Serum] Stat Lab 06/05/24 10:24 Completed Patient did experience reported fall, nonsyncopal in nature upon transport to x- ray. I reassessed her at this time. She was very anxious but denied any headache, denies any focal numbness or tingling or motor weakness on exam however did report some transient paresthesias in her left lower extremity that resolved upon repeat evaluation. No external evidence of trauma on my exam. Labs were independently interpreted by me, significant for no acute findings Imaging was independently visualized and interpreted by me, significant for concern for lobar pneumonia Please refer to radiology report for full details. My clinical impression at this time is most consistent with upper respiratory infection, pneumonia I discussed my clinical impression with patient and answered all questions. At this time, the evidence for any other entities in the differential is insufficient to warrant any further testing or ED observation. This was explained to the patient. The patient was advised that persistent or worsening symptoms require further evaluation. I confirmed the patient's understanding of this discussion. Critical Care Critical Care Time Critical Care Time: No
[2024-06-05 10:30] VITALS: BP 113/77; PULSE 86; RESP 15; O2SAT 99
[2024-06-05] MEDS: BELLADONNA ALKALOIDS 60 ML ML PO (10:31)
[2024-06-05] MEDS: FAMOTIDINE 20MG/2ML VIAL 20 MG IV (10:31)
[2024-06-05] MEDS: ASPIRIN 81MG CHEWABLE TABLET 324 MG PO (10:31)
[2024-06-05 10:32] LABS: Basophils # 0.1 K/mm3 (0-0.2); Eosinophils # 0.2 K/mm3 (0.0-0.4); Eosinophils % 1.8 % (0.1-12.0); Hematocrit 38.8 % (37.0-47.0); Hemoglobin 13.3 g/dL (12.2-16.2); Lymphocytes # 2.3 K/mm3 (0.7-4.5); Lymphocytes % 26.7 % (10-50); Mean Corpuscular HGB Conc 34.1 g/dL (31.8-35.4); Mean Corpuscular Hemoglobin 31.1 pg (27.0-31.2); Mean Corpuscular Volume 91.1 fl (81-99); Mean Platelet Volume 8.2 fl (7.4-10.4); Monocytes # 0.4 K/mm3 (0.1-1.0); Monocytes % 4.7 % (1.7-9.3); Neutrophils # 5.7 K/mm3 (1.8-7.8); Neutrophils % 65.7 % (37.0-80.0); Platelet Count 172 K/mm3 (142-424); Red Blood Count 4.26 M/mm3 (4.20-5.40); Red Cell Distribution Width 14.2 % (11.5-17.5); White Blood Count 8.7 K/mm3 (4.8-10.8)
[2024-06-05 10:37] LABS: Chloride 108 mmol/L (98-107); Potassium 3.6 mmoL/L (3.5-5.1); Sodium 142 mmol/L (136-145)
[2024-06-05 10:39] LABS: Blood Urea Nitrogen 14 mg/dl (7-17); Creatinine Clearance Estimated 103 mL/min (50-200); Estimated Glomerular Filt Rate 84 ml/min (>60); GFR (African American) 102 ML/MIN (>60)
[2024-06-05 10:40] LABS: Alanine Aminotransferase 38 U/L (12-78); Albumin Level 4.4 g/dl (3.5-5.0); Albumin/Globulin Ratio 1.6 (1.1-1.8); Alkaline Phosphatase 57 U/L (38-126); Anion Gap 13.6 mEq/L (5-15); Aspartate Amino Transferase 35 U/L (14-36); Bilirubin,Total 0.3 mg/dl (0.2-1.3); Calcium 9.7 mg/dl (8.4-10.2); Carbon Dioxide 24 mmol/L (22.0-30.0); Globulin 2.7 g/dL (1.3-3.2); Glucose 79 mg/dl (74-100); Total Protein,Serum 7.1 g/dl (6.3-8.2)
[2024-06-05 10:51] LABS: Lipase 109 U/L (23-300)
[2024-06-05 10:55] LABS: HCG Qualitative, Serum Negative (Negative)
[2024-06-05] MEDS: LACTATED RINGERS 1000ML 1,000 ML 999 ML IV (11:03)
--- NOTE | 2024-06-05 11:15 | PC.NURSE ---
pt states that her whole left arm and leg went numb that it feels really heavy while she was in xray. Pt is able to lift her leg and hold it but states that it just feels heavy, aware, per radiology pt sit down in xray while getting a test, pt states that she has ms but is worried that her whole left side is numb.
[2024-06-05 11:17] LABS: Coronavirus 19, PCR Not Detected (NotDetected); Influenza A, PCR Not Detected (NotDetected); Influenza B, PCR Not Detected (NotDetected)
[2024-06-05 11:30] VITALS: BP 136/94; PULSE 104; O2SAT 100
[2024-06-05] MEDS: hydrOXYzine pamoate 25MG CAPSULE 25 MG PO (11:39)
[2024-06-05 12:31] VITALS: BP 99/74; PULSE 95; RESP 19; O2SAT 99
[2024-06-05 13:00] VITALS: BP 104/69; PULSE 85; RESP 16; O2SAT 99
[2024-06-05 13:25] VITALS: BP 104/69; PULSE 82; RESP 16; TEMP 36.7; O2SAT 99
== END 2024-06-05 13:26 | disposition home or self-care (01) ==
PROVIDERS: Emergency Provider Emergency Medicine; PCP Internal Medicine Adolescent Medicine
DX: J18.9 Pneumonia, unspecified organism (principal); R05.9 Cough, unspecified; R07.0 Pain in throat; F17.290 Nicotine dependence, other tobacco product, uncomplicated
CPT/HCPCS: 71046; 80053; 83690; 84703; 85025; 87636; 93005; 96361; 96374; 99284; J7120; S0028

== ENCOUNTER 2024-07-08 11:50 | Emergency (ER) | payer OTHER, SELFPAY ==
[2024-07-08 11:51] VITALS: BP 152/85; PULSE 96; RESP 18; TEMP 36.7; O2SAT 99; BMI 28.1
--- NOTE | 2024-07-08 12:26 | PC.NURSE ---
Dr. leyva at [facility] for pt eval
--- NOTE | 2024-07-08 12:34 | HMH.EDGENADL ---
Discharge Plan Disposition Patient Disposition: Home, Self-Care Prescriptions Prescriptions: No Action paroxetine HCl 30 mg tablet 30 mg PO DAILY lisinopril 10 mg tablet 10 mg PO DAILY dextroamphetamine-amphetamine [Adderall] 5 mg tablet 5 mg PO BID doxycycline hyclate 100 mg tablet 100 mg PO BID Qty: 14 0RF dextromethorphan-guaifenesin 20-400 mg tablet 1 tab PO Q4H PRN (Reason: cough) Qty: 14 0RF doxycycline hyclate 100 mg capsule 100 mg PO BID 7 Days Qty: 14 0RF Referrals Follow up/Referrals: Leon Smallwood MD [Primary Care Provider] - See instructions Clinical Impressions Clinical Impression: Migraine Print Language Print Language: American Discharge ED Provider: Boris Jauregui General Adult HPI General Chief complaint: Headache Stated complaint: migraine Time Seen by Provider: 07/08/24 12:24 Mode of Arrival: Ambulatory Source of Information: Patient Limitations: No Limitations Description of Symptoms (Recalled from ER Triage Doc. by RN): Patient reports having a migraine. States it started a couple of days ago and just continued to get worse. States she has had migraines in the past. History of Present Illness HPI narrative: Patient is a 29-year-old female presented with a headache. States has been ongoing for about 48 hours and slowly progressively worsening. No sudden component to this. She does have a history of migraines and states that she has no acute neurologic symptoms such as numbness weakness tingling in arms or legs or any other focal neurologic deficits. She does have MS and has had some blurred vision in the past. Denies any fevers or neck stiffness. 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 Specifically she is concerned about a cerebral aneurysm because she looked this up online and got concerned. Related Data Home Medications ?Medication ?Instructions ?Recorded ?Confirmed lisinopril 10 mg tablet 10 mg PO DAILY 12/20/23 06/03/24 paroxetine HCl 30 mg tablet 30 mg PO DAILY 12/20/23 06/03/24 dextroamphetamine-amphetamine 5 mg 5 mg PO BID 03/21/24 06/03/24 tablet (Adderall) Previous Rx's ?Medication ?Instructions ?Recorded dextromethorphan-guaifenesin 20 1 tab PO Q4H PRN cough #14 tabs 07/15/24 mg-400 mg tablet doxycycline hyclate 100 mg tablet 100 mg PO BID #14 tabs 06/03/24 doxycycline hyclate 100 mg capsule 100 mg PO BID 7 days #14 caps 06/05/24 Allergies Allergy/AdvReac Type Severity Reaction Status Date / Time azithromycin [From Zithromax] Allergy Intermediate I-RASH Verified 06/03/24 11:09 cefixime [From Suprax] Allergy Unknown ITCHING,HIV Verified 06/03/24 11:09 ES latex Allergy Unknown VOMITING,SW Verified 06/03/24 11:09 ELLING tramadol Allergy Unknown I-RASH,HEAD Verified 06/03/24 11:09 ACHE PFSH PFSH Disclaimer: The information contained in this section may have been updated after the patient was seen, as this information can be updated by other users. Medical History Vaginal polyp Multiple sclerosis Hypertension Surgical History History of laparoscopy lysis of adhesions H/O bladder repair surgery placenta percreta History of hysterectomy -Hysterectomy History of tonsillectomy History of cholecystectomy History of section x2 Family History Other Cancer Diabetes Hypertension Social History Smoking Status: Current every day smoker tobacco type: e-cigarettes second hand exposure: No alcohol intake: never substance use type: denies use current occupational status: unemployed Travel in the last 8 weeks: None household members: other housing: house current occupation: [employer] current occupational exposures/hazards: No caffeine: Yes ROS Obtained: Yes All systems reviewed & no additional complaints except as documented Physical Exam General General appearance: alert and in no apparent distress Neck Neck exam: Absent tenderness Respiratory Respiratory exam: Present normal lung sounds bilaterally Cardiovascular Cardiovascular exam: Present regular rate Neurological Exam Neurological exam: Present alert, oriented X3, CN II-XII intact and normal gait; Absent motor sensory deficit Medical Decision Making Kamari Inquiry Pt receiving controlled substance: No Kamari was queried for this patient: No Vital Signs: 07/08/24 11:51 Temperature 98.0 F Temperature Source Oral Pulse Rate [Radial] 96 H Respiratory Rate 18 Blood Pressure [Right Arm] 152/85 H Blood Pressure Mean [Right Arm] 107 Blood Pressure Source [Right Arm] Automatic Cuff Blood Pressure Position [Right Arm] Sitting 02 Sat by Pulse Oximetry 99 Oxygen Delivery Method Room Air Orders (Tests/Meds): ED MEDICATIONS Generic Name Dose Route Start Last Admin Trade Name Freq PRN Reason Stop Dose Admin Lactated Ringer's 1,000 mls @ 999 mls/hr 07/08/24 12:45 07/08/24 12:52 Lactated Ringer's 1000 Ml Bag IV 07/08/24 13:45 999 mls/hr .Q1H1M KEIKO Administration Discontinued Medications Generic Name Dose Route Start Last Admin Trade Name Freq PRN Reason Stop Dose Admin Acetaminophen 1,000 mg 07/08/24 12:31 07/08/24 12:51 Acetaminophen 500mg Tab PO 07/08/24 12:32 1,000 mg ONCE ONE Administration Ketorolac Tromethamine 15 mg 07/08/24 12:31 07/08/24 12:51 Ketorolac 30mg/Ml Vial IV 07/08/24 12:32 15 mg ONCE ONE Administration Ondansetron HCl 4 mg 07/08/24 12:31 07/08/24 12:52 Ondansetron 4mg/2ml Vial IV 07/08/24 12:32 4 mg ONCE ONE Administration Medical Decision Narrative: 29-year-old female GCS of 15 normal neurologic exam nonfocal presents today with a headache that slowly worsening over the last 2 days most likely consistent with a recurrent migraine. I believe she is low risk for space-occupying lesion meningitis subarachnoid hemorrhage etc. No indication for CT imaging. I offered her migraine cocktail with Toradol Compazine and Benadryl however she does not want any sedating medications so we will do a modified cocktail including IV Toradol fluids Zofran and give her oral Tylenol. Plan will reassess. Reassessment 1:30 PM patient feeling much better serial neurologic exams nonfocal. She has been advised to follow-up with her primary care doctor and discuss with them suppressive medications for her migraines and to return with any significant worsening of her symptoms. Critical Care Critical Care Time Critical Care Time: No
[2024-07-08] MEDS: ACETAMINOPHEN 500MG TAB 1000 MG PO (12:51)
[2024-07-08] MEDS: KETOROLAC 30MG/ML VIAL 15 MG IV (12:51)
[2024-07-08] MEDS: LACTATED RINGERS 1000ML 1,000 ML 999 ML IV (12:52)
[2024-07-08] MEDS: ONDANSETRON 4MG/2ML VIAL 4 MG IV (12:52)
[2024-07-08 13:36] VITALS: BP 140/81; PULSE 82; RESP 14; TEMP 36.7; O2SAT 99
== END 2024-07-08 13:37 | disposition home or self-care (01) ==
PROVIDERS: Emergency Provider Student in an Organized Health Care Education/Training Program; PCP Internal Medicine Adolescent Medicine
DX: G43.909 Migraine, unspecified, not intractable, without status migrainosus (principal)
CPT/HCPCS: 96361; 96374; 96375; 99284; J1885; J2405; J7120

== ENCOUNTER 2024-08-09 13:39 | Outpatient (CLI) | payer OTHER, SELFPAY ==
[2024-08-09 14:21] LABS: Basophils % 0.6 % (0.1-2.0); Eosinophils # 0.1 K/mm3 (0.0-0.4); Eosinophils % 2.3 % (0.1-12.0); Hematocrit 41.8 % (37.0-47.0); Hemoglobin 13.4 g/dL (12.2-16.2); Lymphocytes # 2.1 K/mm3 (0.7-4.5); Lymphocytes % 33.9 % (10-50); Mean Corpuscular HGB Conc 32.2 g/dL (31.8-35.4); Mean Corpuscular Hemoglobin 30.4 pg (27.0-31.2); Mean Corpuscular Volume 94.3 fl (81-99); Mean Platelet Volume 8.7 fl (7.4-10.4); Monocytes # 0.4 K/mm3 (0.1-1.0); Neutrophils # 3.5 K/mm3 (1.8-7.8); Neutrophils % 57.2 % (37.0-80.0); Platelet Count 189 K/mm3 (142-424); Red Blood Count 4.43 M/mm3 (4.20-5.40); Red Cell Distribution Width 13.4 % (11.5-17.5); White Blood Count 6.1 K/mm3 (4.8-10.8)
[2024-08-09 14:34] LABS: Hemoglobin A1C 5.1 % (4.0-6.0)
[2024-08-09 14:36] LABS: Alanine Aminotransferase 21 U/L (12-78); Albumin Level 4.4 g/dl (3.5-5.0); Albumin/Globulin Ratio 2.1 (1.1-1.8); Alkaline Phosphatase 47 U/L (38-126); Anion Gap 11.6 mEq/L (5-15); Aspartate Amino Transferase 25 U/L (14-36); Bilirubin,Total 0.4 mg/dl (0.2-1.3); Blood Urea Nitrogen 8 mg/dl (7-17); Calcium 9.6 mg/dl (8.4-10.2); Carbon Dioxide 23 mmol/L (22.0-30.0); Chloride 108 mmol/L (98-107); Chol/HDL Ratio 4.7 (1-3.5); Cholesterol 191 mg/dl (140-200); Estimated Glomerular Filt Rate 98 ml/min (>60); GFR (African American) 119 ML/MIN (>60); Globulin 2.1 g/dL (1.3-3.2); Glucose 92 mg/dl (74-100); HDL Cholesterol 41 mg/dl (40-60); Potassium 3.6 mmoL/L (3.5-5.1); Sodium 139 mmol/L (136-145); Total Protein,Serum 6.5 g/dl (6.3-8.2); Triglycerides 212 mg/dl (30-150); VLDL Cholesterol 42 mg/dL (0-40)
[2024-08-09 14:47] LABS: Direct LDL Cholesterol 96.89 mg/dL (100-129)
[2024-08-09 14:53] LABS: 25-OH Vitamin D, Total 38.6 ng/mL (30-100)
[2024-08-09 15:06] LABS: Thyroid Stimulating Hormone 0.71 uIU/mL (0.465-4.68)
[2024-08-10 09:32] LABS: Estradiol 48.9 pg/mL (.); FSH 5.2 mIU/mL (.); Prolactin 36.8 ng/mL (4.8-33.4)
[2024-08-12 14:58] LABS: Anti-Centromere B Antibodies <0.2 AI (0.0-0.9); Anti-DNA (DS) Ab Qn <1 IU/mL (0-9); Anti-Jo-1 <0.2 AI (0.0-0.9); Anti-Smith Antibody <0.2 AI (0.0-0.9); Antichromatin Antibodies <0.2 AI (0.0-0.9); Antiscleroderma-70 Antibodies <0.2 AI (0.0-0.9); RNP Antibodies <0.2 AI (0.0-0.9); Sjogren's Anti-SS-A <0.2 AI (0.0-0.9); Sjogren's Anti-SS-B <0.2 AI (0.0-0.9)
[2024-08-19 21:08] LABS: Testosterone, Total, LC/MS 19 ng/dL (.)
== END 2024-08-09 23:59 | disposition home or self-care (01) ==
LOC: LAB 13:41
PROVIDERS: PCP Student in an Organized Health Care Education/Training Program; Visit Provider Student in an Organized Health Care Education/Training Program
DX: R21 Rash and other nonspecific skin eruption (principal); Z13.1 Encounter for screening for diabetes mellitus; L68.0 Hirsutism; Z13.21 Encounter for screening for nutritional disorder; Z13.220 Encounter for screening for lipoid disorders; Z13.29 Encounter for screening for other suspected endocrine disorder
CPT/HCPCS: 36415; 80050; 80053; 80061; 82306; 82626; 82670; 83001; 83036; 83498; 84146; 84403; 84443; 85025; 86225; 86235

== ENCOUNTER 2025-08-02 08:14 | Outpatient (CLI) | payer OTHER, SELFPAY ==
--- OUTSIDE RECORDS SUMMARY | 2025-08-05 08:26 | XMS_ITS | Clinical Summary ---
[facility] Organization [facility] Address [address] [place] [address] Care Team Providers Care Hamper Maker Name Role Phone Kennedy Sutton MD Primary Care Provider [phone] Allergies Active Allergy Reactions Criticality Noted Date Comments Avocado Hives Medium 04/28/2021 Azithromycin Hives,Unknown (See Comments) Medium 05/09 Cefixime Hives,Unknown (See Comments) Medium 021 Fluconazole Other (See Comments) Low 06/17/2022 Heart racing Latex Swelling High 05/09/2017 Medications LORazepam (ATIVAN) 1 MG tabletIndications: Anxiety Take 1 tablet by mouth Every 6 (Six) Hours As Needed for Anxiety. 10 tablet 08/22/2022 4:31 PM EDT 2 Active albuterol sulfate HFA 108 (90 Base) MCG/ACT inhaler Inhale 1 puff Every 6 (Six) Hours As Needed for Wheezing. Active acetaminophen (TYLENOL) 325 MG tabletIndications: Fever Take 2 tablets by mouth Every 4 (Four) Hours As Needed for Mild Pain or Fever (temperature greater than 101 F). 100 tablet 09/02/2022 11:39 AM EDT 2 Active hydrOXYzine (ATARAX) 25 MG tabletIndications: Pruritus Take 1 tablet by mouth 4 (Four) Times a Day As Needed for Itching, Allergies or Anxiety (Sleep). 120 tablet 2 09/02/2022 11:39 AM EDT 2 Active ibuprofen (ADVIL,MOTRIN) 600 MG tabletIndications: Pain Take 1 tablet by mouth Every 6 (Six) Hours As Needed for Mild Pain or Moderate Pain. 60 tablet 09/02/2022 11:39 AM EDT 2 Active senna 8.6 MG tabletIndications: Constipation Take 1 tablet by mouth 2 (Two) Times a Day As Needed for Constipation. 60 tablet 2 Active simethicone (MYLICON) 80 MG chewable tabletIndications: Flatulence Chew 1 tablet 4 (Four) Times a Day As Needed for Flatulence. 80 tablet 09/02/2022 11:39 AM EDT 2 Active lactobacillus acidophilus (RISAQUAD) capsule capsule Take 1 capsule by mouth Daily. 30 capsule 2 Active polyethylene glycol (MIRALAX) 17 GM/SCOOP powderIndications: Constipation Mix 17 g (1 capful) in liquid and drink by mouth Daily As Needed (constipation ). 238 g 09/02/2022 11:39 AM EDT 2 Active docusate sodium (COLACE) 250 MG capsuleIndications :Constipation Take 1 capsule by mouth 2 (Two) Times a Day As Needed for Constipation. 60 capsule 09/02/2022 11:39 AM EDT 2 Active ondansetron ODT (Zofran ODT) 4 MG disintegrating tabletIndications: Nausea and Vomiting Place 1 tablet on the tongue Every 8 (Eight) Hours As Needed for Nausea or Vomiting. 20 tablet 09/02/2022 11:39 AM EDT 2 Active ferrous gluconate (FERGON) 324 MG tabletIndications: Iron Deficiency Take 1 tablet by mouth Daily With Breakfast. 30 tablet 3 2 Active sodium chloride 0.9 % solution 100 mL with piperacillin-tazob actam 2.25 (2-0.25) g reconstituted solution 4.5 g IVPB Infuse 4.5 g into a venous catheter Every 8 (Eight) Hours. 2 Active levoFLOXacin (LEVAQUIN) 500 MG tablet 2 Active ondansetron ODT (ZOFRAN-ODT) [address] 1 tablet on the tongue Every 4 (Four) Hours. 12 tablet 2 Active aspirin 81 MG EC tablet Take 1 tablet by mouth Daily. 30 tablet 5 2 Active labetalol (NORMODYNE) 100 MG tabletIndications: Hypertension Take 1 tablet by mouth Every 8 (Eight) Hours for 30 days. Indications: High Blood Pressure Disorder 90 tablet 2 Active Hospital, Clinic, or Other Facility Administered Medication Ordered Dose Route Frequency Start Date End Date Status iron sucrose (VENOFER) 200 mg in sodium chloride 0.9 % 100 mL IVPB 200 mg IV Once 09/14/2022 Active Active Problems Problem Noted Date Diagnosed Date Thrombosis 09/04/2022 Pelvic abscess in female 08/29/2022 Sepsis, due to unspecified o rganism, unspecified whether acute organ dysfunction present 08/27/2022 Iron deficiency anemia during 08/12/20 Headache in , antepartum, second trimes ter 07/25/2022 Previous section 06/17/2022 Isoimmunization from blood g roup incompatibility during in second trimester 06/17/2022 Anxiety Resolved Problems Problem Noted Date Diagnosed Date Resolved Date 08/13/2022 08/29/2022 Placenta previa in second trimester 06/17/2022 08/29/2022 Placenta accreta in second trimester 06/17/2022 08/29/2022 Multiple sclerosis affecting 06/17/2022 08/22/2022 Complete placenta previa/anna marie centa accreta with hemorrhage in second trimester requiring /JAMES 08/16/2022 08/22/2022 Acute blood loss anemia requ iring 14 units PRBC 08/22/2022 Family History Medical History Relation Name Comments Hyperlipidemia Father COPD Mother Relation Name Status Comments Father Mother Social History Tobacco Use Types Packs/Day Years Used Date Smoking Tobacco: Former Cigarettes Q uit: 08/11/2022 Smokeless Tobacco: Never Tobacco Cessation:Counseling Given: Not Answered Alcohol Use Standard Drinks/Week Comments Not Currently 0 (1 standard drink = 0.6 oz pur e alcohol) AUDIT-C Answer Date Recorded Q1: How often do you have a drink containing alcohol? Never 09/04/2022 Q2: How many drinks containi ng alcohol do you have on a typical day when you are drinking? Patient does not drink Q3: How often do you have si x or more drinks on one occasion? Never 09/04/2022 PHQ-2 Answer Date Recorded Retired PHQ-9: Brief Depression Severity Measure Score 0 08/01/2022 Abuse Screen Answer Date Recorded Unsafe at Home or Work/School Not on file Feels Threatened by Someone? Not on file Does Anyone Keep You from Co ntacting Others or Doint Things Outside the Home? Not on file 11/01/2023 Physical Sign of Abuse Present Not on file 1 01/02/2023 Housing Stability Answer Date Recorded Current Living Arrangements Not on file 09/20 Potentially Unsafe Housing Conditions Not on cayetano e 10/03/2023 Family and Community Support Answer Geovany e Recorded Help with Day-to-Day Activities Not on file 09/01/2023 Lonely or Isolated Not on file 09/01/2023 Employment Answer Date Recorded Do you want help finding or keeping work or a chinyere b? Not on file 09/01/2023 Disabilities Answer Date Recorded Concentrating, Remembering, or Making Decisions Difficulty Not on file 10/03/2023 Doing Errands Independently Difficulty Not on fi le 10/03/2023 Education Answer Date Recorded Help with school or training? Not on file Preferred Language Not on file 09/01/2023 Education Answer Date Recorded What is the highest level of school you have completed or the highest degree you have received? High school graduate 07/22/2022 Comments No Sex and Gender Information Value Date Recorded Sex Assigned at Not on file Legal Sex Female 8:47 AM EDT Gender Identity Not on file Sexual Orientation Not on file Last Filed Vital Signs Vital Sign Reading Time Taken Comments Blood Pressure 151/97 10/31/2022 9:53 PM EST Pulse 93 10/31/2022 9:53 PM EST Temperature 37.1 C (98.7 F) 10/31/2022 9:53 PM EST Respiratory Rate 14 10/31/2022 9:53 PM EST Oxygen Saturation 94% 10/31/2022 11:45 PM EST Inhaled Oxygen Concentration - - Weight 54.4 kg (120 lb) 10/31/2022 9:53 PM EST Height 144.8 cm (4' 9 ) 10/31/2022 9:53 PM EST Body Mass Index 25.97 10/31/2022 9:53 PM EST Plan of Treatment Health Maintenance Due Date Last Done Comments Annual Gynecologic Pelvic an d Breast Exam 1994 TDAP/TD VACCINES (1 - Tdap) 2013 ANNUAL PHYSICAL 06/06/2022 COVID-19 Vaccine (1 - 2023-2 5 season) 2025 INFLUENZA VACCINE 08/20/2025 HEPATITIS C SCREENING Completed 09/25/2024 Pneumococcal Vaccine 0-49 Aged Out No longer eligible based on patient's age to complete this topic Medical Devices Implanted Type Area Career Law Clerk Device Identifier Shelf Expiration Date Model / Serial / Lot Hemost Abs Surgicel Fibrillar 4x4in - [id number] Implanted:Qty : 1 on 08/16/2022 at [facility] Implant N/A: Abdomen [employer] 12/20/2023 1963 / / [id number] Stnt Percuflx No Gw 6x20 - [id number] Implanted:Qty : 1 on 08/16/2022 at [facility] Stent N/A: Abdomen [employer] 05/09/2025 [id number] / / [id number] Insurance [facility] Advance Directives * CPR (Attempt to Resuscitate) (Latest Code Status on File) Date Activated Date Inactivated Comments 09/04/2022 3:37 AM 09/06/2022 2:22 PM Question Answer Comments Code Status (Patient has no pulse and is not breathing): CPR (Attempt to Resuscitate) Medical Interventions (Patie nt has pulse or is breathing): Full Support Level Of Support Discussed With: Patient * CPR (Attempt to Resuscitate) Date Activated Date Inactivated Comments 09/03/2022 5:03 PM 09/03/2022 11:45 PM No physic katherine signature needed for this code status. Troy as Signed. * CPR (Attempt to Resuscitate) Date Activated Date Inactivated Comments 08/28/2022 9:23 AM 09/02/2022 3:42 PM Question Answer Comments Code Status (Patient has no pulse and is not breathing): CPR (Attempt to Resuscitate) Medical Interventions (Patie nt has pulse or is breathing): Full Support Level Of Support Discussed With: Patient Release to patient: Routine Release * CPR (Attempt to Resuscitate) Date Activated Date Inactivated Comments 08/15/2022 6:39 AM 08/22/2022 7:02 PM Question Answer Comments Code Status (Patient has no pulse and is not breathing): CPR (Attempt to Resuscitate) Medical Interventions (Patie nt has pulse or is breathing): Full Support Level Of Support Discussed With: Patient Release to patient: Routine Release Care Teams Hamper Maker Relationship Specialty Start Date End Date Kennedy Sutton MD [address] [place] [address] PCP - General Family Medicine 08/04/22
--- OUTSIDE RECORDS SUMMARY | 2025-08-05 08:26 | XMS_ITS | Clinical Summary ---
Author Organization Healthcare Address [address] [place] [address] Care Team Providers Care Utilization Management Manager Name Role Phone Pat Dowling MD Unavailable [phone] Leon Smallwood MD Primary Care Provider + [phone] Allergies Active Allergy Reactions Criticality Noted Date Comments Avocado Hives Medium 04/28/2021 Azithromycin Hives,Unknown - Mandi ent states they do not know rxn details Medium 05/09/2017 Cefixime Hives,Unknown - Mandi ent states they do not know rxn details Medium 03/12/2021 Fluconazole Other - please docum ent in the comment field Low 06/17/2022 Heart racing Latex Swelling,Unknown - P atient states they do not know rxn details High 05/09/2017 Tramadol Dizziness Low 07/26/2022 Medications PARoxetine (Paxil) 30 MG tablet Take 1 tablet (30 mg) by mouth 1 (one) time each day in the morning. Active Dimethyl Fumarate (Tecfidera) 240 MG capsule delayed-release Indications:Mul tiple sclerosis (CMS/HCC) Take 1 capsule by mouth 2 (two) times a day. 60 capsule 5 4 Active Additional Information Patient not taking.Reported on 10/03/2024 Acetaminophen Extra Strength 500 MG tablet TAKE ONE TABLET BY MOUTH EVERY 6 HOURS NEEDED FOR FEVER 4 Active amphetamine-dex troamphetamine (Adderall) 5 MG tabletIndicatio ns:MS (multiple sclerosis) (CMS/HCC) TAKE 1 TABLET BY MOUTH TWICE DAILY 60 tablet 5 Active Active Problems Problem Noted Date Diagnosed Date Multiple sclerosis exacerbation 09/25/2024 Blurry vision, bilateral 07/08/2021 Multiple sclerosis 03/27/2021 Multiple neurological symptoms 02/12/2021 Visual symptoms 02/12/2021 White matter disease 02/12/2021 Family History Medical History Relation Name Comments Diabetes Maternal Grandmother Amblyopia Mother Diabetes Mother Multiple sclerosis Other maternal great aunt Cancer Paternal Grandfather Amblyopia Sister Relation Name Status Comments Maternal Grandmother Mother Other maternal great aunt Paternal Grandfather Sister Social History Tobacco Use Types Packs/Day Years Used Date Smoking Tobacco: Former Cigarettes 2019 Smokeless Tobacco: Current Tobacco Cessation:Ready to Q uit: Not Asked; Counseling Given: Not Answered Comments:Vapes Alcohol Use Standard Drinks/Week Comments No 0 (1 standard drink = 0.6 oz pur e alcohol) Humiliation, Afraid, Rape, and Kick questionnair e Answer Date Recorded Within the last year, have y ou been afraid of your partner or ex-partner? No 09/26/2024 Within the last year, have y ou been humiliated or emotionally abused in other ways by your partner or ex-partner? No Within the last year, have y ou been kicked, hit, slapped, or otherwise physically hurt by your partner or ex-partner? No 09/26/2024 Within the last year, have y ou been raped or forced to have any kind of sexual activity by your partner or ex-partner? No 09/26/2024 Hunger Vital Sign Answer Date Recorded Within the past 12 months, y ou worried that your food would run out before you got the money to buy more. Never true 09/26/20 24 Within the past 12 months, t he food you bought just didn't last and you didn't have money to get more. Never true 09/26/2024 PRAPARE - Transportation Answer Date Re corded In the past 12 months, has l ack of transportation kept you from medical appointments or from getting medications? No 05/2024 In the past 12 months, has l ack of transportation kept you from meetings, work, or from getting things needed for daily living? No 09/26/2024 Housing Stability Vital Sign Answer Geovany e Recorded In the last 12 months, was t here a time when you were not able to pay the mortgage or rent on time? No 09/26/2024 In the last 12 months, how many places have you lived? 1 09/26/2024 In the last 12 months, was t here a time when you did not have a steady place to sleep or slept in a jail (including now)? No 09/26/2024 Utilities Answer Date Recorded In the past 12 months has [employer], gas, oil, or water [employer] threatened to shut off services in your home? No 09/26/2024 Comments Unknown Sex and Gender Information Value Date Recorded Sex Assigned at Female 09/25/2024 12:10 PM EST Legal Sex Female 6:49 PM EDT Gender Identity Female 09/25/2024 12:10 PM EST Sexual Orientation Not on file Last Filed Vital Signs Vital Sign Reading Time Taken Comments Blood Pressure 122/78 10/03/2024 9:27 AM EST Pulse 102 10/03/2024 9:27 AM EST Temperature 36.9 C (98.4 F) 09/27/2024 11:01 AM EST Respiratory Rate 16 09/27/2024 7:38 AM EST Oxygen Saturation 99% 10/03/2024 9:27 AM EST Inhaled Oxygen Concentration - - Weight 61 kg (134 lb 7.7 oz) 10/03/2024 9:27 AM EST Height 144.8 cm (4' 9 ) 10/03/2024 9:27 AM EST Body Mass Index 29.1 10/03/2024 9:27 AM EST Plan of Treatment Health Maintenance Due Date Last Done Comments [facility]-Depression Screening 1994 [facility]-/Child/Adol SDOH Screenings 1994 [facility]-Varicella Vaccines (1 of 2 - 13+ 2-dose series) 2007 [facility]-DTaP,Tdap,and Td Vaccines (1 - Tdap) 2013 [facility]-Hepatitis B Vaccines (1 of 3 - 19+ 3-dose series) 2013 [facility]-Pap Smear 2015 HPV Vaccines (1 - 3-dose SCDM series) 2021 [facility]-Cervical Cancer Screening 2024 [facility]-HPV/Cotest 2024 [facility]- SDOH Screenings 03/26/2025 [facility]-Adult SDOH Screenings 03/26/2025 09/26/2024 [id number] Vaccine ( season) 2025 [facility]-Influenza Vaccine (#1) 2025 [facility]-Zoster Vaccines (1 of 2) 2044 [facility]-HIV Screening Completed 09/25/2024, 01/21/2021 [facility]-Hepatitis C Screening Completed 2023, 02/12/2021, 01/21/2021 [facility]-Obesity Intervention Completed 024, 09/25/2024, 01/17/2024, Additional history exists [facility]-HIB Vaccines Aged Out No longer e ligible based on patient's age to complete this topic [facility]-Hepatitis A Vaccines Aged Out No longer eligible based on patient's age to complete this topic [facility]-IPV Vaccines Aged Out No longer e ligible based on patient's age to complete this topic [facility]-Pneumococcal Vaccine: Pediatrics (0 to 5 Years) and At-Risk Patients (6 to 49 Years) Aged Out No longer eligible based on patient's age to complete this topic [facility]-Rotavirus Vaccines Aged Out No lo nger eligible based on patient's age to complete this topic Procedures Procedure Name Priority Date/Time Associated Diagnosis Comments HEPATITIS C ANTIBODY - ED W/REFLEX TO HCV QUANT PCR STAT 09/25/2024 12:15 PM EST ED HIV 1/2 ANTIBODY/ANTIGEN SCREEN WITH REFLEX TO HIV I/II DIFFERENTIATION STAT 09/25/2024 12:15 PM EST from Last 3 Months or Most Recently Relevant to Health Maintenance Results * ED HIV 1/2 Antibody/Antigen Screen w/Reflex to HIV 1/2 Differentiation (09/25/2024 12:15 PM EST) HIV 1 & 2 Antibody/Antigen Screen Non Reactive Non Reactive 09/25/2024 1:35 PM EST [facility] Comment:Screening for HIV 1 & 2 antibodies, and P24 antigen is NONREACTIVE. No confirmatory testing is required. Blood Venous blood specimen / Unknown Venipuncture / Unknown 09/25/2024 12:15 PM EST 09/25/2024 12:51 PM EST Cedric Milligan MD LAB BLOOD ORDERABLES Final Res ult [facility] [address] [place] [address] * Hepatitis C Antibody - ED (09/25/2024 12:15 PM EST) Hepatitis C Antibody Negative Negative 09/25/2024 1:32 PM EST [facility] Blood Venous blood specimen / Unknown Venipuncture / Unknown 09/25/2024 12:15 PM EST 09/25/2024 12:51 PM EST Cedric Milligan MD LAB BLOOD ORDERABLES Final Res ult Performing Organization Address City/[facility] Care [facility]/ZIP Co de Phone Number [facility] [address] [place] [address] from Last 3 Months or Most Recently Relevant to Health Maintenance Insurance [employer] Advance Directives * Full Code (Latest Code Status on File) Date Activated Date Inactivated Comments 09/25/2024 2:56 PM 09/27/2024 2:48 PM Question Answer Comments Patient has decision-making capacity? Yes Care Teams Utilization Management Manager Relationship Specialty Start Date End Date Leon Smallwood MD [address] [place] [address] PCP - General Internal Medicine 01/17/24 Pat Dowling MD [address] [place] [address] Service Attending Neurology 06/25/21
== END 2025-08-02 23:59 ==
LOC: LAB.DROPOF 08-05 08:15
PROVIDERS: PCP Internal Medicine Adolescent Medicine; Visit Provider Nurse Practitioner Family
DX: R35.0 Frequency of micturition (principal)
CPT/HCPCS: 87086; 87088